=== PATIENT | female | born 1965 | race Caucasian/White ===

== ENCOUNTER 2017-06-29 14:43 | Observation (INO) | payer BC, SELFPAY ==
[2017-06-29] VITALS (13 sets, daily range): BP systolic 128–215; BP diastolic 68–98; PULSE 54–76; RESP 16–28; TEMP 36.8–36.9; O2SAT 97–100; BMI 27.1
--- NOTE | 2017-06-29 15:07 | CT_ITS ---
CT Abdomen And Pelvis W/ Contrast INDICATION: RUQ PAIN RADIATING TO MID ABD AND BACK, NAUSEA, HX-KS, GERD, HTN COMPARISON: February 2014 TECHNIQUE: Axial CT imaging of the abdomen and pelvis with IV contrast. Coronal and sagittal reformatted images. 100 mL of Isovue-300 were given intravenously. FINDINGS: The visualized lung bases are clear. The heart size is normal. The liver, spleen, adrenal glands, and pancreas are unremarkable. There is questionable focal gallbladder wall thickening anteriorly, unchanged compared to 2014.. The gallbladder is nondistended. The kidneys enhance contrast symmetrically bilaterally and are without evidence of hydronephrosis. Bowel loops are nondistended. Appendix is unremarkable. Oral contrast material is seen in the stomach and throughout the nondistended small bowel loops and colon. Uterus and urinary bladder are unremarkable. There is no evidence of free air or free fluid. Osseous structures demonstrate degenerative disc disease at L4-5 and L5-S1. CT/Abdomen/Pelvis WITH Contrast IMPRESSION: No acute abnormality in the abdomen or pelvis identified. at 1844 Reported and signed by: Raissa Best MD Electronically Signed: Raissa Best MD at 17:43 EDT Tel , Service support ,
--- NOTE | 2017-06-29 15:10 | ED.DCSUM_ITS ---
- ER Visit Summary Date of Service: 06/29/17 Chief Complaint: Abdominal pain History of Present Illness: The patient is a 52 F with 1 month history of waxing and waning right upper quadrant abdominal pain. She reports having a fever last week she had intermittent nausea and diarrhea. She has very poor appetite but states pain is worsened with food. She reportedly had an ultrasound last week at [facility] that was unremarkable. She has a CT scan of the abdomen scheduled this coming week. Today she presents secondary to increased pain and elevated blood pressure with the pain. Physical Examination: Vital signs are unremarkable. Blood pressure here is 128/ 77. Head neck examination is unremarkable. Heart is regular rate and rhythm. Lung sounds are clear. Abdomen is soft with mild right upper quadrant tenderness palpation. There is no guarding or rebound. She has active bowel sounds noted. Lower extremity examination was no calf tenderness or edema. She has strong distal pulses throughout. Neuro exam is unremarkable. Test Results: EKG is sinus bradycardia at 54 bpm with no sign of acute ischemia. Chest x-ray is unremarkable. CBC and chemistry studies normal. LFTs and lipase normal. Urinalysis is normal. Troponin is less than 0.02. test is negative. CT abdomen pelvis with contrast shows no acute abnormality. Emergency Department Course and Treatment: Patient was given morphine, Zofran, and IV fluids. Although she had a normal blood pressure 128/77 in triage, the next 2 blood pressure readings were 198/84 and 208/89. Manual blood pressure was checked in each arm and these were noted to be accurate. Patient now states that she has been having chest pressure today with elevated BP. The troponin and chest x-ray were added on secondary to this. Patient was given 10 mg of IV hydralazine and blood pressure is currently 162/95. Patient will be admitted for hypertensive urgency. Treatment Plan: [] Disposition: Admit Impression: 1. Hypertensive urgency 2. Right upper quadrant pain, uncertain etiology This note was generated with [employer] dictation software. It may contain incorrect words, spelling, and punctuation that were not noted in review of the chart prior to signing ED Disposition - Plan for ED Patient: Chief Complaint: Abd Pain Referrals: Hilda Hatch MD [Primary Care Provider] -
[2017-06-29] MEDS: Ondansetron 4 MG/2 ML Vial IV (15:23)
[2017-06-29] MEDS: 0.9% Normal Saline 1,000 ML 150 ML IV (15:23)
[2017-06-29] MEDS: Morphine 4 MG/ML Syringe IV (15:23)
[2017-06-29 15:49] LABS: Absolute Lymphocyte Count 1.23 X10^3/ul (0.83-4.51); Absolute Neutrophil Count 6.8 X10^3/uL (2.0-7.7); Basophil# 0.01 X10^3/uL; Basophil% 0.1 % (0-1); Eosinophil# 0.04 X10^3/uL; Eosinophils% 0.5 % (0-5); Hematocrit 40.2 % (37-47); Hemoglobin 13.6 g/dl (12.0-15.0); Lymphocyte # 1.23 X10^3/ul (4.0); Lymphocyte % 14.1 % (19-41); Mean Corp Hgb Conc 33.8 g/gl (32-36); Mean Corpuscular Hgb 29.6 pg (27.0-32.0); Mean Corpuscular Volume 87.6 fL (81-99); Mean Platelet Vol. 9.7 fl (6.2-12.0); Monocyte# 0.61 X10^3/uL; Neutrophil # 6.83 X10^3/uL (2.7-7.7); Neutrophil % 78.2 % (47-70); Platelet Count 262 K/mm3 (150-450); RBC Distribution Width CV 13.1 % (11.6-14.6); RBC Distribution Width SD 40.9 fl (35.1-43.9); Red Blood Count 4.59 M/mm3 (4.2-5.4); White Blood Count 8.7 K/mm3 (4.4-11.0)
[2017-06-29 15:50] LABS: POSITIVE COUNT NO; POSITIVE DIFFERENTIAL NO; POSITIVE MORPHOLOGY NO
[2017-06-29 16:02] LABS: AST(SGOT) 17 U/L (15-37); Alanine Aminotransfer ALT/SGPT 21 U/L (13-56); Albumin, Serum 3.6 g/dL (3.2-5.0); Alkaline Phosphatase 61 U/L (45-117); Anion Gap 8 (5-15); BUN 8 mg/dL (7-18); BUN/Creat Ratio 9.7 RATIO (10-20); Calcium,Total 9.1 mg/dL (8.5-10.1); Chloride 105 mmol/L (98-107); Creatinine, Serum 0.83 mg/dL (0.55-1.02); EST Glomerular Filtration Rate 77 mL/min (>60); Est Glom Filt Rate - Afr Amer 94 mL/min (>60); Estimated Creatinine Clearance 72.16 ml/min; Globulin 3.7 g/dL (2.2-4.2); Glucose 112 mg/dL (74-106); Lipase 181 U/L (73-393); Potassium 3.5 mmol/L (3.5-5.1); Protein, Total 7.3 g/dL (6.4-8.2); Sodium Level 141 mmol/L (136-145)
[2017-06-29 16:05] LABS: Pregnancy, Serum, hCG Quali. NEGATIVE Negative (0-9 Nonpreg)
[2017-06-29 16:55] LABS: Bacteria 0 SEEN /hpf (None Seen); Mucous, Urine 0 SEEN /hpf (<or=2+); Red Blood Cells-Urine 0 SEEN /hpf (0-5); White Blood Cells 0 SEEN /hpf (0-5)
[2017-06-29 16:56] LABS: Color, Urine Straw (Yellow); Glucose, Dipstick Normal (Normal); Ketone-Dipstick Negative (Negative); Leukocyte Esterase-Dipstick Negative /ul (Negative); Nitrite-Dipstick Negative (Negative); Occult Blood-Urine 150 /ul (Negative); Protein-Dipstick Negative (Negative); Urine Bilirubin Dipstick Negative (Negative); Urine Clarity Clear (Clear); Urine Urobilinogen Normal (Normal)
[2017-06-29 17:04] LABS: Squamous Epithelial Cells - UA 0-5 SEEN /hpf (5-10)
--- NOTE | 2017-06-29 17:39 | ED.RN ---
DR RAMOS NOTIFIED OF MANUAL BP RESULTS
--- NOTE | 2017-06-29 17:52 | EKG12_ITS ---
Test Reason : CHEST PAIN Blood Pressure : / mmHG Vent. Rate : 054 BPM Atrial Rate : 054 BPM P-R Int : 126 ms QRS Dur : 082 ms QT Int : 438 ms P-R-T Axes : 052 020 012 degrees QTc Int : 415 ms Sinus bradycardia with sinus arrhythmia Otherwise normal ECG Confirmed by LINDSEY GONZALES, YVETTE ([id number]), technical editor LINDY RAMIREZ ([id number]) on 07/02/2017 1:23:49 PM Referred By: Confirmed By:YVETTE PORTILLO MD
--- NOTE | 2017-06-29 18:05 | RAD_ITS ---
STUDY: X-RAY CHEST REASON FOR EXAM: Female, 52 years old. Hypertension. TECHNIQUE: Single frontal view of the chest. COMPARISON: None. FINDINGS: The lungs are mildly hyperexpanded. There is scarring in the left midlung zone. There is no demonstrated pleural abnormality. Normal size heart. Normal mediastinum and jeff. Normal visualized pulmonary arteries. Normal visualized aortic arch and descending thoracic aorta. Normal visualized thoracic spine. Normal visualized ribs, clavicles, and shoulders. There is no demonstrated abnormality of the visualized soft tissue structures of the upper abdomen. RAD/Chest 1 View (Portable) IMPRESSION: No acute pathology of the chest. Electronically Signed: Ethan Jacome MD at 18:40 EDT , Service support ,
[2017-06-29] MEDS: hydrALAZINE 20 MG/ML Vial 10 MG IV (18:24)
--- NOTE | 2017-06-29 20:26 | PCM.HP.STD ---
Problem List (1) Hypertensive urgency Status: Acute (2) Abdominal pain Status: Acute (3) Diarrhea Status: Acute History of Present Illness Date of Admission: 06/29/17 Chief Complaint: HTN urgency The patient is a 52 year old female w/ h/o HTN admitted for HTN urgency. She has a h/o intermittent abdominal pain. Pain is across her upper abdominal area. Nothing made it better or worse. It is not associated with food. Pain is moderate to severe and would last for hours. She has been having poor appetite because of the pain. She also has intermittent nausea. She has not had any relief in her symptoms for the past few days and went to the ED for further workup. She also noted that her blood pressure would be high secondary to her abdominal pain. Past Medical History Allergies nitrofurantoin [From Macrobid] Allergy (Verified 06/29/17 14:45) Rash nitrofurantoin macrocrystalline [From Macrobid] Allergy (Verified 06/29/17 14:45) Rash phenazopyridine [From Pyridium] Allergy (Verified 06/29/17 14:45) Rash acetaminophen [From Darvocet-N] Adverse Reaction (Verified 06/29/17 14:45) Other bupropion HCl [From Wellbutrin] Adverse Reaction (Verified 06/29/17 14:45) Nausea propoxyphene napsylate [From Darvocet-N] Adverse Reaction (Verified 06/29/17 14:45) Other Home Medications: Ambulatory Orders Medication Instructions Recorded Hydrocodone Bitart/Apap 5-325 1 tablet PO Q6H PRN PRN 06/29/17 [[place] 5MG-325MG] Metoprolol Succinate [Toprol Xl] 50 mg PO BID 06/29/17 Metoprolol Tartrate 50 mg PO BID 06/29/17 Omeprazole 20 mg PO BID 06/29/17 Ranitidine HCl [Zantac 75] 75 mg PO DAILY PRN 06/29/17 Smoking Status: Former smoker Alcohol: None Drugs: None - *Family History Maternal History Items: No pertinent history Review of Systems Constitutional: Denies: Chills, Fever, Weight Change HEENT: Denies: Head Aches, Sinus Congestion, Sinus Drainage Cardiovascular: Denies: Chest Pain, Palpitations Respiratory: Denies: Cough, Shortness of breath at rest, Sputum production Gastrointestinal: Denies: Abdominal Pain, Nausea, Vomiting Genitourinary: Denies: Dysuria Musculoskeletal: Denies: Joint Pain, Joint Tenderness Skin: Denies: Rash, Wounds Neurological: Denies: Numbness, Tingling, Focal weakness Psychiatric: Denies: Anxiety, Depression, Homicidal Ideations, Suicidal Ideations Hematologic/ Lymphatic: Denies: Easy Bruising, Easy Bleeding VTE Information - Inpt Only VTE Present on Admission: No VTE Mechan Device Prophylaxis: SCD's VTE Pharm Prophylaxis ordered?: Yes Patient Problems: Active and Suspected Problems Hypertensive urgency (Acute) Abdominal pain (Acute) Diarrhea (Acute) - Physical Exam General: Alert, Oriented x3, Cooperative HEENT: Atraumatic, PERRLA, EOMI, Normocephalic Neck: Supple, No JVD, Negative Carotid Bruits Lungs: Clear to auscultation, Normal air movement Cardiovascular: Regular rate, No murmurs Abdomen: Bowel Sounds Present, Soft, Non Tender Extremities: No edema, Capillary Refill Less than 3 Seconds Skin: No rashes, No breakdown Musculoskeletal: No Tenderness to Palpation of Joints or Extremities Neurological: Cranial nerves II-XII grossly intact Psych/Mental Status: Normal Affect, Appropriate Vital Signs Temp Pulse Resp BP Pulse Ox 98.3 F 74 28 H 197/98 H 100 06/29/17 19:32 06/29/17 20:01 06/29/17 20:01 06/29/17 20:01 06/29/17 20:01 Oxygen Delivery Method Room Air Weight: 73.936 kg Body Mass Index (BMI) 27.1 Laboratory Tests Past 24 Hrs 06/29/17 06/29/17 06/29/17 15:30 15:30 15:30 WBC 8.7 RBC 4.59 Hgb 13.6 Hct 40.2 MCV 87.6 MCH 29.6 MCHC 33.8 RDW 13.1 RDW Differential 40.9 Plt Count 262 MPV 9.7 Immature Gran % (Auto) 0.100 Neut % (Auto) 78.2 H Lymph % (Auto) 14.1 L [place] % (Auto) 7.0 Eos % (Auto) 0.5 Baso % (Auto) 0.1 Absolute Neuts (auto) 6.8 Absolute Lymphs (auto) 1.23 Total Counted Not Reportable Sodium 141 Potassium 3.5 Chloride 105 Carbon Dioxide 28.0 Anion Gap 8 BUN 8 Creatinine 0.83 Estim Creat Clear Calc 72.16 Est GFR (MDRD) Af Amer 94 Est GFR (MDRD) Non-Af 77 BUN/Creatinine Ratio 9.7 L Glucose 112 H Calcium 9.1 Total Bilirubin 0.40 Direct Bilirubin 0.10 AST 17 ALT 21 Alkaline Phosphatase 61 Troponin I Total Protein 7.3 Albumin 3.6 Globulin 3.7 Lipase 181 Serum , Qual NEGATIVE Urine Color Urine Clarity Urine pH Ur Specific Irene Urine Protein Urine Glucose (UA) Urine Ketones Urine Occult Blood Urine Nitrite Urine Bilirubin Urine Urobilinogen Ur Leukocyte Esterase Urine RBC Urine WBC Ur Squamous Epith Cells Urine Bacteria Urine Mucus 06/29/17 06/29/17 15:30 16:40 WBC RBC Hgb Hct MCV MCH MCHC RDW RDW Differential Plt Count MPV Immature Gran % (Auto) Neut % (Auto) Lymph % (Auto) [place] % (Auto) Eos % (Auto) Baso % (Auto) Absolute Neuts (auto) Absolute Lymphs (auto) Total Counted Sodium Potassium Chloride Carbon Dioxide Anion Gap BUN Creatinine Estim Creat Clear Calc Est GFR (MDRD) Af Amer Est GFR (MDRD) Non-Af BUN/Creatinine Ratio Glucose Calcium Total Bilirubin Direct Bilirubin AST ALT Alkaline Phosphatase Troponin I < 0.02 Total Protein Albumin Globulin Lipase Serum , Qual Urine Color Straw Urine Clarity Clear Urine pH 8.0 Ur Specific Irene 1.010 Urine Protein Negative Urine Glucose (UA) Normal Urine Ketones Negative Urine Occult Blood 150 H Urine Nitrite Negative Urine Bilirubin Negative Urine Urobilinogen Normal Ur Leukocyte Esterase Negative Urine RBC 0 SEEN Urine WBC 0 SEEN Ur Squamous Epith Cells 0-5 SEEN Urine Bacteria 0 SEEN Urine Mucus 0 SEEN Assessment/Plan Active and Suspected Problems Hypertensive urgency (Acute) Abdominal pain (Acute) Diarrhea (Acute) 52 year old female w/ h/o HTN admitted for HTN urgency. 1) HTN urgency: Most likely secondary to pain. Improving. Resume home meds. Monitor. 2) Abdominal pain: Unclear etiology. Workup negative. Possible inflammatory bowel disease given fecal lactoferrin positive. Infectious workup and FOBT pending. Will consider outpt workup, including colonoscopy if needed to r/o inflammatory bowel disease. 3) Diarrhea: Will get stool cultures. C. diff negative. Supportive care. 4) Prophylaxis: SCD / heparin.
[2017-06-29] MEDS: 0.45% Normal Saline 1,000 ML 125 ML IV (22:18)
[2017-06-29] MEDS: HYDROcodone Bitartrate/Apap 5/325 Tablet PO (22:18)
[2017-06-29] MEDS: Pantoprazole Sodium 20 MG Tablet PO (22:18)
[2017-06-29] MEDS: amLODIPine 10 MG Tablet PO (22:19)
[2017-06-29 22:50] LABS: Lactic Acid 0.7 mmol/L (0.4-2.0)
[2017-06-29] MEDS: Metoprolol Tartrate 50 MG Tablet PO (23:08)
[2017-06-30] VITALS (13 sets, daily range): BP systolic 159–160; BP diastolic 85–91; PULSE 57–82; RESP 16–18; TEMP 36.2–36.3; O2SAT 98
[2017-06-30 00:22] LABS: Amphetamine Urine VISTA NEGATIVE (<1000 ng/mL); Barbiturate Urine VISTA NEGATIVE (< 200 ng/mL); Benzodiazepine Urine VISTA NEGATIVE (< 200 ng/mL); Cocaine Urine VISTA NEGATIVE (< 300 ng/mL); Ecstacy Urine VISTA NEGATIVE (< 500 ng/mL); Methadone Urine VISTA NEGATIVE (< 300 ng/mL); PCP Urine VISTA NEGATIVE (< 25 ng/mL); THC Urine VISTA NEGATIVE (< 50 ng/mL); Vista UDS pH Range 6
[2017-06-30] MEDS: HYDROcodone Bitartrate/Apap 5/325 Tablet PO ×2 (04:31→14:57)
[2017-06-30] MEDS: 0.45% Normal Saline 1,000 ML 125 ML IV (06:10)
[2017-06-30 06:36] LABS: Absolute Lymphocyte Count 1.67 X10^3/ul (0.83-4.51); Absolute Neutrophil Count 4.4 X10^3/uL (2.0-7.7); Basophil# 0.01 X10^3/uL; Basophil% 0.2 % (0-1); Eosinophils% 1.5 % (0-5); Hematocrit 40.9 % (37-47); Hemoglobin 13.4 g/dl (12.0-15.0); Lymphocyte # 1.67 X10^3/ul (4.0); Lymphocyte % 25.1 % (19-41); Mean Corp Hgb Conc 32.8 g/gl (32-36); Mean Corpuscular Hgb 29.4 pg (27.0-32.0); Mean Corpuscular Volume 89.7 fL (81-99); Mean Platelet Vol. 9.4 fl (6.2-12.0); Monocyte# 0.51 X10^3/uL; Monocyte% 7.7 % (0-10); Neutrophil # 4.36 X10^3/uL (2.7-7.7); Neutrophil % 65.3 % (47-70); Platelet Count 205 K/mm3 (150-450); RBC Distribution Width CV 13.3 % (11.6-14.6); RBC Distribution Width SD 43.1 fl (35.1-43.9); Red Blood Count 4.56 M/mm3 (4.2-5.4); White Blood Count 6.7 K/mm3 (4.4-11.0)
[2017-06-30 06:47] LABS: POSITIVE COUNT NO; POSITIVE DIFFERENTIAL NO; POSITIVE MORPHOLOGY NO
[2017-06-30 07:11] LABS: Anion Gap 7 (5-15); BUN 6 mg/dL (7-18); BUN/Creat Ratio 8.6 RATIO (10-20); Calcium,Total 8.9 mg/dL (8.5-10.1); Chloride 104 mmol/L (98-107); EST Glomerular Filtration Rate 94 mL/min (>60); Est Glom Filt Rate - Afr Amer 114 mL/min (>60); Estimated Creatinine Clearance 85.56 ml/min; Glucose 105 mg/dL (74-106); Potassium 3.6 mmol/L (3.5-5.1); Sodium Level 138 mmol/L (136-145)
[2017-06-30] MEDS: Ondansetron ODT 4 MG Tablet PO (09:28)
[2017-06-30] MEDS: Pantoprazole Sodium 20 MG Tablet PO ×2 (09:34→22:00)
[2017-06-30] MEDS: Metoprolol Tartrate 50 MG Tablet PO ×2 (09:34→22:00)
[2017-06-30] MEDS: hydroCHLOROthiazide 25 MG Tablet PO (09:34)
--- NOTE | 2017-06-30 10:28 | PN_ITS ---
Patient Problems: Active and Suspected Problems Hypertensive urgency (Acute) Abdominal pain (Acute) Diarrhea (Acute) Subjective: Cc: Elevated blood pressure, atypical chest pain Objective: The patient is a 52 F presented waxing and waning right upper quadrant abdominal pain to have elevated blood pressure with systolic blood pressure > 190. When I saw her on rounds she was pointing to her chest and not her abdomen. GB ultrasound done as an outpatient was negative for cholecystopathy. Vitals/I&O's: Vital Signs Temp Pulse Resp BP Pulse Ox 97.2 F L 82 18 159/85 H 98 06/30/17 09:43 06/30/17 09:43 06/30/17 09:43 06/30/17 09:43 06/30/17 09:43 Oxygen Delivery Method Room Air Weight: 73.9 kg Body Mass Index (BMI) 27.1 Intake and Output for Last 24 Hours 06/28/17 06/29/17 06/30/17 23:59 23:59 23:59 Intake Total 496 / 496 1016 / 1016 Output Total 600 / 600 Balance 496 / 496 416 / 416 Microbiology Past 72 Hours 06/30/17 09:05 Stool Stool Occult Blood (KHOI) - Final Occult Blood Positive 06/29/17 22:20 Stool C. difficile DNA Amplification - Final 06/29/17 22:20 Stool Stool Lactoferrin - Final Laboratory Results 06/29/17 22:00: Troponin I < 0.02 06/29/17 22:00: Lactic Acid 0.7 06/29/17 23:30: Urine Opiates Screen POSITIVE H, Urine Methadone Screen NEGATIVE , Ur Barbiturates Screen NEGATIVE, Ur Phencyclidine Scrn NEGATIVE, Ur Amphetamines Screen NEGATIVE, U Methamphetamin-MDMA NEGATIVE, U Benzodiazepines Scrn NEGATIVE, Urine Cocaine Screen NEGATIVE, U Cannabinoids Screen NEGATIVE, Ur Drug Screen Comment 06/30/17 00:33: Troponin I < 0.02 06/30/17 06:02: Sodium 138, Potassium 3.6, Chloride 104, Carbon Dioxide 27.0, Anion Gap 7, BUN 6 L, Creatinine 0.70, Estim Creat Clear Calc 85.56, Est GFR ( MDRD) Af Amer 114, Est GFR (MDRD) Non-Af 94, BUN/Creatinine Ratio 8.6 L, Glucose 105, Calcium 8.9, Troponin I < 0.02 06/30/17 06:02: WBC 6.7, RBC 4.56, Hgb 13.4, Hct 40.9, MCV 89.7, MCH 29.4, MCHC 32.8, RDW 13.3, RDW Differential 43.1, Plt Count 205, MPV 9.4, Immature Gran % ( Auto) 0.200, Neut % (Auto) 65.3, Lymph % (Auto) 25.1, [place] % (Auto) 7.7, Eos % ( Auto) 1.5, Baso % (Auto) 0.2, Absolute Neuts (auto) 4.4, Absolute Lymphs (auto) 1.67, Total Counted Not Reportable Current Medications Hydrocodone Bitart/Acetaminophen ([place] 5mg-325mg) 1 tablet PO Q6H PRN PRN PRN Reason: PAIN Last Admin: 06/30/17 04:31 Dose: 1 tablet Famotidine (Pepcid) 10 mg PO DAILY PRN PRN PRN Reason: INDIGESTION Heparin Sodium (Porcine) (Heparin Na) 5,000 unit SC Q8 [facility] Last Admin: 06/30/17 06:10 Dose: 5,000 u Hydrochlorothiazide (Hctz) 25 mg PO DAILY [facility] Last Admin: 06/30/17 09:34 Dose: 25 mg Sodium Chloride () 1,000 mls @ 125 mls/hr IV .Q8H [facility] Last Admin: 06/30/17 06:10 Dose: 125 mls/hr Sodium Chloride () 250 mls @ 15 mls/hr IV .[id number] PRN PRN Reason: SALINE FLUSH Magnesium Hydroxide (Milk Of Magnesia) 30 ml PO DAILY PRN PRN PRN Reason: Constipation Metoprolol Tartrate (Lopressor (Beta Saloni)) 50 mg PO BID [facility] Last Admin: 06/30/17 09:34 Dose: 50 mg Morphine Sulfate () 2 mg IV Q4H PRN PRN PRN Reason: SEVERE PAIN (6-10/10) Nutritional Formula (Lactose Free) (Ensure Clear) 120 ml PO 4X/DAY [facility] Ondansetron HCl (Zofran Odt) 4 mg PO Q8H PRN PRN PRN Reason: NAUSEA/VOMITING Last Admin: 06/30/17 09:28 Dose: 4 mg Pantoprazole Sodium (Protonix) 20 mg PO BID [facility] Last Admin: 06/30/17 09:34 Dose: 20 mg Sodium Chloride () 5 - 30 ml IV UD PRN PRN Reason: SALINE FLUSH Medical Necessity - Tobacco Use Smoking Status: Former smoker Assessment/Plan Active and Suspected Problems Hypertensive urgency (Acute) Abdominal pain (Acute) Diarrhea (Acute) 1. Hypertension; she is on metoprolol and hydrochlorothiazide, will add lisinopril for optimal control 2. Chest pain; atypical for angina, we will schedule for stress test tomorrow morning. 3. Dyspepsia ; possible cholecystopathy, CT scan of the abdomen showed questionable gallbladder wall thickening, gallbladder ultrasound done as an outpatient was normal,the patient can follow with her primary care doctor as an outpatient for further management. Continue on PPI. 4. anxiety ; she is requesting low dose Xanax. 5. Early ambulation for DVT prophylaxis Code Visit Inpatient E&M: 02326 Subs Hosp L2
[2017-06-30] MEDS: ALPRAZolam 0.25 MG Tablet 0.125 MG PO ×2 (11:17→22:01)
[2017-07-01] VITALS (7 sets, daily range): BP systolic 129–153; BP diastolic 79–93; PULSE 55–71; RESP 16; TEMP 36.6–36.7; O2SAT 97–100
[2017-07-01] MEDS: 0.9% NaCl Peripheral Flush Adult/Peds IV (06:01)
--- NOTE | 2017-07-01 10:15 | CM.UR ---
Per interdisciplinary rounds, plan is for dc today if stress test is negative per Dr. Tang. Dr. Vazquez to see pt prior to dc and f/u outpt if needed. Rosendo BSN RN ACM
--- NOTE | 2017-07-01 11:55 | STRESSREP ---
Stress Test Report Exercise myocardial perfusion stress test. 52-year-old lady with a history of chest pain. Stress protocol: Resting EKG demonstrates normal sinus rhythm with rate of 67 bpm normal intervals and noted resting blood pressure is 152/98 mmHg. The patient exercised according to the regular Emery protocol for a total duration of 7 minutes. The maximum heart rate attained was 169 bpm which was 100% of the maximum predicted heart rate the maximum workload attained was 8.5 metabolic equivalents. At rest there were no ST or T-wave changes noted suggest ischemia at peak exercise no ST or T-wave changes were noted suggest ischemia. No clinical angina was noted. The resting blood pressure was 152/98 with a peak blood pressure 192 over 70 mmHg. Myocardial perfusion protocol. 10.6 mCi of technetium 99m sestamibi was injected at rest. The patient exercised according to regular Emery protocol for total duration of 7 minutes attaining 100% of maximum predicted heart rate at peak exercise 32.9 mCi of technetium 99m sestamibi was injected. Stress and rest images were reconstructed and compared in the short axis vertical long and horizontal long axis. Gated images were also obtained Perfusion SPECT analysis. Review of the stress images demonstrate normal uptake of tracer noted in all areas of the myocardium the resting images similarly demonstrate normal uptake of tracer noted in all areas of the myocardium. No areas of reversibility are noted suggest ischemia and no previous infarct is noted. Gated SPECT analysis: The gated ejection fraction is noted to be 65%. Conclusion: Normal exercise myocardial perfusion stress test at a moderate workload. Resting hypertension and hypertensive response to exercise. Preserved ejection fraction.
[2017-07-01] MEDS: hydroCHLOROthiazide 25 MG Tablet PO (11:58)
[2017-07-01] MEDS: Pantoprazole Sodium 20 MG Tablet PO (11:59)
[2017-07-01] MEDS: Metoprolol Tartrate 50 MG Tablet PO (11:59)
[2017-07-01] MEDS: ALPRAZolam 0.25 MG Tablet 0.125 MG PO (12:01)
[2017-07-01] MEDS: Lisinopril 10 MG Tablet PO (12:01)
[2017-07-01] MEDS: Ondansetron ODT 4 MG Tablet PO (12:02)
--- NOTE | 2017-07-01 16:00 | DCINST_ITS ---
- Discharge Diagnoses Current Active Problems: Current Active and Chronic Problems Hypertensive urgency (Acute) Abdominal pain (Acute) Diarrhea (Acute) You will use the following diet at home:: Regular Discharge Activity: Return to Normal Activity Call your doctor if you observe: Fever of 101 or Higher Allergies/Adverse Reactions: Allergies nitrofurantoin [From Macrobid] Allergy (Verified 06/29/17 14:45) Rash nitrofurantoin macrocrystalline [From Macrobid] Allergy (Verified 06/29/17 14:45 ) Rash phenazopyridine [From Pyridium] Allergy (Verified 06/29/17 14:45) Rash acetaminophen [From Darvocet-N] Adverse Reaction (Verified 06/29/17 14:45) Other bupropion HCl [From Wellbutrin] Adverse Reaction (Verified 06/29/17 14:45) Nausea propoxyphene napsylate [From Darvocet-N] Adverse Reaction (Verified 06/29/17 14: 45) Other Medications to take at Discharge Hydrocodone Bitart/Apap 5-325 [[place] 5/325] 1 tablet PO Q6H PRN PRN 06/29/17 Metoprolol Succinate [Toprol Xl] 50 mg PO BID 06/29/17 Metoprolol Tartrate 50 mg PO BID 06/29/17 Omeprazole 20 mg PO BID 06/29/17 Ranitidine HCl [Zantac 75] 75 mg PO DAILY PRN 06/29/17 Hydrochlorothiazide [Hctz] 25 mg PO DAILY #30 tab 07/01/17 Lisinopril [Zestril] 10 mg PO DAILY #30 tab 07/01/17 Potassium Chloride 10 meq PO DAILY #14 tablet.er 07/01/17 The following prescriptions were given: Hydrochlorothiazide [Hctz] 25 mg PO DAILY #30 tab Lisinopril [Zestril] 10 mg PO DAILY #30 tab Potassium Chloride 10 meq PO DAILY #14 tablet.er Primary Care Physician: Hilda Hatch MD [Primary Care Provider] - Please follow up with your Primary Care Physician in: in 2 weeks Please Follow Up With: Aman Vazquez MD When: call rico to make apointment
--- NOTE | 2017-07-01 16:00 | PCM.DC.SUM ---
Discharge Date and Diagnosis Date of Admission: 06/29/17 Date of Discharge: 07/01/17 - Primary Discharge Diagnosis Active and Suspected Problems 1) HTN urgency: 2. Nonspecific anterior chest pain probably radiation from abdominal pain/dyspeptic symptoms: 2) acute on recurrent abdominal pain: possible gallbladder dyskinesia/nonspecific dyspepsia/gastritis: 3) acute diarrhea, nonspecific, most probably viral gastroenteritis: Resolved. C. diff negative. Enteric Bacteroides panel was negative. Hospital Course and Treatment Summary of Care Provided: The patient is a52 year old female w/ h/o HTN admitted for HTN urgency. She also has intermittent right upper quadrant abdominal pain on and off for 2-3 months associated with intermittent nausea. Her pain gets worse after about half an hour of meal. She was further admitted on [facility] floor for uncontrolled blood pressure and abdominal pain. 1) HTN urgency: Acute coronary syndrome was ruled out with negative cardiac enzymes. Her blood pressure was controlled after starting on HCTZ 25 mg daily and lisinopril 10 mg daily. Patient was advised to follow-up PCP in 2 weeks and home blood pressure monitoring before breakfast and adjust antihypertensive medication accordingly in consultation with PCP. 2. Nonspecific anterior chest pain probably radiation from abdominal pain/dyspeptic symptoms: Patient had a stress test today. A stress dose was negative for myocardial ischemia. 2) Abdominal pain: possible gallbladder dyskinesia/nonspecific dyspepsia/gastritis: CT scan of the abdomen showed questionable gallbladder wall thickening, gallbladder ultrasound done as an outpatient was normal. Dr. Fragoso was consulted. On further review her medical record, she had a HIDA scan about 2 years ago with 90% EF. She also had colonoscopy by Dr. Cabral at that time which showed 1 polyp. She had home remedy advised by chiropractor with [facility] on all which she thinks flow start her gallstone but had severe abdominal pain at that time. Dr. Fragoso consult reviewed and appreciated. He recommended outpatient HIDA and further management as per HIDA scan report. Continue on PPI. 3) acute diarrhea, nonspecific, most probably viral gastroenteritis: Resolved. C. diff negative. Enteric Bacteroides panel was negative. Supportive care. 4) Prophylaxis: SCD / heparin. The patient is being discharged home. Discharge medication reconciliation done. Prescription for antihypertensive medications, HCTZ and lisinopril sent to her pharmacy. Total time spent, exact 32 minutes on discharge meds reconciliation, examination, review of imaging and blood test and discussion with the patient on follow-up instructions. Discharge Activity: Return to Normal Activity Call your doctor if you observe: Fever of 101 or Higher Home Medications: Medications to take at Discharge Hydrocodone Bitart/Apap 5-325 [[place] 5/325] 1 tablet PO Q6H PRN PRN 06/29/17 Metoprolol Succinate [Toprol Xl] 50 mg PO BID 06/29/17 Metoprolol Tartrate 50 mg PO BID 06/29/17 Omeprazole 20 mg PO BID 06/29/17 Ranitidine HCl [Zantac 75] 75 mg PO DAILY PRN 06/29/17 Hydrochlorothiazide [Hctz] 25 mg PO DAILY #30 tab 07/01/17 Lisinopril [Zestril] 10 mg PO DAILY #30 tab 07/01/17 Potassium Chloride 10 meq PO DAILY #14 tablet.er 07/01/17 Following Prescrptions Were Given to Patient: Hydrochlorothiazide [Hctz] 25 mg PO DAILY #30 tab Lisinopril [Zestril] 10 mg PO DAILY #30 tab Potassium Chloride 10 meq PO DAILY #14 tablet.er Primary Care Physician: Hilda Hatch MD [Primary Care Provider] - Please follow up with your Primary Care Physician in: in 2 weeks Please Follow Up With: Aman Vazquez MD When: call rico to make apointment Medical Necessity - Tobacco Use Smoking Status: Former smoker Meaningful Use Info Meaningful Use Diagnoses (Choose all that apply): None applicable Code Visit Inpatient E&M: 64236 Disch Hosp
--- NOTE | 2017-07-01 16:07 | PCM.CONS.GEN ---
Reason for Consult Date of Consultation: 07/01/17 History of Present Illness: The patient is a 52 year old F right upper quadrant pain. the patient has a long-standing history of right upper quadrant pain. Workup in the past has been negative. She had a hiatus scan with ejection fraction 2 years previously. this demonstrated 90% ejection fraction. The patient does not recall this reproduced her symptoms. The patient had seen Dr. Ovidio Cabral at that time. He recommended colonoscopy. Colonoscopy demonstrated a polyp. the patient was recommended 3 year follow-up colonoscopy. She did not have upper endoscopy. at that time, the patient took a home remedy gallbladder flush consisting of all of oil and vinegar. She feels she had significant abdominal cramping and then was followed by what she felt was passing a gallstone in her stool. Chicken, mashed potatoes, and bladder. She had severe epigastric to right upper quadrant pain. She presented to [facility]. She was admitted to rule out chest pain. The patient had negative cardiac enzymes. The patient had a negative stress test today. I was consulted for GI causes of upper abdominal pain-biliary colic versus peptic ulcer disease. The patient is a former smoker. she denies melena, hematochezia, nausea or vomiting. She does not take nonsteroidal medications. Her pain again is more right upper quadrant and is more colicky in nature. She says it is similar to when she had a kidney stone. she has chronic lower back pain. she had previous lumbar back surgery. 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 CT scan of the abdomen pelvis was obtained. This demonstrated no specific abnormalities. A right ovarian cyst was noted. Past Medical History Allergies nitrofurantoin [From Macrobid] Allergy (Verified 06/29/17 14:45) Rash nitrofurantoin macrocrystalline [From Macrobid] Allergy (Verified 06/29/17 14:45) Rash phenazopyridine [From Pyridium] Allergy (Verified 06/29/17 14:45) Rash acetaminophen [From Darvocet-N] Adverse Reaction (Verified 06/29/17 14:45) Other bupropion HCl [From Wellbutrin] Adverse Reaction (Verified 06/29/17 14:45) Nausea propoxyphene napsylate [From Darvocet-N] Adverse Reaction (Verified 06/29/17 14:45) Other Home Medications: Ambulatory Orders Medication Instructions Recorded Hydrocodone Bitart/Apap 5-325 1 tablet PO Q6H PRN PRN 06/29/17 [[place] 5/325] Metoprolol Succinate [Toprol Xl] 50 mg PO BID 06/29/17 Metoprolol Tartrate 50 mg PO BID 06/29/17 Omeprazole 20 mg PO BID 06/29/17 Ranitidine HCl [Zantac 75] 75 mg PO DAILY PRN 06/29/17 Hydrochlorothiazide [Hctz] 25 mg PO DAILY #30 tab 07/01/17 Lisinopril [Zestril] 10 mg PO DAILY #30 tab 07/01/17 Potassium Chloride 10 meq PO DAILY #14 tablet.er 07/01/17 Surgical History: - - surgical microdiscectomy. Lumbar Smoking Status: Former smoker Alcohol: None Drugs: None - *Family History Maternal History Items: No pertinent history Review of Systems Constitutional: Denies: Chills, Fever, Weight Change HEENT: Denies: Head Aches, Sinus Congestion, Sinus Drainage Cardiovascular: Denies: Chest Pain, Palpitations Respiratory: Denies: Cough, Shortness of breath at rest, Sputum production Gastrointestinal: Reports: Abdominal Pain. Denies: Nausea, Vomiting Genitourinary: Denies: Dysuria Musculoskeletal: Denies: Joint Pain, Joint Tenderness Skin: Denies: Rash, Wounds Neurological: Denies: Numbness, Tingling, Focal weakness Psychiatric: Denies: Anxiety, Depression, Homicidal Ideations, Suicidal Ideations Hematologic/ Lymphatic: Denies: Easy Bruising, Easy Bleeding Patient Problems: Active and Suspected Problems Hypertensive urgency (Acute) Abdominal pain (Acute) Diarrhea (Acute) - Physical Exam Vital Signs Temp Pulse Resp BP Pulse Ox 98.0 F 59 L 16 131/81 H 97 07/01/17 14:24 07/01/17 14:24 07/01/17 14:24 07/01/17 14:24 07/01/17 14:24 Oxygen Delivery Method Room Air Weight: 73.9 kg Body Mass Index (BMI) 27.1 Intake and Output for Last 24 Hours 06/29/17 06/30/17 07/01/17 23:59 23:59 23:59 Intake Total 496 / 496 1906 / 1906 620 / 620 Output Total 1400 / 1400 Balance 496 / 496 506 / 506 620 / 620 Microbiology Past 72 Hours 06/30/17 09:05 Enteric Bacteriology - Final Stool 06/30/17 09:05 Stool Occult Blood (KHOI) - Final Stool Occult Blood Positive 06/29/17 22:20 C. difficile DNA Amplification - Final Stool 06/29/17 22:20 Stool Lactoferrin - Final Stool Assessment/Plan Active and Suspected Problems Hypertensive urgency (Acute) Abdominal pain (Acute) Diarrhea (Acute) upper abdominal pain. the patient's stress test was negative. Up to this point, her right upper quadrant pain. Workup has been unremarkable area did we will plan for repeat hiatus scan with ejection fraction and see if this reproduces her symptoms. If she has a decreased ejection fraction, then I would proceed with laparoscopic cholecystectomy given her symptomatology. If this test is negative, then I would plan for upper endoscopy.
--- NOTE | 2017-07-01 16:19 | CON.PCM_ITS ---
Reason for Consult Date of Consultation: 07/01/17 History of Present Illness: The patient is a 52 year old F right upper quadrant pain. the patient has a long-standing history of right upper quadrant pain. Workup in the past has been negative. She had a hiatus scan with ejection fraction 2 years previously. this demonstrated 90% ejection fraction. The patient does not recall this reproduced her symptoms. The patient had seen Dr. Ovidio Cabral at that time. He recommended colonoscopy. Colonoscopy demonstrated a polyp. the patient was recommended 3 year follow-up colonoscopy. She did not have upper endoscopy. at that time, the patient took a home remedy gallbladder flush consisting of all of oil and vinegar. She feels she had significant abdominal cramping and then was followed by what she felt was passing a gallstone in her stool. Chicken, mashed potatoes, and bladder. She had severe epigastric to right upper quadrant pain. She presented to [facility]. She was admitted to rule out chest pain. The patient had negative cardiac enzymes. The patient had a negative stress test today. I was consulted for GI causes of upper abdominal pain-biliary colic versus peptic ulcer disease. The patient is a former smoker. she denies melena, hematochezia, nausea or vomiting. She does not take nonsteroidal medications. Her pain again is more right upper quadrant and is more colicky in nature. She says it is similar to when she had a kidney stone. she has chronic lower back pain. she had previous lumbar back surgery. 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 CT scan of the abdomen pelvis was obtained. This demonstrated no specific abnormalities. A right ovarian cyst was noted. Past Medical History Allergies nitrofurantoin [From Macrobid] Allergy (Verified 06/29/17 14:45) Rash nitrofurantoin macrocrystalline [From Macrobid] Allergy (Verified 06/29/17 14:45 ) Rash phenazopyridine [From Pyridium] Allergy (Verified 06/29/17 14:45) Rash acetaminophen [From Darvocet-N] Adverse Reaction (Verified 06/29/17 14:45) Other bupropion HCl [From Wellbutrin] Adverse Reaction (Verified 06/29/17 14:45) Nausea propoxyphene napsylate [From Darvocet-N] Adverse Reaction (Verified 06/29/17 14: 45) Other Home Medications: Ambulatory Orders Medication Instructions Recorded Hydrocodone Bitart/Apap 5-325 1 tablet PO Q6H PRN PRN 06/29/17 [[place] 5/325] Metoprolol Succinate [Toprol Xl] 50 mg PO BID 06/29/17 Metoprolol Tartrate 50 mg PO BID 06/29/17 Omeprazole 20 mg PO BID 06/29/17 Ranitidine HCl [Zantac 75] 75 mg PO DAILY PRN 06/29/17 Hydrochlorothiazide [Hctz] 25 mg PO DAILY #30 tab 07/01/17 Lisinopril [Zestril] 10 mg PO DAILY #30 tab 07/01/17 Potassium Chloride 10 meq PO DAILY #14 tablet.er 07/01/17 Surgical History: - - surgical microdiscectomy. Lumbar Smoking Status: Former smoker Alcohol: None Drugs: None - *Family History Maternal History Items: No pertinent history Review of Systems Constitutional: Denies: Chills, Fever, Weight Change HEENT: Denies: Head Aches, Sinus Congestion, Sinus Drainage Cardiovascular: Denies: Chest Pain, Palpitations Respiratory: Denies: Cough, Shortness of breath at rest, Sputum production Gastrointestinal: Reports: Abdominal Pain. Denies: Nausea, Vomiting Genitourinary: Denies: Dysuria Musculoskeletal: Denies: Joint Pain, Joint Tenderness Skin: Denies: Rash, Wounds Neurological: Denies: Numbness, Tingling, Focal weakness Psychiatric: Denies: Anxiety, Depression, Homicidal Ideations, Suicidal Ideations Hematologic/ Lymphatic: Denies: Easy Bruising, Easy Bleeding Patient Problems: Active and Suspected Problems Hypertensive urgency (Acute) Abdominal pain (Acute) Diarrhea (Acute) - Physical Exam Vital Signs Temp Pulse Resp BP Pulse Ox 98.0 F 59 L 16 131/81 H 97 07/01/17 14:24 07/01/17 14:24 07/01/17 14:24 07/01/17 14:24 07/01/17 14:24 Oxygen Delivery Method Room Air Weight: 73.9 kg Body Mass Index (BMI) 27.1 Intake and Output for Last 24 Hours 06/29/17 06/30/17 07/01/17 23:59 23:59 23:59 Intake Total 496 / 496 1906 / 1906 620 / 620 Output Total 1400 / 1400 Balance 496 / 496 506 / 506 620 / 620 Microbiology Past 72 Hours 06/30/17 09:05 Enteric Bacteriology - Final Stool 06/30/17 09:05 Stool Occult Blood (KHOI) - Final Stool Occult Blood Positive 06/29/17 22:20 C. difficile DNA Amplification - Final Stool 06/29/17 22:20 Stool Lactoferrin - Final Stool Assessment/Plan Active and Suspected Problems Hypertensive urgency (Acute) Abdominal pain (Acute) Diarrhea (Acute) upper abdominal pain. the patient's stress test was negative. Up to this point, her right upper quadrant pain. Workup has been unremarkable area did we will plan for repeat hiatus scan with ejection fraction and see if this reproduces her symptoms. If she has a decreased ejection fraction, then I would proceed with laparoscopic cholecystectomy given her symptomatology. If this test is negative, then I would plan for upper endoscopy.
--- NOTE | 2017-07-02 14:08 | CASEMGMT ---
DC summary faxed to Dr. Vazquez's office. Rosendo PENAN RN ACM
== END 2017-07-01 17:00 | disposition home or self-care (01) ==
LOC: ED 15:23 → PCU 20:27 → MS2 20:42
PROVIDERS: Admitting Provider Internal Medicine; Emergency Provider Emergency Medicine; Family Provider Internal Medicine; PCP Internal Medicine; Visit Provider Internal Medicine
DX: R07.89 Other chest pain (principal); R10.11 Right upper quadrant pain; I16.0 Hypertensive urgency; I10 Essential (primary) hypertension; R19.7 Diarrhea, unspecified; R11.0 Nausea; R00.1 Bradycardia, unspecified; F41.9 Anxiety disorder, unspecified; R10.13 Epigastric pain; G89.29 Other chronic pain; M54.5 Low back pain; Z87.891 Personal history of nicotine dependence; Z79.899 Other long term (current) drug therapy
CPT/HCPCS: 36415; 71045; 74177; 78452; 80048; 80076; 80307; 81001; 82274; 83605; 83630; 83690; 84484; 84703; 85025; 87493; 87506; 93005; 93017; 96361; 96372; 96374; 96375; 97802; 99218; 99283; A9500; J7030; J7040; Q9967; A4216; G0378; J2405; J2785

== ENCOUNTER → 2019-07-23 | Outpatient (CLI) | payer BC, SELFPAY | END | disposition home or self-care (01) | LOC: PSN 13:53 | PROVIDERS: PCP Internal Medicine; Referring Provider Internal Medicine; Visit Provider Internal Medicine | DX: R00.2 Palpitations (principal); I10 Essential (primary) hypertension | CPT/HCPCS: 93225; 93226 ==

== ENCOUNTER → 2019-08-20 | Outpatient (CLI) | payer BC, SELFPAY ==
[2019-07-28 09:59] VITALS: BMI 26.9
[2019-08-06 14:40] LABS: AST(SGOT) 14 U/L (15-37); Alanine Aminotransfer ALT/SGPT 24 U/L (13-56); Albumin, Serum 3.9 g/dL (3.2-5.0); Alkaline Phosphatase 77 U/L (45-117); Bilirubin, Direct 0.17 mg/dL (0.00-0.30); Cholesterol 164 mg/dL (200); High Density Lipoprotein 44 mg/dL; Protein, Total 7.9 g/dL (6.4-8.2); Triglycerides 87 mg/dL; Very Low Density Lipoprotein 17 mg/dL (5-40)
--- NOTE | 2019-08-20 13:56 | ECHOD_ITS ---
Reason For Study: Palpitations Procedure This was a 2D Doppler, Color Flow transthoracic echocardiogram. Exam performed in department. Left Ventricle Normal size and thickness. The estimated ejection fraction is 65 %. Stage 1 diastolic dysfunction. No regional wall motion abnormalities noted. Right Ventricle Normal size and thickness. Normal systolic function. Atria Normal left atrium. Normal right atrium. Normal atrial septum. Mitral Valve The mitral valve is structurally normal. No prolapse or stenosis seen. Tricuspid Valve Normal tricuspid valve. Trivial tricuspid valve insufficiency. Right ventricular systolic pressure estimated to be 26 mmHg. Aortic Valve Normal aortic valve. Trisinus/trileaflet aortic valve. Pulmonic Valve Normal pulmonic valve. Great Vessels Normal aortic root. Normal arch. Normal inferior vena cava. Inferior vena cava collapse with sniff. Pericardium/Pleural No pericardial effusion. MMode/2D Measurements & Calculations LVIDd: 4.0 cm IVSd: 1.1 cm Ao root diam: 2.7 cm LVIDs: 2.6 cm LVPWd: 1.1 cm RVDd: 2.9 cm FS: 35.3 % LAV(MOD-bp): 33.5 ml LA A4 area: 14.5 cm2 LA dimension(2D): 3.5 cm LAV(MOD-bp) Indexed: 18.7 ml/m2 LAV(MOD-sp2): 32.1 ml LAV(MOD-sp4): 35.1 ml RA A4 area: 10.2 cm2 Time Measurements MV dec time: 0.25 sec Doppler Measurements & Calculations MV E max adrian: 61.6 cm/sec Lat Peak E' Adrian: 8.9 cm/sec Med Peak E' Adrian: 4.4 cm/sec MV A max adrian: 86.1 cm/sec E/E' lat: 6.9 E/E' med: 14.0 MV E/A: 0.72 Ao V2 max: 137.8 cm/sec LV V1 max: 109.4 cm/sec PA V2 max: 100.0 cm/sec Ao max P.6 mmHg LV V1 max P.8 mmHg TR max adrian: 229.0 cm/sec TR max P.0 mmHg Interpretation Summary The estimated ejection fraction is 65 %. Stage 1 diastolic dysfunction. Trivial tricuspid valve insufficiency. Right ventricular systolic pressure estimated to be 26 mmHg. There is no comparison study available. Ordering Physician: Maximino Wong Referring Physician: Hilda Hatch Performed By: Angelia Marx RDCS, RVT
== END | disposition home or self-care (01) ==
LOC: CVS 13:56
PROVIDERS: PCP Internal Medicine; Referring Provider Internal Medicine Cardiovascular Disease; Visit Provider Internal Medicine Cardiovascular Disease
DX: R07.89 Other chest pain (principal); I16.0 Hypertensive urgency; R00.2 Palpitations; E78.00 Pure hypercholesterolemia, unspecified
CPT/HCPCS: 36415; 80061; 80076; 93306

== ENCOUNTER → 2019-09-03 | Outpatient (CLI) | payer BC, SELFPAY ==
[2019-07-28 09:59] VITALS: BMI 26.9
--- NOTE | 2019-09-04 09:53 | STRESSREP ---
Stress Test Report Treadmill EKG report: Resting EKG showed normal sinus rhythm, normal axis, normal intervals, no evidence of previous myocardial infarction. Treadmill EKG: The patient exercised according to Emery protocol for 9 minutes and 0 seconds achieving a maximum workload of 10.10 METS. Resting heart rate was initially 65 beats a minute and mikel to a max of 162 bpm which represents 97% of the maximal age-predicted heart rate. Resting blood pressure was 158/96 and mikel to a maximum of 230/80. Test terminated due to attainment of target heart rate. During exercisePatient's heart rate increased as expected. The patient had subtle upsloping ST segment depression along the inferior lateral leads which did not reach criteria for ischemia. These changes quickly resolved by 50 seconds into recovery. No arrhythmias noted. Conclusions:Normal, adequate, treadmill EKG. Negative for ischemia by EKG criteria. No anginal symptoms noted. No arrhythmias noted. Hypertensive blood pressure response to exercise. Average exercise capacity for age. Patient tolerate procedure well. No complications.
== END | disposition home or self-care (01) ==
PROVIDERS: PCP Internal Medicine; Referring Provider Internal Medicine Cardiovascular Disease; Visit Provider Internal Medicine Cardiovascular Disease
DX: R00.2 Palpitations (principal); I10 Essential (primary) hypertension
CPT/HCPCS: 93017

== ENCOUNTER 2020-12-12 11:58 | Emergency (ER) | payer BC, SELFPAY ==
[2020-12-12 11:58] VITALS: BP 143/96; PULSE 112; RESP 16; TEMP 37; O2SAT 96; BMI 27.5
[2020-12-12 13:21] VITALS: O2SAT 94
[2020-12-12 13:24] VITALS: BP 177/98; PULSE 99; RESP 16; O2SAT 95
--- NOTE | 2020-12-12 13:26 | EX.ED.DYSGE1 ---
HPI History of Present Illness Chief Complaint: General Illness Informant: patient Narrative Narrative: Presents with persistent nausea and vomiting unable to keep things down. Home Covid testing + November 28 had symptoms 4 days prior to that, currently more than 2 weeks out. States started with her seasonal allergy symptoms with congestion cough. However they have new symptoms of on testing today. Headache and diarrhea Last week lost taste and smell. Coughing improving. Diarrhea improving. However states nausea have vomiting with p.o. intake. Urine more concentrated. No dysuria. History of hypertension. [facility] Medical History (Updated 12/12/20 @ 15:[address] Ramon Frederick DO) Chest pressure Dizziness Essential hypertension History of kidney stones Hypertensive urgency Palpitations Home Medications Bifidobacterium infantis 4 mg capsule 4 mg PO DAILY 07/28/19 [History Last Taken Unknown] omeprazole 20 mg capsule,delayed release 20 mg PO DAILY PRN cap 03/10/20 [History Last Taken Unknown] metoprolol tartrate 50 mg tablet 50 mg PO .COMPLEX tab 09/29/20 [History Last Taken Unknown] ondansetron 4 mg PO Q6H PRN #10 tab 12/12/20 [Rx Last Taken Unknown] Allergy/AdvReac Type Severity Reaction Status Date / Time nitrofurantoin Allergy Rash Verified 09/29/20 10:07 [From Macrobid] nitrofurantoin Allergy Rash Verified 09/29/20 10:07 macrocrystalline [From Macrobid] phenazopyridine Allergy Rash Verified 09/29/20 10:07 [From Pyridium] amlodipine AdvReac Intermediate dizziness Verified 09/29/20 13:19 hydrochlorothiazide AdvReac Intermediate Leg Cramps Verified 09/30/20 11:21 acetaminophen AdvReac Other Verified 09/29/20 10:07 [From Darvocet-N] bupropion HCl AdvReac Nausea Verified 09/29/20 10:07 [From Wellbutrin] propoxyphene napsylate AdvReac Other Verified 09/29/20 10:07 [From Darvocet-N] Surgical History History of cholecystectomy Social History Smoking Status: Former smoker ROS ROS ED Constitutional Constitutional ED: Denies chills, fever(s) or sweats Eyes Eyes: Denies change in vision ENT ENT ED: Denies dysphagia or sore throat Cardiovascular Cardiovascular: Denies chest pain, leg edema, palpitations or racing heartbeat Respiratory/Chest Respiratory/Chest: Denies cough, dyspnea or dyspnea on exertion Gastrointestinal Gastrointestinal: Reports diarrhea, nausea and vomiting; Denies abdominal pain Genitourinary Genitourinary ED: Denies dysuria, hematuria or urinary frequency Musculoskeletal Musculoskeletal: Denies back pain, extremity pain or neck pain Integumentary Denies rash or wounds Neurologic Neurologic: Reports headache(s); Denies paresthesias or weakness EXAM Physical Exam Const Vital Signs: 12/12/20 11:58 12/12/20 13:21 12/12/20 13:24 Temperature 98.6 F Temperature Source Temporal Pulse Rate 112 H 99 Respiratory Rate 16 16 Respiratory Effort Normal Non-Labored Respiratory Depth Normal Respiratory Pattern Normal Blood Pressure 143/96 H 177/98 H Blood Pressure Mean 111 124 Pulse Ox 96 95 Oxygen Delivery Method Room Air Room Air Room Air 12/12/20 14:42 Temperature Temperature Source Pulse Rate 85 Respiratory Rate 17 Respiratory Effort Respiratory Depth Respiratory Pattern Blood Pressure 151/86 H Blood Pressure Mean 107 Pulse Ox 91 Oxygen Delivery Method Room Air Positive well nourished and well developed General Appearance ED: well developed and NAD HEENT Reports dry mucous membranes normocephalic and atraumatic Mouth ED: Yes dry mucous membranes Mouth: dry mucous membranes Eyes PERRL, EOMs intact bilaterally and conjunctivae normal General Eye ED: Yes normal appearance of both eyes Neck no lymphadenopathy and supple General: Negative for tenderness Chest Wall Chest: Negative for tenderness Resp normal respiratory effort and normal air movement Effort and Inspection: symmetric chest movement; Negative for respiratory distress Cardio regular rhythm and no murmurs Rate: tachycardic Peripheral Pulses: pulses 2+ throughout GI normal to inspection, nondistended, normoactive bowel sounds and non-tender Palpation: Negative for guarding or rebound tenderness present Back/Spine no CVA tenderness and no thoracic nor lumbar tenderness Extremity normal to inspection General Extremety ED: Negative for edema or tenderness General Extremity: Negative for edema Neuro oriented x3 and no sensory deficits noted Sensorium / Orientation: awake and alert Skin no rashes or lesions noted and no wounds MDM MDM MDM Narrative Medical decision making narrative: Patient dry mucosal membranes tachycardic on exam. She is recovering from Covid symptoms diarrhea has improved per patient. Currently nausea and vomiting. She is given IV fluids Zofran through the IV. Laboratory studies are normal including sodium levels. Heart rate improved with fluids. She is tolerating oral intake. Discharge with outpatient follow-up and a prescription for Zofran. Discussed continue oral hydration. All questions were answered. Lab Data Attestation: I reviewed the patient's lab results. Labs: Laboratory Results - last 24 hr 12/12/20 12/12/20 12:40 12:40 WBC 6.5 RBC 4.76 Hgb 13.6 Hct 42.3 MCV 88.9 MCH 28.6 MCHC 32.2 RDW Std Deviation 40.2 RDW Coeff of Rebecca 12.3 Plt Count 268 MPV 9.4 Immature Gran % (Auto) 0.300 Neut % (Auto) 78.6 H Lymph % (Auto) 10.4 L Rice % (Auto) 10.0 Eos % (Auto) 0.5 Baso % (Auto) 0.2 Absolute Neuts (auto) 5.1 Absolute Lymphs (auto) 0.67 L Nucleated RBC % 0 Sodium 137 Potassium 3.8 Chloride 103 Carbon Dioxide 26.0 Anion Gap 8 BUN 15 Creatinine 0.74 Estim Creat Clear Calc 78.20 Est GFR (MDRD) Af Amer 105 Est GFR (MDRD) Non-Af 87 BUN/Creatinine Ratio 20.3 H Glucose 128 H Calcium 9.4 Discharge Plan Triage Chief Complaint: General Illness ED Provider: Ramon Frederick Dx/Rx/DC Orders Clinical Impression: Nausea & vomiting, COVID-19 Instructions: Coronavirus Disease 2019 (COVID-19): Caring for Yourself or Others, ED Vomiting (Adult) Prescriptions: New ondansetron 4 mg tablet,disintegrating 4 mg PO Q6H PRN (Reason: nausea and vomiting) Qty: 10 RF: 0 No Action Align 4 mg capsule 4 mg PO DAILY RF: 0 omeprazole 20 mg capsule,delayed release(DR/EC) 20 mg PO DAILY PRNRF: 0 metoprolol tartrate 50 mg tablet 50 mg PO .COMPLEX RF: 0 Primary Care Provider: Hilda Hatch Referrals: Hilda Hatch MD [Primary Care Provider] - 3-5 Days Disposition Disposition: Home, Self Care
[2020-12-12 13:37] LABS: Absolute Lymphocyte Count 0.67 X10^3/uL (0.83-4.51); Absolute Neutrophil Count 5.1 X10^3/uL (2.0-7.7); Basophil# 0.01 X10^3/uL; Basophil% 0.2 % (0-1); Eosinophil# 0.03 X10^3/uL; Eosinophils% 0.5 % (0-5); Hematocrit 42.3 % (37-47); Hemoglobin 13.6 g/dL (12.0-15.0); Lymphocyte # 0.67 X10^3/ul (0.83-4.51); Lymphocyte % 10.4 % (19-41); Mean Corp Hgb Conc 32.2 g/dL (32-36); Mean Corpuscular Hgb 28.6 pg (27.0-32.0); Mean Corpuscular Volume 88.9 fL (81-99); Mean Platelet Vol. 9.4 fl (6.2-12.0); Monocyte# 0.65 X10^3/uL; NRBC Flagged by Analyzer 0 % (0-5); Neutrophil # 5.09 X10^3/uL (2.7-7.7); Neutrophil % 78.6 % (47-70); Platelet Count 268 K/mm3 (150-450); RBC Distribution Width CV 12.3 % (11.6-14.6); RBC Distribution Width SD 40.2 fl (35.1-43.9); Red Blood Count 4.76 M/mm3 (4.2-5.4); White Blood Count 6.5 K/mm3 (4.4-11.0)
[2020-12-12] MEDS: Ondansetron 4 MG/2 ML Vial IV (13:40)
[2020-12-12] MEDS: 0.9% Normal Saline 1,000 ML 1000 ML IV (13:40)
[2020-12-12 13:45] LABS: Anion Gap 8 (5-15); BUN 15 mg/dL (7-18); BUN/Creat Ratio 20.3 RATIO (10-20); Calcium,Total 9.4 mg/dL (8.5-10.1); Chloride 103 mmol/L (98-107); Creatinine, Serum 0.74 mg/dL (0.55-1.02); EST Glomerular Filtration Rate 87 mL/min (>60); Est Glom Filt Rate - Afr Amer 105 mL/min (>60); Glucose 128 mg/dL (74-106); Potassium 3.8 mmol/L (3.5-5.1); Sodium Level 137 mmol/L (136-145)
[2020-12-12 14:42] VITALS: BP 151/86; PULSE 85; RESP 17; O2SAT 91
[2020-12-12 16:05] VITALS: BP 138/72; PULSE 84; RESP 16; O2SAT 98
== END 2020-12-12 16:10 | disposition home or self-care (01) ==
PROVIDERS: Emergency Provider Emergency Medicine; PCP Internal Medicine
DX: U07.1 COVID-19 (principal); R11.2 Nausea with vomiting, unspecified; I10 Essential (primary) hypertension; Z79.899 Other long term (current) drug therapy; Z87.891 Personal history of nicotine dependence
CPT/HCPCS: 80048; 85025; 96361; 96374; 99285; J7030; J2405

== ENCOUNTER 2021-11-14 14:08 | Observation (INO) | payer BC, SELFPAY ==
[2021-11-14] VITALS (14 sets, daily range): BP systolic 162–230; BP diastolic 65–101; PULSE 64–84; RESP 12–18; TEMP 36.5–37.1; O2SAT 95–100; BMI 31.4; BMI 29.2
--- NOTE | 2021-11-14 14:16 | ED.RN ---
PT PRESENTS IN TRIAGE WITH RIGHT SIDED FACIAL N/T AND DOUBLE VISION IN BOTH EYES BP 223/99, DR GONZALEZ MADE AWARE AND STROKE ALERT CALLED AT 1410. PT TAKEN TO CT SCAN BY CHARGE NURSE LILIANA. PRIMARY NURSE VALDEMAR MADE AWARE.
--- NOTE | 2021-11-14 14:18 | CT_ITS ---
STUDY: CT HEAD STROKE PROTOCOL W/O CONTRAST INJECTION REASON FOR EXAM: Female, 56 years old. STROKE SYMPTOMS RADIATION DOSAGE (If Supplied By Facility): CTDIvol = ( 44.99 ) mGy, DLP = ( 779.24 ) mGycm TECHNIQUE: Transaxial CT imaging of the brain was performed without administration of intravenous contrast material. Individualized dose optimization techniques were used for this CT. COMPARISON: No relevant priors. FINDINGS: Normal soft tissue structures. Normal calvarium. Normal size ventricles and extra-axial spaces for the patient''s age. Normal white matter tracts of the cerebral hemispheres. Normal basal ganglia and thalami. Normal brainstem. Normal cerebellum. There is no intracranial hemorrhage. There are no findings of an acute ischemic infarction. There is a 1.4 cm polyp or retention cyst along the anterior inferior aspect of the right maxillary sinus. ASPECT score: 10 CT/STROKE Brain/Head without Cont IMPRESSION: Normal unenhanced CT scan of the brain. N.B. : The above Results were Read Back by Geovany Verma MD to Dr nas MD, and understanding confirmed on 11/14/2021 14:28:28 (ET). Electronically Signed: Geovany Verma MD at 14:29 EDT ,
--- NOTE | 2021-11-14 14:24 | EKG12_ITS ---
Test Reason : STROKE Blood Pressure : / mmHG Vent. Rate : 077 BPM Atrial Rate : 077 BPM P-R Int : 132 ms QRS Dur : 084 ms QT Int : 396 ms P-R-T Axes : 057 018 073 degrees QTc Int : 448 ms Normal sinus rhythm Nonspecific T wave abnormality Abnormal ECG Confirmed by LYNSEY GONZALES, MARISA ([id number]), art editor HUONG CEDILLO ([id number]) on 11/17/2021 1:58:20 PM Referred By: Confirmed By:MARISA MENON MD
--- NOTE | 2021-11-14 14:30 | CM.ED ---
SW Note RAMSES met with patient's , Abdulkadir. He gave verbal consent to speak to him in the waiting room in the ED but this personal lines underwriter had offered to speak to him in a private room but he declined. Abdulkadir said that his complained of her symptoms this morning after eating cereal and he thought it was in regards to an allergic reaction. SW provided emotional support. Abdulkadir said that the room was cramped so he left to give the staff space. SW remains available if needs arise. Eva AVINA
--- NOTE | 2021-11-14 14:31 | CT_ITS ---
STUDY: CTA HEAD AND NECK WITH CONTRAST REASON FOR EXAM: Female, 56 years old. Neuro deficit, acute, stroke suspected RADIATION DOSAGE (If Supplied By Facility): CTDIvol = ( 16.99 ) mGy, DLP = ( 627.41 ) mGycm TECHNIQUE: CT angiography was performed with a multi-detector CT scanner. Data acquisition was obtained from the skull base through the vertex following intravenous administration of IV 100mL [id number]-370. MIP images were reconstructed from the axial data set. Post-processing of the angiographic images was performed, with multiplanar reformation and 3D reconstruction. Individualized dose optimization techniques were used for this CT. COMPARISON: No relevant priors. FINDINGS: Normal bilateral petrous carotid arteries. There is calcified plaque formation of the right cavernous carotid artery, without a cross-sectional luminal stenosis. There is calcified plaque formation of the left cavernous carotid artery, without a cross-sectional luminal stenosis. Normal right A1 segments of the anterior cerebral artery. Normal left A1 segments of the anterior cerebral artery. Normal intact anterior communicating artery (ACOM). Normal bilateral A2 segments of the anterior cerebral arteries. Normal right M1 and M2 segments of the middle cerebral arteries, with a normal M1 bifurcation. Normal left M1 and M2 segments of the middle cerebral arteries, with a normal M1 bifurcation. Normal right posterior communicating artery (PCOM). Normal left posterior communicating artery (PCOM). Normal bilateral vertebral arteries. Normal basilar artery with a normal basilar bifurcation. The visualized bilateral superior cerebellar (SCA) arteries are normal. Normal bilateral P1, P2 and visualized P3 segments of the posterior cerebral arteries. There is no demonstrated aneurysm of the pilot point of [place]. There is no demonstrated abnormality of the visualized brain. AORTIC ARCH: There is atherosclerotic calcific plaque formation of the aortic arch and great vessels arising from the aortic arch, without a hemodynamically significant stenosis. There is a normal origin of the brachiocephalic, left common carotid, and left subclavian arteries. Atherosclerotic plaque formation at the origin of the left subclavian artery. RIGHT CAROTID ARTERIES: Normal right common carotid artery (CCA). Normal right common carotid bulb. Normal origin of the right internal carotid (ICA) artery without a hemodynamically significant stenosis. Normal visualized cervical portion of the right internal carotid artery. Normal origin of the right external carotid artery (ECA). LEFT CAROTID ARTERIES: Normal left common carotid artery (CCA). Normal left common carotid bulb. Normal origin of the left internal carotid (ICA) artery without a hemodynamically significant stenosis. Normal visualized cervical portion of the left internal carotid artery. Normal origin of the left external carotid artery (ECA). VERTEBRAL ARTERIES: Normal bilateral vertebral arteries. CT/STROKE CTA Head AND Neck W/Con IMPRESSION: No significant abnormality is seen. N.B. : The above Results were Read Back by Geovany Verma MD to Bernardo Jackson and understanding confirmed on 11/14/2021 15:32:54 (ET). Electronically Signed: Geovany Verma MD at 15:34 EDT ,
--- NOTE | 2021-11-14 14:37 | EDS_ITS ---
HPI History of Present Illness Chief Complaint: Neuro S/Sx Informant: patient Onset/Context/Timing Onset: Today Context: Gradual Onset Timing: Continuous Onset: 45 minutes prior to arrival Worsened by: Nothing Relieved by: Nothing Associated Symptoms Associated Symptoms: Negative for Headache, Nausea, Vomiting or Chest Pain Narrative Narrative: Patient presents with diplopia and right mouth and tongue paresthesias that began approximately 45 minutes prior to arrival. Patient states it came on gradually. Patient denies any difficulty speaking. Patient denies any chest pain or shortness of breath. Patient denies any headache. Patient states that when she looks with her right eyes she can see normally, when she looks with her left eye she can see normally, but when she looks with both eyes, she sees 2 images that are [id number]. Patient denies any trauma or injury. [facility] Medical History Anxiety Carpal tunnel syndrome, right Chest pressure Depression Diverticulosis Dizziness Essential hypertension Gastritis GERD (gastroesophageal reflux disease) History of kidney stones HTN (hypertension) Hypertensive urgency Kidney stone Nausea & vomiting Palpitations Home Medications Bifidobacterium infantis 4 mg capsule (Align) 4 mg PO DAILY 07/28/19 [History Last Taken Unknown] omeprazole 20 mg capsule,delayed release 20 mg PO DAILY PRN Acid Reflux 03/10/20 [History Last Taken Unknown] metoprolol tartrate 50 mg tablet 50 mg PO .COMPLEX Blood pressure 09/29/20 [History Last Taken Unknown] sucralfate 1 gram tablet 1 g PO BID PRN PRN Acid Reflux 11/09/21 [History Last Taken Unknown] Allergy/AdvReac Type Severity Reaction Status Date / Time nitrofurantoin Allergy Rash Verified 11/14/21 14:45 [From Macrobid] nitrofurantoin Allergy Rash Verified 11/14/21 14:45 macrocrystalline [From Macrobid] phenazopyridine Allergy Rash Verified 11/14/21 14:45 [From Pyridium] amlodipine AdvReac Intermediate dizziness Verified 11/14/21 14:45 hydrochlorothiazide AdvReac Intermediate Leg Cramps Verified 11/14/21 14:45 lisinopril AdvReac Mild Headache Verified 11/14/21 14:45 acetaminophen AdvReac Other Verified 11/14/21 14:45 [From Darvocet-N] bupropion HCl AdvReac Nausea Verified 11/14/21 14:45 [From Wellbutrin] propoxyphene napsylate AdvReac Other Verified 11/14/21 14:45 [From Darvocet-N] Family History Mother Hypertension Osteoporosis Glaucoma Father Cancer basal cell and melonoma Hypertension Gout Brother Cancer Lymphoma Sister Cancer Uterine cancer Surgical History History of cholecystectomy History of microdiscectomy (~01/2002) Social History Smoking Status: Former smoker how long ago did patient quit smokin alcohol intake: current alcohol intake frequency: holidays/special occasions only substance use type: does not use caffeine: Yes (Occasionally) ROS ROS ED Constitutional Constitutional ED: Denies chills or fever(s) Eyes Eyes: Reports change in vision and diplopia ENT ENT ED: Denies rhinorrhea or sore throat Cardiovascular Cardiovascular: Denies chest pain or palpitations Respiratory/Chest Respiratory/Chest: Denies cough or dyspnea Gastrointestinal Gastrointestinal: Denies nausea or vomiting Genitourinary Genitourinary ED: Denies dysuria or hematuria Musculoskeletal Musculoskeletal: Denies back pain or neck pain Integumentary Denies abscess or rash Neurologic Neurologic: Denies headache(s) or weakness Allergic/Immunologic Allergic/Immunologic ED: Denies mouth swelling or urticaria EXAM Physical Exam Const Vital Signs: 11/14/21 14:14 11/14/21 14:18 11/14/21 14:30 Temperature 97.7 F L Temperature Source Temporal Pulse Rate 72 81 84 Respiratory Rate 18 16 15 Blood Pressure 223/99 H 230/101 H 184/99 H Blood Pressure Mean 140 144 127 Pulse Ox 100 100 100 Oxygen Delivery Method Room Air Room Air Room Air 11/14/21 14:45 11/14/21 14:53 11/14/21 15:19 Temperature Temperature Source Pulse Rate 76 72 Respiratory Rate 15 16 Blood Pressure 181/92 H Blood Pressure Mean 121 Pulse Ox 98 100 Oxygen Delivery Method Room Air Room Air Room Air 11/14/21 15:19 11/14/21 15:30 11/14/21 16:00 Temperature Temperature Source Pulse Rate 81 71 74 Respiratory Rate 16 18 12 Blood Pressure 181/92 H 174/81 H 176/85 H Blood Pressure Mean 121 112 115 Pulse Ox 98 95 95 Oxygen Delivery Method Room Air Room Air Room Air 11/14/21 16:05 Temperature Temperature Source Pulse Rate 78 Respiratory Rate 18 Blood Pressure 176/65 H Blood Pressure Mean 102 Pulse Ox 97 Oxygen Delivery Method Room Air Positive well nourished and well developed General Appearance ED: well developed and NAD HEENT Reports moist mucous membranes Neck supple and no JVD Resp normal respiratory effort and clear to auscultation bilaterally Cardio regular rate, regular rhythm and no murmurs GI normal to inspection, nondistended, normoactive bowel sounds, soft to palpation and non-tender Palpation: soft Extremity normal to inspection General Extremety ED: Negative for edema or tenderness General Extremity: Negative for edema Neuro oriented x3, CN's II-XII intact bilaterally and no sensory deficits noted Lesa Coma Scale: document GCS findings Spontaneous Obeys Commands Oriented 15 Sensorium / Orientation: alert Speech: speech normal Motor Exam: strength 5/5 throughout Psych mental status grossly normal Skin no rashes or lesions noted STROKE Vital Signs/Narrative: Vital Signs Temp Pulse Resp BP Pulse Ox O2 Del Method 11/14/21 16:05 78 18 176/65 H 97 Room Air 11/14/21 16:00 74 12 176/85 H 95 Room Air 11/14/21 15:30 71 18 174/81 H 95 Room Air 11/14/21 15:19 81 16 181/92 H 98 Room Air 11/14/21 15:19 72 16 181/92 H 100 Room Air 11/14/21 14:53 76 15 98 Room Air 11/14/21 14:45 Room Air 11/14/21 14:30 84 15 184/99 H 100 Room Air 11/14/21 14:18 81 16 230/101 H 100 Room Air 11/14/21 14:14 97.7 F L 72 18 223/99 H 100 Room Air Inital Vital Signs reviewed: Yes NIHSS Initial: 1a Level of Consciousness: 0 1b LOC Questions (Score 2 if aphasic/stupor): 0 1c LOC Commands (Only score 1st attempt): 0 2 Best Gaze (If aphasic, use reflexive mvmts.): 0 3 Visual: 1 4 Facial Palsy: 0 5 Motor Arm Right (UN = amputation/fusion): 0 5 Motor Arm Left: 0 6 Motor Leg Right: 0 6 Motor Leg Left: 0 7 Limb ataxia (Only + if out of proportion): 0 8 Sensory (Aphasia/stupor=0 or 1, coma=2): 0 9 Best Language: 0 10 Dysarthria (mute, coma=2, intubated=UN): 0 11 Extinction and Inattention (only scored if +): 0 Total Score: 1 MDM MDM MDM Narrative Medical decision making narrative: CT scan of the brain was obtained. There is no acute intracranial abnormality. This was interpreted by the radiologist and reviewed by myself. CBC was within normal limits. PT with INR and PTT were within normal limits. High-sensitivity troponin was normal. Basic metabolic profile showed a slightly elevated glucose of 160 but was otherwise within normal limits. CTA of the head neck was obtained. There is no significant abnormality noted. This was interpreted by the radiologist and reviewed by myself. Portable 1 view chest x-ray was obtained. On my interpretation, lung philip are clear. There is normal cardiac silhouette. Bony thorax is normal. There is no acute process noted. Radiologist also interpreted the x-ray and agrees. Patient was given 2 doses of labetalol. Patient's blood pressure improved to 176/85. Case was discussed with the hospitalist. She will admit the patient for observation. Patient understood and was agreeable with the plan. All questions were answered. Lab Data Attestation: I reviewed the patient's lab results. Labs: Laboratory Results - last 24 hr 11/14/21 11/14/21 11/14/21 14:22 14:22 14:22 WBC 6.9 RBC 5.19 Hgb 14.9 Hct 45.9 MCV 88.4 MCH 28.7 MCHC 32.5 RDW Std Deviation 40.4 RDW Coeff of Rebecca 12.3 Plt Count 242 MPV 9.7 Immature Gran % (Auto) 0.400 Neut % (Auto) 60.4 Lymph % (Auto) 29.8 [place] % (Auto) 5.8 Eos % (Auto) 3.3 Baso % (Auto) 0.3 Absolute Neuts (auto) 4.2 Absolute Lymphs (auto) 2.06 Nucleated RBC % 0 PT 12.2 INR 0.9 APTT 30.2 Sodium 138 Potassium 3.8 Chloride 104 Carbon Dioxide 31.0 Anion Gap 3 L BUN 18 Creatinine 1.02 Estim Creat Clear Calc 56.08 Est GFR (MDRD) Af Amer 72 Est GFR (MDRD) Non-Af 60 BUN/Creatinine Ratio 17.6 Glucose 160 H Calcium 9.9 Troponin I High Sens 4 POC Glucose 11/14/21 14:24 WBC RBC Hgb Hct MCV MCH MCHC RDW Std Deviation RDW Coeff of Rebecca Plt Count MPV Immature Gran % (Auto) Neut % (Auto) Lymph % (Auto) [place] % (Auto) Eos % (Auto) Baso % (Auto) Absolute Neuts (auto) Absolute Lymphs (auto) Nucleated RBC % PT INR APTT Sodium Potassium Chloride Carbon Dioxide Anion Gap BUN Creatinine Estim Creat Clear Calc Est GFR (MDRD) Af Amer Est GFR (MDRD) Non-Af BUN/Creatinine Ratio Glucose Calcium Troponin I High Sens POC Glucose 139 H Radiography Diagnostic Testing: Clinical Impression(s) from Imaging Studies Brain CT 11/14/21 14:18 IMPRESSION: Normal unenhanced CT scan of the brain. N.B. : The above Results were Read Back by Geovany Verma MD to Dr nas MD, and understanding confirmed on 11/14/2021 14:28:28 (ET). Electronically Signed: Geovany Verma MD at 14:29 EDT , ADDENDUM: 11/14/21 1436 IMPRESSION: Normal unenhanced CT scan of the brain. N.B. : The above Results were Read Back by Geovany Verma MD to Dr nas MD, and understanding confirmed on 11/14/2021 14:28:28 (ET). Electronically Signed: Geovany Verma MD at 14:29 EDT , Head/Neck CTA 11/14/21 14:31 IMPRESSION: No significant abnormality is seen. N.B. : The above Results were Read Back by Geovany Verma MD to Bernardo Jackson and understanding confirmed on 11/14/2021 15:32:54 (ET). Electronically Signed: Geovany Verma MD at 15:34 EDT , ADDENDUM: 11/14/21 1540 IMPRESSION: No significant abnormality is seen. N.B. : The above Results were Read Back by Geovany Verma MD to Bernardo Jackson and understanding confirmed on 11/14/2021 15:32:54 (ET). Electronically Signed: Geovany Verma MD at 15:34 EDT , Chest X-Ray 11/14/21 14:48 IMPRESSION: The lungs are clear. Electronically Signed: Geovany Verma MD at 15:02 EDT , EKG Initial EKG: Interpretation: Sinus Rhythm (77) and Non-Specific ST Changes Prior EKG tracings: available for review Prior: Unchanged (06/29/2017) Discharge Plan Dx/Rx/DC Orders Clinical Impression: Diplopia, Essential hypertension, Facial paresthesia Disposition Disposition: Acute Care Hospital [facility]
[2021-11-14 14:46] LABS: Bedside Glucose 139 mg/dL (74-106)
[2021-11-14] MEDS: Labetalol (Prefilled) 20 MG/4 ML IV (14:47)
--- NOTE | 2021-11-14 14:48 | RAD_ITS ---
STUDY: X-RAY CHEST REASON FOR EXAM: Female, 56 years old. Neuro deficit, acute, stroke suspected TECHNIQUE: Single AP portable view of the chest. COMPARISON: Comparison is made with prior study dated 06/29/2017. FINDINGS: EKG electrodes are seen. The lungs are clear and expanded. There is no demonstrated pleural abnormality. Normal size heart. Normal mediastinum and jeff. Normal visualized pulmonary arteries. Normal visualized aortic arch and descending thoracic aorta. There are diffuse degenerative changes of the visualized thoracic spine. Normal visualized ribs, clavicles, and shoulders. There is no demonstrated abnormality of the visualized soft tissue structures of the upper abdomen. RAD/Chest 1 View IMPRESSION: The lungs are clear. Electronically Signed: Geovany Verma MD at 15:02 EDT ,
[2021-11-14 14:57] LABS: Absolute Lymphocyte Count 2.06 X10^3/uL (0.83-4.51); Absolute Neutrophil Count 4.2 X10^3/uL (2.0-7.7); Basophil# 0.02 X10^3/uL; Basophil% 0.3 % (0-1); Eosinophil# 0.23 X10^3/uL; Eosinophils% 3.3 % (0-5); Hematocrit 45.9 % (37-47); Hemoglobin 14.9 g/dL (12.0-15.0); Lymphocyte # 2.06 X10^3/ul (0.83-4.51); Lymphocyte % 29.8 % (19-41); Mean Corp Hgb Conc 32.5 g/dL (32-36); Mean Corpuscular Hgb 28.7 pg (27.0-32.0); Mean Corpuscular Volume 88.4 fL (81-99); Mean Platelet Vol. 9.7 fl (6.2-12.0); Monocyte% 5.8 % (0-10); NRBC Flagged by Analyzer 0 % (0-5); Neutrophil # 4.17 X10^3/uL (2.7-7.7); Neutrophil % 60.4 % (47-70); Platelet Count 242 K/mm3 (150-450); RBC Distribution Width CV 12.3 % (11.6-14.6); RBC Distribution Width SD 40.4 fl (35.1-43.9); Red Blood Count 5.19 M/mm3 (4.2-5.4); White Blood Count 6.9 K/mm3 (4.4-11.0)
[2021-11-14 15:04] LABS: Anion Gap 3 (5-15); BUN 18 mg/dL (7-18); BUN/Creat Ratio 17.6 RATIO (10-20); Calcium,Total 9.9 mg/dL (8.5-10.1); Chloride 104 mmol/L (98-107); Creatinine, Serum 1.02 mg/dL (0.55-1.02); EST Glomerular Filtration Rate 60 mL/min (>60); Est Glom Filt Rate - Afr Amer 72 mL/min (>60); Estimated Creatinine Clearance 56.08 ml/min; Glucose 160 mg/dL (74-106); International Normalized Ratio 0.9; Potassium 3.8 mmol/L (3.5-5.1); Prothrombin Time (Protime)PT. 12.2 SECONDS (11.7-14.9); Sodium Level 138 mmol/L (136-145); Troponin-I HS 4 pg/mL (3.0-54.0)
[2021-11-14 15:11] LABS: Partial Thromboplast Time 30.2 Seconds (24.1-36.2)
[2021-11-14] MEDS: Aspirin 325 MG Tablet PO (15:24)
[2021-11-14 16:37] LABS: Magnesium 2.2 mg/dL (1.6-2.6)
[2021-11-14] MEDS: 0.9% Normal Saline 1,000 ML 100 ML IV (18:29)
--- NOTE | 2021-11-14 20:36 | HP.PCM.HOS_ITS ---
HPI - General General Date of Admission: 11/14/21 Date of Service: 11/14/21 Chief Complaint: Right facial paresthesias, double vision. HPI Narrative The patient is a 56 y/o F w/ PMHx: Former tobacco use, Overweight, Anxiety and Depression under recent increased stress per her report, HTN, GERD who presents to the [facility] ED on 11/14/21 with history of onset at approximately 1:45 PM while attempting to eat cereal right-sided facial paresthesias with decreased sensation especially around the perioral region in addition to significant onset blurred and double vision primarily when she turns her head to the right noted to be in both eyes but does correct if she closes either the right or the left but is persistent if she has both eyes open with associated nausea and fatigue not resolving prompting eventual ED evaluation. Given patient presentation stroke alert was called and neurology was involved however given her low scoring deferred any tPA consideration and did note it certainly could be stroke versus hypertensive emergency and recommended further stroke evaluation and admission. In the ED NIH stroke scale was scored as 1. Work-up in the ED included T97.7, heart rate 72, BP initially 223/99 with most recent repeat at admission approximate 181/92, respiratory rate 18, 100% on room air, CBC with WC 6.9, hemoglobin 14.9, platelet 242 without marked shift, unremarkable coags, BMP with glucose 160 otherwise unremarkable troponin 4, EKG with sinus rhythm with no acute evidence of ischemia, chest x-ray with no acute cardiopulmonary findings, CT of the brain with no acute intracranial findings, CTA head and neck with no acute abnormalities demonstrated. In the ED patient ministered full-strength aspirin 325 mg p.o. x1. [facility] Medical History (Updated 11/14/21 @ 20:[address] Tanika Dick MD) Anxiety Carpal tunnel syndrome, right Depression Diverticulosis Essential hypertension Former tobacco use GERD (gastroesophageal reflux disease) History of kidney stones HTN (hypertension) Home Medications Bifidobacterium infantis 4 mg capsule (Align) 4 mg PO DAILY 07/28/19 [History Last Taken 11/13/21] omeprazole 20 mg capsule,delayed release 20 mg PO DAILY PRN Acid Reflux 03/10/20 [History Last Taken 11/13/21] metoprolol tartrate 50 mg tablet 75 mg PO QHS Blood pressure 09/29/20 [History Last Taken 11/13/21] sucralfate 1 gram tablet 1 g PO BID PRN PRN Acid Reflux 11/09/21 [History Last Taken 11/11/21] metoprolol tartrate 50 mg tablet 50 mg PO DAILY heart 11/14/21 [History Last Taken 11/13/21] Allergy/AdvReac Type Severity Reaction Status Date / Time nitrofurantoin Allergy Rash Verified 11/14/21 14:45 [From Macrobid] nitrofurantoin Allergy Rash Verified 11/14/21 14:45 macrocrystalline [From Macrobid] phenazopyridine Allergy Rash Verified 11/14/21 14:45 [From Pyridium] amlodipine AdvReac Intermediate dizziness Verified 11/14/21 14:45 hydrochlorothiazide AdvReac Intermediate Leg Cramps Verified 11/14/21 14:45 lisinopril AdvReac Mild Headache Verified 11/14/21 14:45 acetaminophen AdvReac Other Verified 11/14/21 14:45 [From Darvocet-N] bupropion HCl AdvReac Nausea Verified 11/14/21 14:45 [From Wellbutrin] propoxyphene napsylate AdvReac Other Verified 11/14/21 14:45 [From Darvocet-N] Family History Mother Hypertension Osteoporosis Glaucoma Father Cancer basal cell and melonoma Hypertension Gout Brother Cancer Lymphoma Sister Cancer Uterine cancer Surgical History History of cholecystectomy History of microdiscectomy (~01/2002) Social History (Updated 11/14/21 @ 20:[address] Tanika Dick MD) household members: spouse Smoking Status: Former smoker how long ago did patient quit smoking: Quit 2002, smoked age 16 until quit, 3-5 cig/day. alcohol intake: current alcohol intake frequency: holidays/special occasions only substance use type: does not use caffeine: Yes (Occasionally) ROS ROS Narrative Admission Review of Systems: CONSTITUTIONAL: No weight loss, fever, chills, + weakness or fatigue. HEENT: + R facial paresthesias, Diplopia when turns head to the right. Eyes: No yellow sclerae. Ears, Nose, Throat: No hearing loss, sneezing, congestion, runny nose or sore throat. SKIN: No rash or itching, lesions, wounds. CARDIOVASCULAR: No chest pain, chest pressure or chest discomfort, palpitations, edema, orthopnea, syncopal events. RESPIRATORY: No shortness of breath, cough or sputum, wheezing, hemoptysis. GASTROINTESTINAL: No anorexia, nausea, vomiting or diarrhea, abdominal pain, melena, BRBPR. GENITOURINARY: No dysuria, frequency, urgency or retention. NEUROLOGICAL: + Double vision, facial paresthesias, No headache, dizziness, syncope, paralysis, ataxia, focal weakness, change in bowel or bladder control, seizure. MUSCULOSKELETAL: + muscle, back pain, joint pain or stiffness. HEMATOLOGIC: No anemia, bleeding or bruising. LYMPHATICS: No enlarged nodes. No history of splenectomy. PSYCHIATRIC: + history of depression or anxiety. ENDOCRINOLOGIC: No reports of sweating, cold or heat intolerance. No polyuria or polydipsia. ALLERGIES: No history of asthma, hives, eczema or rhinitis. Vital Signs Vital Signs Vital Signs: 11/14/21 14:14 11/14/21 14:18 11/14/21 14:30 Temperature 97.7 F L Temperature Source Temporal Pulse Rate 72 81 84 Respiratory Rate 18 16 15 Blood Pressure 223/99 H 230/101 H 184/99 H Blood Pressure Mean 140 144 127 Blood Pressure Source Blood Pressure Position Blood Pressure Location Pulse Ox 100 100 100 Oxygen Delivery Method Room Air Room Air Room Air 11/14/21 14:45 11/14/21 14:53 11/14/21 15:19 Temperature Temperature Source Pulse Rate 76 72 Respiratory Rate 15 16 Blood Pressure 181/92 H Blood Pressure Mean 121 Blood Pressure Source Blood Pressure Position Blood Pressure Location Pulse Ox 98 100 Oxygen Delivery Method Room Air Room Air Room Air 11/14/21 15:19 11/14/21 15:30 11/14/21 16:00 Temperature Temperature Source Pulse Rate 81 71 74 Respiratory Rate 16 18 12 Blood Pressure 181/92 H 174/81 H 176/85 H Blood Pressure Mean 121 112 115 Blood Pressure Source Blood Pressure Position Blood Pressure Location Pulse Ox 98 95 95 Oxygen Delivery Method Room Air Room Air Room Air 11/14/21 16:05 11/14/21 16:15 11/14/21 17:15 Temperature 98.3 F 97.9 F Temperature Source Temporal Temporal Pulse Rate 78 67 64 Respiratory Rate 18 17 16 Blood Pressure 176/65 H 200/91 H 162/89 H Blood Pressure Mean 102 127 113 Blood Pressure Source Monitor Blood Pressure Position Semi-Fowlers Blood Pressure Location Right Arm Pulse Ox 97 97 99 Oxygen Delivery Method Room Air Room Air Room Air 11/14/21 17:46 Temperature Temperature Source Pulse Rate 69 Respiratory Rate Blood Pressure Blood Pressure Mean Blood Pressure Source Blood Pressure Position Blood Pressure Location Pulse Ox Oxygen Delivery Method Weight Weight: 176 lb 2.389 oz Body Mass Index (BMI) 29.2 Physical Exam Narrative Physical Examination: General: Awake, alert, oriented x 3 and cooperative, seated upright in the ED bed, anxious appearing, fatigued. Skin: Normal color, normal turgor, no icterus, no cyanosis. HEENT: AT/NC, EOMI, PERRLA, mildly dry MM, no carotid bruits or JVD noted, if staring forward visual philip intact, if patient does turn her head to the right she does have onset of diplopia, corrects with either right or left eye closure. Lungs: CTA bilaterally, moderate effort, mild decrease BL bases, no rales, ronchi or wheezing. Heart: Currently regular rate and rhythm; no gallop, rub audible. Abdomen: Soft, overweight, NTTP, ND, normal BS, no HSM. Extremities: No cyanosis, clubbing, or edema. Neurological: Patient awake, alert, oriented as noted, cognitive function intact; pupils equally reactive to light and accommodation, cranial nerves grossly intact except for ongoing right-sided facial paresthesias with decreased sensation, onset of double vision with any attempts to turn the head to the right with correction of closes 1 eye, moving all 4 extremities, no focal deficits otherwise besides those noted, strength intact, negative Babinski, [id number] somewhat difficult secondary to difficulties turning head to the right, [id number] appropriate. Psychiatric: Affect appears anxious, fatigued, underlying depression and anxiety history. Results Lab / Micro Data Result Diagrams: 11/14/21 14:22 11/14/21 14:22 Labs: Laboratory Results - last 24 hr 11/14/21 14:22: WBC 6.9, RBC 5.19, Hgb 14.9, Hct 45.9, MCV 88.4, MCH 28.7, MCHC 32.5, RDW Std Deviation 40.4, RDW Coeff of Rebecca 12.3, Plt Count 242, MPV 9.7, Immature Gran % (Auto) 0.400, Neut % (Auto) 60.4, Lymph % (Auto) 29.8, [place] % (Auto) 5.8, Eos % (Auto) 3.3, Baso % (Auto) 0.3, Absolute Neuts (auto) 4.2, Absolute Lymphs (auto) 2.06, Nucleated RBC % 0 11/14/21 14:22: PT 12.2, INR 0.9, APTT 30.2 11/14/21 14:22: Sodium 138, Potassium 3.8, Chloride 104, Carbon Dioxide 31.0, Anion Gap 3 L, BUN 18, Creatinine 1.02, Estim Creat Clear Calc 56.08, Est GFR (MDRD) Af Amer 72, Est GFR (MDRD) Non-Af 60, BUN/Creatinine Ratio 17.6, Glucose 160 H, Calcium 9.9, Troponin I High Sens 4 11/14/21 14:22: Magnesium 2.2 11/14/21 14:24: POC Glucose 139 H Radiology Impression Brain CT 11/14/21 14:18 IMPRESSION: Normal unenhanced CT scan of the brain. N.B. : The above Results were Read Back by Geovany Verma MD to Dr nas MD, and understanding confirmed on 11/14/2021 14:28:28 (ET). Electronically Signed: Geovany Verma MD at 14:29 EDT , ADDENDUM: 11/14/21 1436 IMPRESSION: Normal unenhanced CT scan of the brain. N.B. : The above Results were Read Back by Geovany Verma MD to Dr nas MD, and understanding confirmed on 11/14/2021 14:28:28 (ET). Electronically Signed: Geovany Verma MD at 14:29 EDT , Head/Neck CTA 11/14/21 14:31 IMPRESSION: No significant abnormality is seen. N.B. : The above Results were Read Back by Geovany Verma MD to Bernardo Jackson and understanding confirmed on 11/14/2021 15:32:54 (ET). Electronically Signed: Geovany Verma MD at 15:34 EDT , ADDENDUM: 11/14/21 1540 IMPRESSION: No significant abnormality is seen. N.B. : The above Results were Read Back by Geovany Verma MD to Bernardo Jackson and understanding confirmed on 11/14/2021 15:32:54 (ET). Electronically Signed: Geovany Verma MD at 15:34 EDT , Chest X-Ray 11/14/21 14:48 IMPRESSION: The lungs are clear. Electronically Signed: Geovany Verma MD at 15:02 EDT , Assessment & Plan Assessment/Plan (1) Diplopia: (2) Facial paresthesia: PLAN: Plan The patient is a 56 y/o F w/ PMHx: Former tobacco use, Overweight, Anxiety and Depression under recent increased stress per her report, HTN, GERD who presents to the [facility] ED on 11/14/21 with history of onset at approximately 1:45 PM while attempting to eat cereal right-sided facial paresthesias with decreased sensation especially around the perioral region in addition to significant onset blurred and double vision primarily when she turns her head to the right noted to be in both eyes but does correct if she closes either the right or the left but is persistent if she has both eyes open with associated nausea and fatigue not resolving prompting eventual ED evaluation. #1. Right facial paresthesias and diplopia concerning for CVA versus hyperte nsive emergency: Will admit to the PCU, will obtain MRI Brain, will request ECHO, PT/OT/Speech/Nutrition evaluation per protocol. Will allow permissive HTN pending MRI findings as noted with as needed agents per stroke protocol, maintain on asa, add high-dose statin w/ AM FLP, fall precautions. Magnesium, TSH, FLP, hemoglobin A1c requested. #2. Hyperglycemia: Admission glucose 160, hemoglobin C pending per stroke protocol as noted above. If significant or consistent with diabetes or prediabe apollo will transition to ADA diet with Accu-Cheks with insulin sliding scale. Nutrition is already consulted for education and teaching. #3. Hypertension: We will continue permissive hypertension, add back regimen once appropriate, as needed agents per stroke protocol in the interim. #4. Former tobacco usage: Encourage continued tobacco cessation. #5. Anxiety and depression: Not on any regimen, given discussions would benefit from consideration potentially SSRI and therapy. #6. Overweight: Weight loss and lifestyle changes encouraged. #7. GERD with history of gastritis: We will continue patient home PPI and sucralfate regimen. #8. DVT prophylaxis: SCDs, Lovenox. Charges/Coding Visit Charges Inpatient E&M: 57609 Init Hosp L3
[2021-11-14] MEDS: Atorvastatin Calcium 80 MG Tablet PO (20:51)
[2021-11-15] VITALS (22 sets, daily range): BP systolic 144–222; BP diastolic 69–106; PULSE 55–82; RESP 14–19; TEMP 36.7–37.3; O2SAT 92–100; BMI 29.2
[2021-11-15] MEDS: 0.9% Normal Saline 1,000 ML 100 ML IV ×2 (03:36→15:08)
[2021-11-15 05:44] LABS: Absolute Lymphocyte Count 2.09 X10^3/uL (0.83-4.51); Absolute Neutrophil Count 4.4 X10^3/uL (2.0-7.7); Basophil# 0.02 X10^3/uL; Basophil% 0.3 % (0-1); Eosinophil# 0.15 X10^3/uL; Eosinophils% 2.1 % (0-5); Hematocrit 40.2 % (37-47); Hemoglobin 12.9 g/dL (12.0-15.0); Lymphocyte # 2.09 X10^3/ul (0.83-4.51); Lymphocyte % 29.3 % (19-41); Mean Corp Hgb Conc 32.1 g/dL (32-36); Mean Corpuscular Hgb 28.7 pg (27.0-32.0); Mean Corpuscular Volume 89.5 fL (81-99); Monocyte# 0.43 X10^3/uL; NRBC Flagged by Analyzer 0 % (0-5); Neutrophil # 4.43 X10^3/uL (2.7-7.7); Platelet Count 205 K/mm3 (150-450); RBC Distribution Width CV 12.3 % (11.6-14.6); RBC Distribution Width SD 40.5 fl (35.1-43.9); Red Blood Count 4.49 M/mm3 (4.2-5.4); White Blood Count 7.1 K/mm3 (4.4-11.0)
[2021-11-15 06:19] LABS: AST(SGOT) 16 U/L (15-37); Alanine Aminotransfer ALT/SGPT 25 U/L (13-56); Albumin, Serum 3.2 g/dL (3.2-5.0); Alkaline Phosphatase 70 U/L (45-117); Anion Gap 5 (5-15); BUN 11 mg/dL (7-18); BUN/Creat Ratio 13.8 RATIO (10-20); Calcium,Total 8.6 mg/dL (8.5-10.1); Chloride 106 mmol/L (98-107); Cholesterol 168 mg/dL (200); EST Glomerular Filtration Rate 80 mL/min (>60); Est Glom Filt Rate - Afr Amer 96 mL/min (>60); Globulin 3.3 g/dL (2.2-4.2); Glucose 120 mg/dL (74-106); High Density Lipoprotein 39 mg/dL; Potassium 3.9 mmol/L (3.5-5.1); Protein, Total 6.5 g/dL (6.4-8.2); Sodium Level 139 mmol/L (136-145); Thyroid Stim Hormone (TSH) 0.65 uIU/mL (0.358-3.74); Triglycerides 130 mg/dL; Very Low Density Lipoprotein 26 mg/dL (5-40)
[2021-11-15 07:42] LABS: Hemoglobin A1c 5.5 % (3.8-5.6)
[2021-11-15] MEDS: Aspirin 81 MG TAB.CHEW PO (09:15)
[2021-11-15] MEDS: Enoxaparin 40 MG/0.4 ML Syringe SC (09:15)
--- NOTE | 2021-11-15 11:37 | ECHOD_ITS ---
Reason For Study: Emboli Procedure This was a 2D Doppler, Color Flow transthoracic echocardiogram. The exam was of adequate technical quality. Exam performed portable in patient room. Left Ventricle Normal LV size. Left ventricular systolic function is normal. The estimated ejection fraction is 65 %. No evidence for diastolic dysfunction. No regional wall motion abnormalities noted. Right Ventricle Normal RV size. Normal systolic function. Atria Normal left atrium. Normal right atrium. No doppler evidence for ASD. Mitral Valve There is no mitral annular calcification. Normal mitral valve. Trivial mitral valve insufficiency. Tricuspid Valve Normal tricuspid valve. Trivial tricuspid valve insufficiency. Unable to estimate RV systolic pressure due to insufficient tricuspid regurgitant envelope. Aortic Valve Trisinus/trileaflet aortic valve. Normal aortic valve. Pulmonic Valve The pulmonic valve is not well visualized. Great Vessels Normal sized aortic root. Pericardium/Pleural No pericardial effusion. MMode/2D Measurements & Calculations LVIDd: 3.8 cm IVSd: 1.5 cm Ao root diam: 3.3 cm LVIDs: 2.8 cm LVPWd: 0.83 cm LA dimension: 3.5 cm RVDd: 2.6 cm FS: 27.1 % LAV(MOD-bp): 35.3 ml LA A4 area: 12.3 cm2 RA A4 area: 9.9 cm2 LAV(MOD-bp) Indexed: 19.0 ml/m2 LAV(MOD-sp2): 33.8 ml LAV(MOD-sp4): 29.6 ml Time Measurements MV dec time: 0.19 sec Doppler Measurements & Calculations MV E max margaret: 73.0 cm/sec MV V2 max: 117.3 cm/sec MV P1/2t max margaret: 85.7 cm/sec MV A max margaret: 95.3 cm/sec MV max P.5 mmHg MV P1/2t: 65.1 msec MV E/A: 0.77 MV V2 mean: 60.3 cm/sec MV dec slope: 385.6 cm/sec2 MV mean P.8 mmHg MVA(P1/2t): 3.4 cm2 MV V2 VTI: 30.2 cm Ao V2 max: 125.1 cm/sec LV V1 max: 119.1 cm/sec PA V2 max: 90.0 cm/sec Ao max P.3 mmHg LV V1 max P.7 mmHg Ao V2 mean: 87.3 cm/sec LV V1 mean P.7 mmHg Ao mean P.4 mmHg LV V1 mean: 76.3 cm/sec Ao V2 VTI: 28.8 cm LV V1 VTI: 27.2 cm ECHO/Echo Complete Interpretation Summary Left ventricular systolic function is normal. The estimated ejection fraction is 65 %. Trivial mitral valve insufficiency. Trivial tricuspid valve insufficiency. Unable to estimate RV systolic pressure due to insufficient tricuspid regurgita nt envelope. No evidence for diastolic dysfunction. Ordering Physician: Charmaine Hernandez Referring Physician: Hilda Hatch M.D. Performed By: Jordi Xavier RCS
--- NOTE | 2021-11-15 11:45 | CASEMGMT ---
FRANCESCO JIMENEZ Face to Face with patient for initial transition planning/care coordination assessment. RN CM introduced self and role at [facility]. Patient lying in bed, alert and oriented, at bedside. Patient willing to participate in assessment and is able to answer all questions appropriately. Care providers, pharmacy, and demographics verified. Patient wishes to discharge home, denies need for home health at this time. Will monitor progress with therpay for discharge needs. Patient states she has no further needs or concerns at this time. CM to follow for discharge planning needs that may arise. 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 Transportation: self, DME/HHC: Patient denies DME in the home. NO previous HHC. Will monitor progress with therapy for possible walker and outpatient therapy. Disposition Plan: Patient to discharge home with family support and follow-up plans in place. Samra STEVENS, RN, CM
[2021-11-15] MEDS: 0.9% Saline Lock 10 ML Syringe IV ×2 (12:36→20:47)
[2021-11-15] MEDS: LORazepam 2 MG/ML Syringe 1 MG IV (12:37)
--- NOTE | 2021-11-15 14:14 | NURSING ---
NIH late d/t pt being off floor in MRI. Call placed to Scot Traylor for emotional support d/t recent of father.
--- NOTE | 2021-11-15 15:00 | MRI_ITS ---
STUDY: MRI BRAIN WITHOUT CONTRAST REASON FOR EXAM: Female, 56 years old. CVA TECHNIQUE: Standardized multiplanar fat and water weighted pulse sequences were obtained. COMPARISON: None. FINDINGS: Normal size of the ventricles and extra-axial spaces for the patient''s age. Normal white matter tracts of the supratentorial brain. There is no evidence for recent intracranial ischemia or other cause of cytotoxic edema on diffusion weighted imaging (DWI). Normal T2* images of the brain without demonstrated susceptibility artifact. There is no demonstrated hemosiderin stain. Normal bilateral basal ganglia. Normal thalami. There is no extra-axial fluid accumulation. Normal flow voids within the major intracranial circulation suggesting patency by spin echo criteria. Normal sella turcica, pituitary gland, infundibular stalk, optic chiasm and hypothalamus. Normal tectal plate and pineal gland. Normal midbrain, jaziel and medulla. Normal cerebellum. Normal basal cisterns. Normal bilateral temporal bones. Normal bilateral internal auditory canals. No demonstrated orbital abnormality, within the constraints of a routine brain study. Small mucous retention cyst in the floor the right maxillary sinus. Normal calvarium and skull base. Normal visualized soft tissue structures. Normal visualized upper cervical spine. MRI/Brain without Contrast IMPRESSION: Normal unenhanced MRI of the brain. Electronically Signed: Aman Reddy MD at 14:28 EDT ,
[2021-11-15] MEDS: Metoprolol Tartrate 50 MG Tablet PO (15:08)
--- NOTE | 2021-11-15 15:30 | TELEMED_ITS ---
[facility] Telemed has confirmed receipt of a request for visit. This document confirms receipt of the order initiating the consult. To find the results of the consultation, please view the patient's reports for the scanned Telemed Consult.
--- NOTE | 2021-11-15 15:37 | CASEMGMT ---
SW completed a PHQ 9 with patient as she may have had a TIA. Patient scored a 6 which indicates mild depression. Patient is currently under a lot of stress. 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 Patient stated she does not have time to be sick. SW provided emotional support. SW also provided patient with a list of counselors that take patient's insurance. Tova TORRES
--- NOTE | 2021-11-15 16:29 | CHAPLAIN ---
Type of Pastoral Visit _x__ Initial Visit ___ Follow-up Visit ___ On-call Visit ___ General Patient Visit ___ Spiritual Assessment ___ Family Conference ___ Bereavement ___ Rapid Response ___ Code Blue ___ Other (describe below) Pastoral Care Referral From ___ Patient ___ Family _x__ Nurse ___ Physician ___ Bench Inspector ___ Industrial Safety And Health Manager ___ Other (describe below) Sacrament/Intervention _x__ Active listening ___ Anointing ___ Baptist _x__ Bereavement ___ Communion ___ [place] exploration ___ _x__ Life review _x__ Prayer ___ Reconciliation ___ Sacrament of Sick _x__ Supportive presence ___ Wedding ___ Other (describe below) Pastoral Comments RN recommended visit of support to this patient; pt is welcoming and speaks of her new illness and testing; pt is asked about other concerns and pt becomes tearful; pt speaks of her grief over recent of her father and the declining health of her mother which I need to be prepared for her; 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
[2021-11-15] MEDS: cloNIDine HCl 0.2 MG Tablet PO (18:30)
[2021-11-15] MEDS: Atorvastatin Calcium 80 MG Tablet PO (20:44)
[2021-11-15] MEDS: Metoprolol Tartrate 25 MG Tablet 75 MG PO (20:46)
[2021-11-16] VITALS (23 sets, daily range): BP systolic 117–184; BP diastolic 66–106; PULSE 54–84; RESP 14–18; TEMP 36.1–36.9; O2SAT 94–100; BMI 29.2
--- NOTE | 2021-11-16 00:33 | NURSING ---
11/15/21 @ 2099 Report called to Kala Mckeon RN on ICU. Patient then transported to ICU via w/c accompanied by this RN and MIXING PICKER TENDER arriving in ICU room 2 at 2109.
[2021-11-16] MEDS: Acetaminophen 325 MG Tablet 650 MG PO ×2 (05:08→18:10)
[2021-11-16 05:16] LABS: Absolute Lymphocyte Count 1.85 X10^3/uL (0.83-4.51); Absolute Neutrophil Count 4.5 X10^3/uL (2.0-7.7); Basophil# 0.03 X10^3/uL; Basophil% 0.4 % (0-1); Eosinophils% 2.9 % (0-5); Hematocrit 43.5 % (37-47); Hemoglobin 13.8 g/dL (12.0-15.0); Lymphocyte # 1.85 X10^3/ul (0.83-4.51); Lymphocyte % 26.8 % (19-41); Mean Corp Hgb Conc 31.7 g/dL (32-36); Mean Corpuscular Volume 91.4 fL (81-99); Mean Platelet Vol. 9.2 fl (6.2-12.0); Monocyte# 0.34 X10^3/uL; Monocyte% 4.9 % (0-10); NRBC Flagged by Analyzer 0 % (0-5); Neutrophil # 4.46 X10^3/uL (2.7-7.7); Neutrophil % 64.7 % (47-70); POSITIVE COUNT YES; Platelet Count 165 K/mm3 (150-450); RBC Distribution Width CV 12.3 % (11.6-14.6); RBC Distribution Width SD 41.1 fl (35.1-43.9); Red Blood Count 4.76 M/mm3 (4.2-5.4); White Blood Count 6.9 K/mm3 (4.4-11.0)
[2021-11-16 05:22] LABS: Differential Indicated SCAN CRITERIA MET
[2021-11-16 05:25] LABS: Anion Gap 4 (5-15); BUN 11 mg/dL (7-18); BUN/Creat Ratio 15.5 RATIO (10-20); Calcium,Total 8.9 mg/dL (8.5-10.1); Chloride 105 mmol/L (98-107); Creatinine, Serum 0.71 mg/dL (0.55-1.02); EST Glomerular Filtration Rate 91 mL/min (>60); Est Glom Filt Rate - Afr Amer 110 mL/min (>60); Estimated Creatinine Clearance 80.56 ml/min; Glucose 99 mg/dL (74-106); Potassium 3.9 mmol/L (3.5-5.1); Sodium Level 138 mmol/L (136-145)
[2021-11-16 05:46] LABS: Phosphorus 3.4 mg/dL (2.5-4.9)
--- NOTE | 2021-11-16 07:26 | MRI_ITS ---
HISTORY: diplopia -- special attention to right pontine region please; F/U TO PREV MRI. TECHNIQUE: Multiplanar and multisequence MR images of the brain were obtained without contrast. 67 images. COMPARISON: Noncontrast MR prior day. FINDINGS: BRAIN PARENCHYMA: No enhancing mass. No abnormal enhancement in the jaziel. CSF SPACES: No abnormal extra-axial enhancement. No significant mass effect. OTHER: No abnormal enhancement of the optic chiasm or suprasellar mass. No abnormal enhancement of the optic nerves. MRI/Brain WITH Contrast IMPRESSION: No evidence for enhancing intracranial mass. Electronically Signed: Miriam Mejia MD at 13:29 EDT ,
[2021-11-16] MEDS: Metoprolol Tartrate 50 MG Tablet PO (10:15)
[2021-11-16] MEDS: Aspirin 81 MG TAB.CHEW PO (10:16)
--- NOTE | 2021-11-16 10:30 | PN.HOSP_ITS ---
Subjective Subjective Patient seen and examined. She still complains of numbness on the right side of her face, and still has diplopia. Neurology reviewed her yesterday and recommended initiation of nicardipine drip to bring down her BP. She was never trended to the ICU for the nicardipine drip but she never had it started as a blood pressure came down. Review of systems otherwise negative. She has remained hemodynamically stable. Objective Data Objective Data Vital Signs: Vital Signs Temp Pulse Resp BP Pulse Ox O2 Del Method 97.9 F 66 18 144/72 H 97 Room Air 11/16/21 08:00 11/16/21 10:15 11/16/21 10:00 11/16/21 10:00 11/16/21 10:00 11/16/21 10:00 Oxygen Delivery Method Room Air Weight: 176 lb 12.972 oz Body Mass Index (BMI) 29.2 Intake & Output: Intake and Output for Last 24 Hours 11/14/21 11/15/21 11/16/21 23:59 23:59 23:59 Intake Total 3223.34 / 3223.34 250 / 250 Output Total 400 / 400 Balance 2823.34 / 2823.34 250 / 250 Lab / Micro Data Result Diagrams: 11/16/21 04:50 11/16/21 04:50 Labs: Laboratory Results - last 24 hr 11/16/21 04:50: WBC 6.9, RBC 4.76, Hgb 13.8, Hct 43.5, MCV 91.4, MCH 29.0, MCHC 31.7 L, RDW Std Deviation 41.1, RDW Coeff of Rebecca 12.3, Plt Count 165, MPV 9.2, Immature Gran % (Auto) 0.300, Neut % (Auto) 64.7, Lymph % (Auto) 26.8, [place] % (Auto) 4.9, Eos % (Auto) 2.9, Baso % (Auto) 0.4, Absolute Neuts (auto) 4.5, Absolute Lymphs (auto) 1.85, Nucleated RBC % 0 11/16/21 04:50: Sodium 138, Potassium 3.9, Chloride 105, Carbon Dioxide 29.0, Anion Gap 4 L, BUN 11, Creatinine 0.71, Estim Creat Clear Calc 80.56, Est GFR (MDRD) Af Amer 110, Est GFR (MDRD) Non-Af 91, BUN/Creatinine Ratio 15.5, Glucose 99, Calcium 8.9 11/16/21 04:50: Phosphorus 3.4 Radiography Diagnostic Testing: Radiology Impression Echocardiogram 11/15/21 11:37 Interpretation Summary Left ventricular systolic function is normal. The estimated ejection fraction is 65 %. Trivial mitral valve insufficiency. Trivial tricuspid valve insufficiency. Unable to estimate RV systolic pressure due to insufficient tricuspid regurgitant envelope. No evidence for diastolic dysfunction. Ordering Physician: Charmaine Hernandez Referring Physician: Hilda Hatch M.D. Performed By: Jordi Xavier RCS Brain MRI 11/15/21 15:00 IMPRESSION: Normal unenhanced MRI of the brain. Electronically Signed: Aman Reddy MD at 14:28 EDT , Physical Exam Const alert, oriented x3 and no apparent distress HEENT head/scalp atraumatic, moist oral mucous membranes and oropharynx normal Head and Scalp: normocephalic Mouth: oral and palatal mucosa normal Eyes PERRL, EOMs intact bilaterally and conjunctivae normal Neck no lymphadenopathy Resp normal respiratory effort, no retractions, no use of accessory muscles and clear to auscultation bilaterally Cardio regular rate, regular rhythm, S1 normal heart sound, S2 normal heart sound and no murmurs GI normal to inspection, nondistended, normoactive bowel sounds, soft to palpation, non-tender and non-distended Extremity normal to inspection, full ROM and no clubbing, cyanosis or edema Neuro oriented x3 and moves all extremities Neuro Narrative: has diplopia when both eyes are open; mild right facial numbness Sensorium / Orientation: awake Coordination / Balance: [id number] test normal Motor Exam: strength 5/5 throughout Psych affect normal Assessment & Plan Assessment/Plan (1) Diplopia: (2) Facial paresthesia: PLAN: Plan #Diplopia and facial parasthesia * concerning for stroke * MRI of the brain was read as normal; neurology reviewed MRI and was concerned it was abnormal * recommended patient have a repeat brain MRi with contrast, to focus on T1 sequence and right pontine area * 2D echo showed EF of 65%, with trivial mitral valve insufficiency, unable to estimate RV systolic pressure. * CTA head and neck showed no acute pathology * on aspirin and high intensity statin * repeat MRI ordered and pending * goal is to keep systolic BP<180 * #Hypertension; * on metoprolol 50mg daily, 75mg qhs. * didnt require nicardipine drip yesterday * #GERD: on PPI and sucralfate DVT prophylaxis: lovenox Charges/Coding Visit Charges OBSV E&M: 50907 Subsequent observation care L2
--- NOTE | 2021-11-16 10:41 | NURSING ---
Performed [facility] on patient. Scored a 2
--- NOTE | 2021-11-16 10:44 | PN.HOSP_ITS ---
Subjective Subjective Late entry note for 11/15/2021 Patient was seen on 11/15/2021. Still complaining of the right-sided facial that visit the diplopia. Patient also complained of chronic diarrhea which she says started in August 2021 for which she is scheduled to follow-up with gastroenterology in January. Review of systems otherwise negative. Objective Data Objective Data Intake & Output: Intake and Output for Last 24 Hours 11/14/21 11/15/21 11/16/21 23:59 23:59 23:59 Intake Total 3223.34 / 3223.34 250 / 250 Output Total 400 / 400 Balance 2823.34 / 2823.34 250 / 250 Lab / Micro Data Result Diagrams: 11/16/21 04:50 11/16/21 04:50 Labs: Laboratory Results - last 24 hr 11/16/21 04:50: WBC 6.9, RBC 4.76, Hgb 13.8, Hct 43.5, MCV 91.4, MCH 29.0, MCHC 31.7 L, RDW Std Deviation 41.1, RDW Coeff of Rebecca 12.3, Plt Count 165, MPV 9.2, Immature Gran % (Auto) 0.300, Neut % (Auto) 64.7, Lymph % (Auto) 26.8, [place]in % (Auto) 4.9, Eos % (Auto) 2.9, Baso % (Auto) 0.4, Absolute Neuts (auto) 4.5, Absolute Lymphs (auto) 1.85, Nucleated RBC % 0 11/16/21 04:50: Sodium 138, Potassium 3.9, Chloride 105, Carbon Dioxide 29.0, Anion Gap 4 L, BUN 11, Creatinine 0.71, Estim Creat Clear Calc 80.56, Est GFR (MDRD) Af Amer 110, Est GFR (MDRD) Non-Af 91, BUN/Creatinine Ratio 15.5, Glucose 99, Calcium 8.9 11/16/21 04:50: Phosphorus 3.4 Radiography Diagnostic Testing: Radiology Impression Echocardiogram 11/15/21 11:37 Interpretation Summary Left ventricular systolic function is normal. The estimated ejection fraction is 65 %. Trivial mitral valve insufficiency. Trivial tricuspid valve insufficiency. Unable to estimate RV systolic pressure due to insufficient tricuspid regurgitant envelope. No evidence for diastolic dysfunction. Ordering Physician: Charmaine Hernandez Referring Physician: Hilda Hatch M.D. Performed By: Jordi Xavier RCS Brain MRI 11/15/21 15:00 IMPRESSION: Normal unenhanced MRI of the brain. Electronically Signed: Aman Reddy MD at 14:28 EDT , Physical Exam Const alert, oriented x3 and no apparent distress HEENT head/scalp atraumatic, moist oral mucous membranes and oropharynx normal Eyes PERRL, EOMs intact bilaterally and conjunctivae normal Neck no lymphadenopathy Resp normal respiratory effort, no retractions, no use of accessory muscles and clear to auscultation bilaterally Cardio regular rate, regular rhythm, S1 normal heart sound, S2 normal heart sound and no murmurs GI normal to inspection, nondistended, normoactive bowel sounds, soft to palpation, non-tender and non-distended Extremity normal to inspection, full ROM and no clubbing, cyanosis or edema Neuro oriented x3 and moves all extremities Neuro Narrative: has diplopia when both eyes are open; mild right facial numbness Sensorium / Orientation: awake Coordination / Balance: [id number] test normal Motor Exam: strength 5/5 throughout Psych affect normal Assessment & Plan Assessment/Plan (1) Diplopia: (2) Facial paresthesia: PLAN: Plan #Diplopia and facial parasthesia * concerning for stroke * MRI of the brain, as well as 2D echo ordered and pending * CTA head and neck showed no acute pathology * on aspirin and high intensity statin * goal is to keep systolic BP<180 * #Hypertension; * on metoprolol 50mg daily, 75mg qhs. * give PO clonidine 0.2mg x 1 due to poorly controlled blood pressure * IV hydralazine prn * #GERD: on PPI and sucralfate DVT prophylaxis: lovenox Charges/Coding Visit Charges OBSV E&M: 23406 Subsequent observation care L2
[2021-11-16] MEDS: 0.9% Saline Lock 10 ML Syringe IV ×2 (11:59→16:08)
[2021-11-16] MEDS: LORazepam 2 MG/ML Syringe 1 MG IV (11:59)
[2021-11-16] MEDS: hydrALAZINE 20 MG/ML Vial 10 MG IV (16:06)
[2021-11-16] MEDS: Metoprolol Tartrate 25 MG Tablet 75 MG PO (21:37)
[2021-11-16] MEDS: MELATONIN 3 MG TABLET PO (21:38)
[2021-11-16] MEDS: Ibuprofen 600 MG Tablet PO (21:38)
[2021-11-17 02:24] VITALS: BP 131/68; PULSE 56; RESP 16; TEMP 36.6; O2SAT 99
[2021-11-17 03:55] VITALS: PULSE 57
[2021-11-17 06:51] LABS: Absolute Lymphocyte Count 1.84 X10^3/uL (0.83-4.51); Absolute Neutrophil Count 4.5 X10^3/uL (2.0-7.7); Basophil# 0.02 X10^3/uL; Basophil% 0.3 % (0-1); Eosinophil# 0.24 X10^3/uL; Eosinophils% 3.4 % (0-5); Hematocrit 45.3 % (37-47); Hemoglobin 15.1 g/dL (12.0-15.0); Lymphocyte # 1.84 X10^3/ul (0.83-4.51); Lymphocyte % 26.2 % (19-41); Mean Corp Hgb Conc 33.3 g/dL (32-36); Mean Corpuscular Hgb 29.4 pg (27.0-32.0); Mean Corpuscular Volume 88.1 fL (81-99); Mean Platelet Vol. 9.1 fl (6.2-12.0); Monocyte# 0.39 X10^3/uL; Monocyte% 5.6 % (0-10); NRBC Flagged by Analyzer 0 % (0-5); Neutrophil # 4.51 X10^3/uL (2.7-7.7); Neutrophil % 64.2 % (47-70); Platelet Count 211 K/mm3 (150-450); RBC Distribution Width CV 12.3 % (11.6-14.6); RBC Distribution Width SD 39.8 fl (35.1-43.9); Red Blood Count 5.14 M/mm3 (4.2-5.4)
[2021-11-17 07:11] LABS: Anion Gap 7 (5-15); BUN 20 mg/dL (7-18); BUN/Creat Ratio 19.8 RATIO (10-20); Calcium,Total 9.3 mg/dL (8.5-10.1); Chloride 104 mmol/L (98-107); Creatinine, Serum 1.01 mg/dL (0.55-1.02); EST Glomerular Filtration Rate 60 mL/min (>60); Est Glom Filt Rate - Afr Amer 73 mL/min (>60); Estimated Creatinine Clearance 56.63 ml/min; Glucose 90 mg/dL (74-106); Potassium 3.9 mmol/L (3.5-5.1); Sodium Level 137 mmol/L (136-145)
[2021-11-17 07:38] VITALS: PULSE 58
[2021-11-17 08:49] VITALS: BP 153/89; PULSE 66; RESP 16; TEMP 36; O2SAT 99
[2021-11-17] MEDS: Aspirin 81 MG TAB.CHEW PO (08:53)
[2021-11-17 08:54] VITALS: PULSE 66
[2021-11-17] MEDS: Enoxaparin 40 MG/0.4 ML Syringe SC (08:54)
[2021-11-17] MEDS: Metoprolol Tartrate 50 MG Tablet PO (08:54)
[2021-11-17] MEDS: Pantoprazole Sodium 40 MG Tablet PO (08:56)
--- NOTE | 2021-11-17 11:56 | DS.PCM_ITS ---
Providers Date of Admission: 11/14/21 Date of Discharge: 11/17/21 Primary Care Physician: Dr. Hilda Hatch MD Reason For Visit: CVA Diagnosis Discharge Diagnosis (1) Diplopia: Status: Acute Code(s): H53.2 - Diplopia (2) Facial paresthesia: Status: Acute Code(s): R20.2 - Paresthesia of skin Plan #Diplopia and facial parasthesia * concerning for stroke * MRI of the brain, as well as 2D echo ordered and pending * CTA head and neck showed no acute pathology * on aspirin and high intensity statin * goal is to keep systolic BP<180 * #Hypertension; * on metoprolol 50mg daily, 75mg qhs. * give PO clonidine 0.2mg x 1 due to poorly controlled blood pressure * IV hydralazine prn * #GERD: on PPI and sucralfate DVT prophylaxis: lovenox Medications at Discharge Home Medications Bifidobacterium infantis 4 mg capsule (Align) 4 mg PO DAILY 07/28/19 omeprazole 20 mg capsule,delayed release 20 mg PO DAILY PRN Acid Reflux 03/10/20 sucralfate 1 gram tablet 1 g PO BID PRN PRN Acid Reflux 11/09/21 aspirin 81 mg chewable tablet 81 mg PO BREAKFAST #30 tabs 11/17/21 hydralazine 25 mg tablet 25 mg PO TID #90 tabs 11/17/21 metoprolol tartrate 75 mg tablet 75 mg PO BID #60 tabs 11/17/21 Hospital Course Operations None Procedures None and 2-D Echocardiogram Summary of Care Provided Minutes Spent on Discharge: 40 Hospital Course: Patient is a 56-year-old female with an extensive past medical history as outlined was admitted through the ED on 11/14/2021 with a complaint of right-sided facial paresthesias as well as double vision and blurred vision which was worse when she turns her head to the right. Symptoms have been going on for few hours prior to admission. She denied any other focal weakness or numbness. Stroke alert was called when she arrived in the ED and she was not deemed as needing tPA. Her blood pressure was also markedly elevated on admission with blood pressure being 223/99. CT of the brain showed no acute intracranial pathology and chest x-ray showed no acute cardiopulmonary findings. She was admitted to be managed for diplopia and right-sided facial numbness to rule out a stroke. She had MRI of the brain done which was negative for any evidence of stroke. [facility] neurology was consulted and reviewed patient and was concerned about an abnormality in the MRI mainly in the right pontine region. CTA of the head and neck showed no acute pathology or any hemodynamically stable Stenosis and 2D echo showed EF of 65% with trivial mitral valve insufficiency. Neurology requested a repeat MRI with contrast to focus on T1 sequence in the right pontine area. This was done and was read as normal. [facility] neurology was consulted again and recommended that patient followed up with a neurologist on outpatient basis. Patient blood pressure had markedly elevated and she was actually transferred to the ICU with the assumption that she would need nicardipine drip. However this was not ever required. Her blood pressure gradually improved and her blood pressure medications. On discharge, her metoprolol dose was 50 mg twice daily and hydralazine 50 mg 3 times daily was also added on. She is follow-up with her primary care doctor and was also referred to neurology as well as ophthalmology. Patient seen and examined prior to discharge. She still complained of the numbness and tingling in the diplopia. He had no other complaints and review of systems otherwise negative. Labs and vitals reviewed. Home medication reviewed and reconciled. Physical Exam Const alert, oriented x3 and no apparent distress General Appearance: cooperative, comfortable and well kempt Orientation / Consciousness: awake Exam Limitations: no limitations HEENT normocephalic, head/scalp atraumatic, hearing grossly normal bilaterally, moist oral mucous membranes and oropharynx normal Mouth: oral and palatal mucosa normal Eyes PERRL, EOMs intact bilaterally and conjunctivae normal Neck no lymphadenopathy Resp normal respiratory effort, no retractions, no use of accessory muscles and clear to auscultation bilaterally Cardio regular rate, regular rhythm, S1 normal heart sound, S2 normal heart sound and no murmurs GI normal to inspection, nondistended, normoactive bowel sounds, soft to palpation, non-tender and non-distended Extremity normal to inspection, full ROM and no clubbing, cyanosis or edema Skin no rashes or lesions noted Neuro oriented x3 and moves all extremities Neuro Narrative: has diplopia when both eyes are open; persistent mild right facial numbness Sensorium / Orientation: awake Coordination / Balance: [id number] test normal Motor Exam: strength 5/5 throughout Psych affect normal Weight / BMI Weight Weight: 174 lb 13.225 oz Body Mass Index (BMI) 29.2 ABG / Lab / Microbiology Data Result Diagrams: 11/17/21 06:25 11/17/21 06:25 Laboratory: Laboratory Results - last 24 hr 11/17/21 06:25: WBC 7.0, RBC 5.14, Hgb 15.1 H, Hct 45.3, MCV 88.1, MCH 29.4, MCHC 33.3 D, RDW Std Deviation 39.8, RDW Coeff of Rebecca 12.3, Plt Count 211, MPV 9.1, Immature Gran % (Auto) 0.300, Neut % (Auto) 64.2, Lymph % (Auto) 26.2, Stevens % (Auto) 5.6, Eos % (Auto) 3.4, Baso % (Auto) 0.3, Absolute Neuts (auto) 4.5, Absolute Lymphs (auto) 1.84, Nucleated RBC % 0 11/17/21 06:25: Sodium 137, Potassium 3.9, Chloride 104, Carbon Dioxide 26.0, Anion Gap 7, BUN 20 H, Creatinine 1.01, Estim Creat Clear Calc 56.63, Est GFR (MDRD) Af Amer 73, Est GFR (MDRD) Non-Af 60, BUN/Creatinine Ratio 19.8, Glucose 90, Calcium 9.3 Radiography Diagnostic Testing: Radiology Impression Brain MRI 11/16/21 07:26 IMPRESSION: No evidence for enhancing intracranial mass. Electronically Signed: Miriam Mejia MD at 13:29 EDT Reading Location ID and State: [facility] / [place] Tel , Service support , D/C Instructions Discharge Diet: Low fat / Low cholesterol Discharge Activity: Return to Normal Activity Weight Bearing Status: Weight bearing as tolerated Call your doctor if you observe: Fever of 101 or Higher, Shortness of breath, Dizziness, Swelling in the ankles and Chest pain Meaningful Use Info Meaningful Use Diagnoses (Choose all that apply): None applicable Discharge Plan Admission Admit Date/Time: 11/14/21 16:14 Primary Reason for Your Visit: diplopia, facial numbness Attending Provider: Charmaine Hernandez Primary Care Provider: Hilda Hatch Consulting Providers: Tanika Dick Instructions Patient Instructions: ED Double Vision (Diplopia) Additional Instructions / Restrictions: no driving until cleared by neurology. Follow up with ophthalmology within 1-2 weeks for diplopia Discharge Orders/Prescriptions Prescriptions: New aspirin 81 mg Tablet,Chewable 81 mg PO BREAKFAST Qty: 30 1RF metoprolol tartrate 75 mg tablet 75 mg PO BID Qty: 60 1RF hydralazine 25 mg tablet 25 mg PO TID Qty: 90 1RF Continued Align 4 mg capsule 4 mg PO DAILY sucralfate 1 gram tablet 1 g PO BID PRN PRN (Reason: Acid Reflux) omeprazole 20 mg capsule,delayed release(DR/EC) 20 mg PO DAILY PRN (Reason: Acid Reflux) Discontinued metoprolol tartrate 50 mg tablet 75 mg PO QHS Label Comments: 50 mg PO 50mg in the am and 75mg in the pm Rx Instructions: 50 mg PO 50mg in the am and 75mg in the pm; metoprolol tartrate 50 mg tablet 50 mg PO DAILY Label Comments: TAKE 1 TABLET BY MOUTH TWICE DAILY DIRECTED Referrals / Follow Up: Hilda Hatch MD [Primary Care Provider] - Within 1 Week Prem Storm MD [Non-Staff] - Within 1 Month Disposition Disposition (needs filled in before D/C Order can be placed): Home, Self Care Charges/Coding Visit Charges OBSV E&M: 75851 Observation care discharge
--- NOTE | 2021-11-17 12:03 | DCINST_ITS ---
Discharge Instructions Diet Discharge Diet: Low fat / Low cholesterol Activity Discharge Activity: Return to Normal Activity Weight Bearing Status: Weight bearing as tolerated Dressing / Incision Call your doctor if you observe: Fever of 101 or Higher, Shortness of breath, Dizziness, Fainting spells, Swelling in the ankles and Increased palpitations (irregular heartbeat) Follow Up Care Test Results: Test results from this visit will be discussed in further detail at your follow- up appointment, if applicable. Discharge Plan Admission Admit Date/Time: 11/14/21 16:14 Primary Reason for Your Visit: diplopia, facial numbness Attending Provider: Charmaine Hernandez Primary Care Provider: Hilda Hatch Consulting Providers: Tanika Dick Instructions Patient Instructions: ED Double Vision (Diplopia) Additional Instructions / Restrictions: no driving until cleared by neurology. Follow up with ophthalmology within 1-2 weeks for diplopia Discharge Orders/Prescriptions Prescriptions: New aspirin 81 mg Tablet,Chewable 81 mg PO BREAKFAST Qty: 30 1RF metoprolol tartrate 75 mg tablet 75 mg PO BID Qty: 60 1RF hydralazine 25 mg tablet 25 mg PO TID Qty: 90 1RF Continued Align 4 mg capsule 4 mg PO DAILY sucralfate 1 gram tablet 1 g PO BID PRN PRN (Reason: Acid Reflux) omeprazole 20 mg capsule,delayed release(DR/EC) 20 mg PO DAILY PRN (Reason: Acid Reflux) Discontinued metoprolol tartrate 50 mg tablet 75 mg PO QHS Label Comments: 50 mg PO 50mg in the am and 75mg in the pm Rx Instructions: 50 mg PO 50mg in the am and 75mg in the pm; metoprolol tartrate 50 mg tablet 50 mg PO DAILY Label Comments: TAKE 1 TABLET BY MOUTH TWICE DAILY DIRECTED Referrals / Follow Up: Hilda Hatch MD [Primary Care Provider] - Within 1 Week Prem Storm MD [Non-Staff] - Within 1 Month Disposition Disposition (needs filled in before D/C Order can be placed): Home, Self Care
[2021-11-17 14:10] VITALS: BP 170/90; PULSE 67; RESP 16; TEMP 36.2; O2SAT 98
== END 2021-11-17 14:36 | disposition home or self-care (01) | DRG 123 ==
LOC: ED 16:15 → PCU 17:05 → ICU 01-11 07:56 → PCU 01-11 07:56
PROVIDERS: Internal Medicine; Admitting Provider Family Medicine; Emergency Provider Emergency Medicine; PCP Internal Medicine; Visit Provider Student in an Organized Health Care Education/Training Program
DX: H53.2 Diplopia (principal); E66.3 Overweight; K21.9 Gastro-esophageal reflux disease without esophagitis; I10 Essential (primary) hypertension; F41.9 Anxiety disorder, unspecified; R20.2 Paresthesia of skin; Z87.891 Personal history of nicotine dependence; R73.9 Hyperglycemia, unspecified; F32.A Depression, unspecified; Z68.29 Body mass index [BMI] 29.0-29.9, adult; Z79.899 Other long term (current) drug therapy; I16.0 Hypertensive urgency
CPT/HCPCS: 36415; 70450; 70496; 70498; 70551; 70552; 71045; 80048; 80053; 80061; 82962; 83036; 83735; 84100; 84443; 84484; 85025; 85610; 85730; 92610; 93005; 93306; 94762; 96361; 96372; 96374; 96375; 96376; 97162; 97166; 97802; 99218; 99285; A9575; J7030; Q9967; A4216; G0378

== ENCOUNTER → 2022-01-22 | Outpatient (CLI) | payer BC, SELFPAY ==
[2022-01-22 12:32] LABS: Absolute Lymphocyte Count 1.33 X10^3/uL (0.83-4.51); Absolute Neutrophil Count 5.6 X10^3/uL (2.0-7.7); Basophil# 0.02 X10^3/uL; Basophil% 0.3 % (0-1); Eosinophils% 1.3 % (0-5); Hematocrit 42.7 % (37-47); Hemoglobin 13.7 g/dL (12.0-15.0); Lymphocyte # 1.33 X10^3/ul (0.83-4.51); Lymphocyte % 17.7 % (19-41); Mean Corp Hgb Conc 32.1 g/dL (32-36); Mean Corpuscular Hgb 28.7 pg (27.0-32.0); Mean Corpuscular Volume 89.5 fL (81-99); Mean Platelet Vol. 9.4 fl (6.2-12.0); Monocyte% 5.3 % (0-10); NRBC Flagged by Analyzer 0 % (0-5); Neutrophil # 5.63 X10^3/uL (2.7-7.7); Platelet Count 247 K/mm3 (150-450); RBC Distribution Width CV 13.1 % (11.6-14.6); RBC Distribution Width SD 43.1 fl (35.1-43.9); Red Blood Count 4.77 M/mm3 (4.2-5.4); White Blood Count 7.5 K/mm3 (4.4-11.0)
[2022-01-22 13:06] LABS: ALB/GLOB Ratio 0.9 RATIO (0.9-2.4); AST(SGOT) 15 U/L (15-37); Alanine Aminotransfer ALT/SGPT 19 U/L (13-56); Albumin, Serum 3.6 g/dL (3.2-5.0); Alkaline Phosphatase 89 U/L (45-117); Anion Gap 7 (5-15); BUN 15 mg/dL (7-18); BUN/Creat Ratio 17.5 RATIO (10-20); Calcium,Total 9.1 mg/dL (8.5-10.1); Chloride 103 mmol/L (98-107); Creatinine, Serum 0.86 mg/dL (0.55-1.02); EST Glomerular Filtration Rate 73 mL/min (>60); Est Glom Filt Rate - Afr Amer 88 mL/min (>60); Ferritin 51 ng/mL (8-252); Globulin 3.8 g/dL (2.2-4.2); Glucose 109 mg/dL (74-106); LDH 171 U/L (84-246); Potassium 3.6 mmol/L (3.5-5.1); Protein, Total 7.4 g/dL (6.4-8.2); Sodium Level 138 mmol/L (136-145)
[2022-01-23 15:08] LABS: Endomysial Antibody IgA Negative (Negative)
[2022-01-23 18:08] LABS: Immunoglobulin A 240 mg/dL (87-352); t-Transglutaminase IgA <2 U/mL (0-3)
[2022-01-24 07:08] LABS: Anti-Centromere B Ab <0.2 AI (0.0-0.9); Anti-Chromatin <0.2 AI (0.0-0.9); Anti-Jo <0.2 AI (0.0-0.9); Anti-Scleroderma-70 AB <0.2 AI (0.0-0.9); RNP Ab 0.2 AI (0.0-0.9); SJOGREN'S Anti-SS-A test < 0.2 AI (0.0-0.9); SJOGREN'S Anti-SS-B test < 0.2 AI (0.0-0.9); Smith Ab <0.2 AI (0.0-0.9)
[2022-01-24 08:57] LABS: Anti-dsDNA Ab 2 IU/mL (0-9)
[2022-01-29 17:07] LABS: Albumin 3.8 g/dL (2.9-4.4); Alpha-1-Globulins 0.2 g/dL (0.0-0.4); Alpha-2-Globulins 0.6 g/dL (0.4-1.0); Cytoplasmic Ab (C-ANCA) <1:20 titer (Neg:<1:20); Gamma Globulin 1.2 g/dL (0.4-1.8); Immunoglobulin A 242 mg/dL (87-352); Immunoglobulin G 1098 mg/dL (586-1602); Immunoglobulin M 255 mg/dL (26-217); PROEL- TOTAL PROTEIN 6.8 g/dL (6.0-8.5)
[2022-01-30 18:05] LABS: Immunoglobulin E 10 IU/mL (6-495)
[2022-01-30 18:06] LABS: Perinuclear Ab (P-ANCA) <1:20 titer (Neg:<1:20)
== END | disposition home or self-care (01) ==
PROVIDERS: PCP Internal Medicine; Referring Provider Internal Medicine Gastroenterology; Visit Provider Internal Medicine Gastroenterology
DX: R10.9 Unspecified abdominal pain (principal)
CPT/HCPCS: 36415; 80053; 82728; 82784; 82785; 83516; 83615; 84165; 85025; 86140; 86225; 86235; 86255; 86256; 86334; 86664

== ENCOUNTER → 2022-01-23 | Outpatient (CLI) | payer BC, SELFPAY ==
[2022-01-26 13:04] LABS: Pancreatic Elastase, Fecal 456 (>200)
[2022-01-28 09:17] LABS: Calprotectin, Stool <16 ug/g (0-120); Fats, Neutral Normal (.); Fats, Total Normal (.)
== END | disposition home or self-care (01) ==
LOC: LABSPEC 11:10
PROVIDERS: PCP Internal Medicine; Referring Provider Internal Medicine Gastroenterology; Visit Provider Internal Medicine Gastroenterology
DX: R10.9 Unspecified abdominal pain (principal); K58.9 Irritable bowel syndrome, unspecified
CPT/HCPCS: 82653; 82705; 83630; 83993; 87493; 87506

== ENCOUNTER 2022-01-29 06:29 | Day surgery (SDC) | payer BC, SELFPAY ==
--- NOTE | 2022-01-29 | GASB_PTH ---
PATIENT: KAREN FRAGA LOC: EN U#:[id number] AGE/SX: 56/F ROOM: RE01/29/[address]: Dr. Dallas Martinez DO : 1965 BED: DIS: 01/29/2022 SPEC #: [id number] RECD: 01/29/22 10:41 STATUS: ERIKA RELashon #: [id number] KEYANA: 01/29/22 00:[address]: Dallas Martinez DEPT: SURGICAL PATHOLOGY RECD BY: Jaziel Wynn ENTERED: 01/29/22 10:41 SP TYPE: Gastric Bx OT DR: Dr. Hilda Hatch MD Tissues: A - Duodenum, NOS B - Pyloric sphincter Procedures: Surgery Specimen Level IV HEADER OPERATION: EGD ([facility]), biopsy, dilation PRE-OP DIAGNOSIS: Abdominal pain TISSUE SUBMITTED: A ? Duodenum biopsy, B ? Pyloric sphincter biopsy MICROSCOPIC DIAGNOSIS A. 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 B. Gastric pylorus sphincter, biopsy: Fragments of benign gastric mucosa with mild chronic inflammation. AM:joao 01/30/2022 MICROSCOPIC DESCRIPTION Slides are reviewed. GROSS DESCRIPTION A - Received in fixative is one container labeled with the patient's name and designated duodenum biopsy. The specimen consists of one irregular fragment of light fernando soft tissue that measures 0.6 x 0.2 x 0.1 cm. The specimen is totally submitted in one cassette. B - Received in fixative is one container labeled with the patient's name and designated pyloric sphincter biopsy. The specimen consists of one irregular fragment of light fernando soft tissue that measures 0.5 x 0.3 x 0.1 cm. The specimen is totally submitted in one cassette. / AM:joao 01/29/2022 TC:3 CPT: 09973 x2
[2022-01-29] MEDS: Lactated Ringers 1,000 ML 15 ML IV (06:45)
[2022-01-29 06:46] VITALS: BP 173/80; PULSE 60; RESP 16; TEMP 36.1; O2SAT 97; BMI 28.6
[2022-01-29 07:06] LABS: Internal QC Validated? YES +Cl - CLEAR BKGD; Pregnancy, Urine Negative Negative
--- NOTE | 2022-01-29 07:08 | HP.PCM_ITS ---
History and Physical Date of Admission: 01/29/22 LAUREN FRAGA, is a 56 F who presents to the office today for Initial consult. Lauren established with this clinic 01.22.22 with referral from PCP for evaluation of right sided abdominal nagging pain radiating into back with associated weight loss, odiferous diarrhea, heartburn, erosive taste in mouth, nausea and bloating; onset with some worsening in September when her father passed. PCP started omeprazole 20mg QD (ineffective) and sucralfate 1g QID (ineffective). Aggravated with PO intake with no alleviating factors noted. Reports colonoscopy with Dr. Vazquez in [address] Marilou BAUMANN in 2019 and reports minimal gastritis. Denies cigarette smoking, rare alcohol intake, no blood thinners. 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 Biochemical workup H.Pylori IgG, CMP, CBC without pertinent abnormality. Stool studies with PCP calprotectin, occult WNL. Exam Const General: cooperative and comfortable Nutritional Appearance: average body habitus and well nourished [facility] Head: normal to inspection Ears: hearing grossly normal bilaterally Nose: external nose normal Face and sinus: normal facial exam Mouth: oral mucosae normal Throat: posterior oropharynx normal Eyes General: appearance normal, both eyes and all related structures Neck Neck: normal visual inspection Chest Chest palpation & inspection: normal inspection of the chest and normal palpation of entire chest wall Resp Effort & Inspection: normal respiratory effort Auscultation: Bilateral: Clear to Auscultation Cardio Palpation: normal PMI Rate: regular rate Rhythm: regular rhythm GI Inspection: normal to inspection Auscultation: normal bowel sounds Percussion: normal to percussion Palpation: no hepatosplenomegaly Skin General: no rashes or lesions noted Neuro General: patient alert Extrem General: normal to inspection Psych Affect: normal affect Quality Reporting Tobacco Screening ([facility] 138) Smoking Status: Former smoker Assessment and Plan Assessment and Plan (1) Abdominal pain: ?Status:?Chronic ?Plan: This is a new diagnosis for abdominal pain does include IBS, celiac disease, small bacterial overgrowth, 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 We will get an upper endoscopy to evaluate upper GI tract along with biochemical and stool testing. She was ok with this plan.? In the interim we will give her medicine to take 1 tablet p.o. every 6 hours as needed abdominal pain.? She is using CBD for the nausea she was experiencing with the pain and she says that does take care of it but it typically tends to come back.? I told her not to take anything else [id number] or prescription kirk for her abdominal pain upper endoscopy, biochemical profile, stool test and gastric emptying study. ? ? ? Orders: Orders OVA+PARA w/Giardia EIA [id number] Today R10.9 - Unspecified abdominal pain ? Comprehensive Metabolic Profil Today R10.9 - Unspecified abdominal pain ? CRP Today R10.9 - Unspecified abdominal pain ? Ferritin Today R10.9 - Unspecified abdominal pain ? LDH Today R10.9 - Unspecified abdominal pain ? CBC W/Diff, Automated Today R10.9 - Unspecified abdominal pain ? JUAQUIN Comprehensive Panel Today R10.9 - Unspecified abdominal pain ? Calprotectin, Stool Today R10.9 - Unspecified abdominal pain ? Fecal Fat, Qualitative Today R10.9 - Unspecified abdominal pain ? CDIFF (PCR) Today R10.9 - Unspecified abdominal pain ? ENTERIC PATHOGEN PANEL STOOL Today K58.9 - Irritable bowel syndrome without diarrhea, R10.9 - Unspecified abdominal pain ? Stool Lactoferrin/WBC Today K58.9 - Irritable bowel syndrome without diarrhea, R10.9 - Unspecified abdominal pain ? ANCA Today R10.9 - Unspecified abdominal pain ? Celiac Disease Profile Today R10.9 - Unspecified abdominal pain ? EBV Nuclear Antigen IgG Today R10.9 - Unspecified abdominal pain ? Immunoglobulin E Today R10.9 - Unspecified abdominal pain ? RAHEEM + Protein Elect, Serum Today R10.9 - Unspecified abdominal pain ? Pancreatic Elastase, Fecal Today R10.9 - Unspecified abdominal pain ? Gastric Emptying Study Today R10.9 - Unspecified abdominal pain ? Miscellaneous Lab Procedure Today R10.9 - Unspecified abdominal pain ? Medications: New hyoscyamine sulfate 0.125 mg? PO BID-QID PRN 30 tabs 1RF dys pepsia ? ? I have re-examined the patient. There are no clinical changes since date of exam.
[2022-01-29 07:52] VITALS: BP 127/55; BP 173/80; PULSE 56; RESP 16; TEMP 36.2; O2SAT 94
[2022-01-29 07:56] VITALS: BP 119/58; BP 173/80; PULSE 54; RESP 16; O2SAT 94
--- NOTE | 2022-01-29 07:56 | OP.EGD_ITS ---
Patient Name: Lauren Voss Procedure Date: 01/29/2022 7:33 AM Date of : 1965 Age: 56 Procedure: Upper GI endoscopy Indications: Epigastric abdominal pain, Abdominal pain in the right upper quadrant, Abdominal pain in the right lower quadrant, Functional Dyspepsia, Failure to respond to medical treatment Providers: Dallas Martinez DO Referring MD: Hilda Hatch Medicines: Monitored Anesthesia Care Patient Profile: This is a 56 year old female. Refer to note in patient chart for documentation of history and physical. Patient has symptoms of chronic abdominal cramping, chronic right upper quadrant abdominal pain and chronic dyspepsia. She is status post EGD for biopsy within the past three years. Complications: No immediate complications. Procedure: Pre-Anesthesia Assessment: - Prior to the procedure, a History and Physical was performed, and patient medications and allergies were reviewed. The patient is competent. The risks and benefits of the procedure and the sedation options and risks were discussed with the patient. All questions were answered and informed consent was obtained. Patient identification and proposed procedure were verified by the physician in the pre-procedure area. Mental Status Examination: alert and oriented. Airway Examination: normal oropharyngeal airway and neck mobility. Respiratory Examination: clear to auscultation. CV Examination: normal. Prophylactic Antibiotics: The patient does not require prophylactic antibiotics. Prior Anticoagulants: The patient has taken no previous anticoagulant or antiplatelet agents. ASA Grade Assessment: II - A patient with mild systemic disease. After reviewing the risks and benefits, the patient was deemed in satisfactory condition to undergo the procedure. The anesthesia plan was to use monitored anesthesia care (MAC). Immediately prior to administration of medications, the patient was re-assessed for adequacy to receive sedatives. The heart rate, respiratory rate, oxygen saturations, blood pressure, adequacy of pulmonary ventilation, and response to care were monitored throughout the procedure. The physical status of the patient was re-assessed after the procedure. After obtaining informed consent, the endoscope was passed under direct vision. Throughout the procedure, the patient's blood pressure, pulse, and oxygen saturations were monitored continuously. The Endoscope was introduced through the mouth, and advanced to the second part of duodenum. The upper GI endoscopy was accomplished without difficulty. The patient tolerated the procedure well. Scope In: 7:39:18 AM Scope Out: 7:47:08 AM Total Procedure Duration Time 0 hours 7 minutes 50 seconds Findings: The examined esophagus was normal. A small hiatal hernia was present. A benign-appearing, intrinsic severe stenosis was found at the pylorus. This was traversed. A TTS dilator was passed through the scope. Dilation with a 20 mm pyloric balloon dilator was performed. The dilation site was examined following endoscope reinsertion and showed moderate improvement in luminal narrowing. Estimated blood loss was minimal. Biopsies were taken with a cold forceps for histology. Verification of patient identification for the specimen was done. Estimated blood loss was minimal. Patchy mildly erythematous mucosa without active bleeding and with no stigmata of bleeding was found in the second portion of the duodenum. Biopsies were taken with a cold forceps for histology. Verification of patient identification for the specimen was done. Estimated blood loss was minimal. Impression: - Normal esophagus. - Small hiatal hernia. - Gastric stenosis was found at the pylorus. Dilated. Biopsied. - Erythematous duodenopathy. Biopsied. Recommendation: - Discharge patient to home. - Resume previous diet. - Continue present medications. - Await pathology results. Procedure Code(s): --- Professional --- 27786, Esophagogastroduodenoscopy, flexible, transoral; with dilation of gastric/duodenal stricture(s) (eg, balloon, bougie) 97427, 59,51, Esophagogastroduodenoscopy, flexible, transoral; with biopsy, single or multiple CPT copyright 2017 [employer]. All rights reserved. The codes documented in this report are preliminary and upon senior informatica developer review may be revised to meet current compliance requirements. Dallas Martinez DO 01/29/2022 7:56:08 AM This report has been signed electronically. Number of Addenda: 0 Note Initiated On: 01/29/2022 7:33 AM
--- NOTE | 2022-01-29 07:57 | OP.CCLET_ITS ---
01/29/2022 Hilda Hatch [address] [place] [address] Re : Upper GI endoscopy procedure for Laurentk Voss Dear Dr. Hatch This procedure was performed on Saturday, January 29, 2022. My impressions and recommendations are as follows: Impressions : - Normal esophagus. - Small hiatal hernia. - Gastric stenosis was found at the pylorus. Dilated. Biopsied. - Erythematous duodenopathy. Biopsied. Recommendations : - Discharge patient to home. - Resume previous diet. - Continue present medications. - Await pathology results. My findings are described in the full procedure note, which is enclosed. If I can be of further assistance, please feel free to contact me at . Sincerely, Dallas Friend, 01/29/2022 7:56:08 AM This report has been signed electronically.
[2022-01-29 08:01] VITALS: BP 128/60; BP 173/80; PULSE 68; RESP 16; O2SAT 99
[2022-01-29 08:06] VITALS: BP 153/60; BP 173/80; PULSE 59; RESP 16; TEMP 36.4; O2SAT 98
[2022-01-29 08:18] VITALS: BP 173/80
== END 2022-01-29 09:01 | disposition home or self-care (01) ==
LOC: EN 06:29 → AC 06:30
PROVIDERS: Anesthesiology; PCP Internal Medicine; Referring Provider Internal Medicine; Visit Provider Internal Medicine Gastroenterology
PROC: 0DJ08ZZ Inspection of Upper Intestinal Tract, Via Natural or Artificial Opening Endoscopic (ICD-10-PCS; CPT 43235; principal; 2022-01-29 07:25)
DX: K44.9 Diaphragmatic hernia without obstruction or gangrene (principal); K22.2 Esophageal obstruction; K63.89 Other specified diseases of intestine; K31.89 Other diseases of stomach and duodenum; K21.9 Gastro-esophageal reflux disease without esophagitis; I10 Essential (primary) hypertension; Z79.899 Other long term (current) drug therapy; Z87.891 Personal history of nicotine dependence
CPT/HCPCS: 43245; 43239; 81025; 88305; J7120; J2405

== ENCOUNTER → 2022-02-15 | Outpatient (CLI) | payer BC, SELFPAY ==
--- NOTE | 2022-02-15 12:43 | NM_ITS ---
CLINICAL: 56-year-old female with history of abdominal pain and clinical gastroparesis. SEMI-SOLID PHASE 99m Tc SULFUR COLLOID GASTRIC EMPTYING STUDY COMPARISON: None available FINDINGS: The patient was administered 1.0 mCi of 99m Tc sulfur colloid mixed with oatmeal and consumed per os. Image acquisitions in the anterior-posterior projections were obtained for 60 minutes. There is prompt visualization of the stomach. There is no gastroesophageal reflux identified. The T ? emptying was calculated to be 47.38 minutes, (Normal: 12-56 minutes). NM/Gastric Emptying Study IMPRESSION: 1. NORMAL 99m Tc sulfur colloid semi-solid phase (oatmeal) gastric emptying imaging examination. A. There is normal and preserved semi-solid phase gastric emptying compared to normal controls. (Major et al, J Nucl Med Tech 38: 186, 2010). Electronically Signed: Aman Nance, at 21:14 EST ,
== END | disposition home or self-care (01) ==
LOC: NM 12:42
PROVIDERS: PCP Internal Medicine; Referring Provider Internal Medicine Gastroenterology; Visit Provider Internal Medicine Gastroenterology
DX: R10.9 Unspecified abdominal pain (principal)
CPT/HCPCS: 78264; A9541

== ENCOUNTER → 2022-06-27 | Outpatient (CLI) | payer BC, SELFPAY ==
[2022-06-29 21:07] LABS: Alternaria alternata <0.10 kU/L (Class 0); Aspergillus fumigatus <0.10 kU/L (Class 0); Bahia Grass <0.10 kU/L (Class 0); Beef <0.10 kU/L (Class 0); Bermuda Grass <0.10 kU/L (Class 0); Bluegrass, Kentucky <0.10 kU/L (Class 0); Cat Hair/Dander, Standard <0.10 kU/L (Class 0); Cedar, Mountain <0.10 kU/L (Class 0); Cladosporium herbarum <0.10 kU/L (Class 0); Cockroach, American <0.10 kU/L (Class 0); Corn <0.10 kU/L (Class 0); D farinae Mite <0.10 kU/L (Class 0); D pteronyssinus <0.10 kU/L (Class 0); Dog Epithelia <0.10 kU/L (Class 0); Egg, Whole <0.10 kU/L (Class 0); Elm, American White <0.10 kU/L (Class 0); Hazelnut Tree <0.10 kU/L (Class 0); Hickory, White <0.10 kU/L (Class 0); Johnson Grass <0.10 kU/L (Class 0); Maple/Box Elder <0.10 kU/L (Class 0); Milk (Cow) <0.10 kU/L (Class 0); Mouse Urine <0.10 kU/L (Class 0); Mucor racemosus <0.10 kU/L (Class 0); Mugwort <0.10 kU/L (Class 0); Mulberry, White <0.10 kU/L (Class 0); Nettle <0.10 kU/L (Class 0); Oak, White <0.10 kU/L (Class 0); Peanut <0.10 kU/L (Class 0); Penicillium chrysogen <0.10 kU/L (Class 0); Pigweed, Rough <0.10 kU/L (Class 0); Plantain, English <0.10 kU/L (Class 0); Pork <0.10 kU/L (Class 0); Ragweed, Short/Common <0.10 kU/L (Class 0); Sheep Sorrel(Dock) <0.10 kU/L (Class 0); Soybean <0.10 kU/L (Class 0); Stemphylium herbarum <0.10 kU/L (Class 0); Sweet Gum <0.10 kU/L (Class 0); Sycamore, American <0.10 kU/L (Class 0); Wheat <0.10 kU/L (Class 0)
[2022-06-30 06:07] LABS: Alternaria tenuis <0.10 kU/L (Class 0); Ash, White <0.10 kU/L (Class 0); Aspergillus fumigatus <0.10 kU/L (Class 0); Bermuda Grass <0.10 kU/L (Class 0); Birch <0.10 kU/L (Class 0); Black Walnut <0.10 kU/L (Class 0); Cat Hair / Dander,Stand <0.10 kU/L (Class 0); Cedar, Mountain <0.10 kU/L (Class 0); Cladosporium herbarum <0.10 kU/L (Class 0); Cockroach, American <0.10 kU/L (Class 0); Cottonwood <0.10 kU/L (Class 0); D farinae Mite <0.10 kU/L (Class 0); D pteronyssinus <0.10 kU/L (Class 0); Dog Epithelia <0.10 kU/L (Class 0); Elm, American White <0.10 kU/L (Class 0); Immunoglobulin E 14 IU/mL (6-495); Maple/Box Elder <0.10 kU/L (Class 0); Mulberry, White <0.10 kU/L (Class 0); Oak, White <0.10 kU/L (Class 0); Pecan <0.10 kU/L (Class 0); Penicillium Notatum <0.10 kU/L (Class 0); Pigweed, Rough <0.10 kU/L (Class 0); Ragweed, Short/Common <0.10 kU/L (Class 0); Russian Thistle <0.10 kU/L (Class 0); Sheep Sorrel <0.10 kU/L (Class 0); Sycamore, American <0.10 kU/L (Class 0); Timothy Grass <0.10 kU/L (Class 0)
[2022-06-30 08:55] LABS: Chocolate <0.10 kU/L (Class 0)
[2022-06-30 09:00] LABS: Mouse Urine <0.10 kU/L (Class 0)
== END | disposition home or self-care (01) ==
LOC: LAB 11:51
PROVIDERS: PCP Internal Medicine; Referring Provider Internal Medicine Gastroenterology; Visit Provider Internal Medicine Gastroenterology
DX: K31.89 Other diseases of stomach and duodenum (principal); R43.8 Other disturbances of smell and taste; K31.1 Adult hypertrophic pyloric stenosis
CPT/HCPCS: 36415; 82785; 86003; 86005

== ENCOUNTER → 2022-11-05 | Outpatient (CLI) | payer BC, SELFPAY ==
[2022-11-05 11:55] LABS: Erythrocyte Sedimentation Rate 8 mm/hr (0-30)
[2022-11-05 12:24] LABS: CRP 7.85 mg/L (0.0-3.0)
[2022-11-05 12:25] LABS: Vitamin B12 613 pg/mL (211-911)
[2022-11-07 20:08] LABS: Lyme Scn Total Ab w/Rflx Negative (Negative); Vitamin B1, Thiamine 151.7 nmol/L (66.5-200.0)
[2022-11-09 02:07] LABS: Clam <0.10 kU/L (Class 0); Codfish <0.10 kU/L (Class 0); Corn <0.10 kU/L (Class 0); Egg, White <0.10 kU/L (Class 0); Milk (Cow) <0.10 kU/L (Class 0); Peanut <0.10 kU/L (Class 0); SCALLOP <0.10 kU/L (Class 0); SESAME SEED <0.10 kU/L (Class 0); Shrimp <0.10 kU/L (Class 0); Soybean <0.10 kU/L (Class 0); Walnut, (Food) <0.10 kU/L (Class 0); Wheat <0.10 kU/L (Class 0)
== END | disposition home or self-care (01) ==
LOC: LAB 11:35
PROVIDERS: PCP Internal Medicine; Referring Provider Internal Medicine Gastroenterology; Visit Provider Internal Medicine Gastroenterology
DX: I10 Essential (primary) hypertension (principal); R43.8 Other disturbances of smell and taste; R10.9 Unspecified abdominal pain
CPT/HCPCS: 36415; 82607; 82652; 84425; 85652; 86003; 86140; 86618

== ENCOUNTER 2022-11-27 11:20 | Day surgery (SDC) | payer BC, SELFPAY ==
--- NOTE | 2022-11-27 | IMM_PTH ---
PATIENT: KAREN FRAGA LOC: EN U#:[id number] AGE/SX: 57/F ROOM: RE11/27/[address]: Dr. Dallas Martinez DO : 1965 BED: DIS: 11/27/2022 SPEC #: [id number] RECD: 11/29/22 06:07 STATUS: ERIKA RELashon #: [id number] KEYANA: 11/27/22 00:[address]: Dallas Martinez DEPT: IMMUNOHISTOCHEMISTRY RECD BY: Cassy Avelar ENTERED: 11/29/22 06:08 SP TYPE: IMMUNO OTHR DR: Dr. Hilda Hatch MD Tissues: Gastric mucous membrane Procedures: H Pylori (initial) PHYSICIAN & INSTITUTION [place] [facility] [id number] SPECIMEN INFORMATION: Tissue Source: Gastric body Clinical Info: Bad taste in mouth, essential hypertension, abdominal pain Specimen Number: [id number] CPT code: 29805 METHODOLOGY: Deparaffinized sections of prefer/formalin-fixed tissue or PAP/DQ stained slides are incubated with monoclonal/polyclonal antibodies/oligonucleotide probes. Localization is made via biotin free immunoperoxidase method. Appropriate controls are performed and reacted as expected. Results on target cell population are indicated in the following table: RESULTS: ANTIBODY / CLONE RESULT H Pylori (polyclonal) negative These tests were developed and their performance characteristics determined by [facility]. They may not have been cleared or approved by the U.S. Food and Drug Administration. The FDA has determined that such clearance or approval is not necessary. The above immunohistochemical/dualISH markers are ordered and reviewed by the Pathologist. INTERPRETATION: Gastric body, biopsy: Negative for Helicobacter pylori organisms. SJ:charlotte 11/29/22
[2022-11-27 11:44] VITALS: BP 176/95; PULSE 56; RESP 16; TEMP 36.7; O2SAT 100; BMI 30.2
[2022-11-27] MEDS: Lactated Ringers 1,000 ML 15 ML IV (11:50)
--- NOTE | 2022-11-27 12:01 | PCM.HP.BLA ---
History and Physical Date of Admission: 11/27/22 KAREN FRAGA, is a 57 F who presents to the office today for Previous workup: ? Colonoscopy 2018 Dr. Vazquez reported as normal ? EGD [facility] Dr. Zamarripa 2019 minimal gastritis PCP attempted omeprazole 20mg QD (ineffective) and sucralfate 1g QID (ineffective). ? Biochemical workup H.Pylori IgG, CMP, CBC without pertinent abnormality. Stool studies with PCP calprotectin, occult WNL. *BGI established 01.22.22 with referral from PCP for evaluation of right sided abdominal nagging pain radiating into back with associated weight loss, odiferous diarrhea, heartburn, erosive taste in mouth, nausea and bloating; onset with some worsening in September when her father passed. Aggravated with PO intake with no alleviating factors noted. Denies cigarette smoking, rare alcohol intake, no blood thinners. Reports high anxiety and stress levels without intervention: father passed aware over summer 2021, mother with medical illness, runs [employer] that has been stressful. Biochemical workup CMP, Ferritin, LDH, CBC, JUAQUIN comp, ANCA, celiac, IgGAE, RAHEEM, IBD profile without pertinent abnormality. CRP H12.00, IgM H255, EBV IgG H418 Stool testing fecal fat, calprotectin, C.Difficile, enteric pathogen, lactoferrin, elastase WNL. ? Gastric emptying study 02.15.22 timed at 47.38 minutes (12-56). OV 11.2.22 with bad taste in mouth, nausea with intermittent emesis. Start hyoscyamine. OV 12.22 with continued bad taste in mouth, foul smelling stool, nausea without emesis, bloating. Start azithromycin. OV 06.27.23 continues to have bad taste in mouth; feels it may be worse postprandially, sometimes with abnormal breath odor. Feels azithromycin was mildly helpful, but symptoms did return. Denies feeling full early/quickly/too long. Bowels have been fluctuating with small and formed BM for several days and will then have large BM with occasional repeated stooling for several days. Stool caliber fluctuates, feels increased fiber creates better caliber of stool. ? Biochemical RAST, environmental allergens, IgE WNL. Contact 07.04.22 with result update. She has yet to start prednisone. Contact 08.29.22 with symptoms, Start Azithromycin OV 11.05. continues to have foul taste in her mouth, bloating and foul smelling stool with small caliber. ROS Const Constitutional: Positive for fatigue and headache(s) ENT ENT: Positive for headache(s); No difficulty swallowing Gastro GI: Positive for abdominal pain, bloating, change in bowel habits, heartburn, excessive flatus and nausea/dyspepsia; No belching, change in stool character, coffee ground emesis, constipation, cramping, diarrhea, difficulty swallowing, feeling full early, incontinent of stools, Vomiting blood/hematemesis, Blood in stool, loose stools, Black,tarry stools, pain with swallowing, vomiting or other Musc Musculoskeletal: Positive for muscle cramps, numbness, stiffness, tingling and Arthritis; No joint pain Skin Skin: No yellowing of the eye or itchy eyes Neuro Neurology: Positive for headache(s), numbness and tingling Psych Psychiatric: Positive for anxiety and Positive for depression Endo Endocrine: Positive for fatigue Aller/Imm Allergy/Immunologic: No itchy eyes Farhat/Lymp Hematologic/Lymphatic: No easy bleeding or easy bruising Exam Const General: cooperative and healthy appearing Orientation: alert, awake and oriented x3 Quality Reporting Tobacco Screening ([facility] 138) Smoking Status: Former smoker Assessment and Plan Assessment and Plan (1) Bad taste in mouth: Status: Chronic Plan: I gave her a trial of steroids but she did not take the medication . Her food allergy panel was normal. (2) Essential hypertension: Status: Chronic (3) Abdominal pain: Status: Chronic Qualifiers: Abdominal location: generalized Qualified Code(s): R10.84 - Generalized abdominal pain Plan: This is a new diagnosis for abdominal pain does include IBS, celiac disease, small bacterial overgrowth, exocrine pancreatic insufficiency due to the fact that she had diarrhea, bile reflux gastritis. She was ok with this plan. In the interim we will give her medicine to take 1 tablet p.o. every 6 hours as needed abdominal pain. She is using CBD for the nausea she was experiencing with the pain and she says that does take care of it but it typically tends to come back. Because of the pain is in the right lower quadrant and she is having pain in her rectum which I am assuming is proctalgia fugax we will perform colonoscopy to evaluate her lower GI tract. (4) Retained food in stomach: Status: Chronic Plan: 56-year-old female with nausea, abdominal pain, bad taste in mouth, bloating, retained food on EGD, pyloric stenosis that was dilatedon recent EGD. We reviewed all of the findings including benign biopsy results. She has a gastric emptying study and it was normal. She was treatmed for SIBO. She has questions about food sensitivity, I recommended she consider trying a low FODMAP elimination diet Taking care of her mom so she does have significant stress (5) Pyloric stenosis: Status: Acute Plan: This was dilated on recent EGD, continue omeprazole Orders: Orders Allergen, Food Profile Today I10 - Essential (primary) hypertension, R43.8 - Other disturbances of smell and taste Lyme Screen W/Reflex WB Today I10 - Essential (primary) hypertension, R10.9 - Unspecified abdominal pain Erythrocyte Sed Rate Today I10 - Essential (primary) hypertension, R10.9 - Unspecified abdominal pain CRP Today I10 - Essential (primary) hypertension, R10.9 - Unspecified abdominal pain Vitamin B1, Thiamine Today I10 - Essential (primary) hypertension, R10.9 - Unspecified abdominal pain VITAMIN B6 Today I10 - Essential (primary) hypertension, R10.9 - Unspecified abdominal pain Vitamin D 1,25-Dihydroxy Today I10 - Essential (primary) hypertension, R10.9 - Unspecified abdominal pain Vitamin B12 Today I10 - Essential (primary) hypertension, R43.8 - Other disturbances of smell and taste I have examined the patient and the H&P has been reviewed. There are no clinical changes since date of exam.
--- NOTE | 2022-11-27 12:30 | EGD_PTH ---
PATIENT: KAREN FRAGA LOC: EN U#:[id number] AGE/SX: 57/F ROOM: RE11/27/[address]: Dr. Dallas Martinez DO : 1965 BED: DIS: 11/27/2022 SPEC #: [id number] RECD: 11/27/22 14:14 STATUS: ERIKA CORRY #: [id number] KEYANA: 11/27/22 12:[address]: Dallas Martinez DEPT: SURGICAL PATHOLOGY RECD BY: Felicita Aguilar ENTERED: 11/28/22 09:48 SP TYPE: EGD BIOPSY OT DR: Dr. Hilda Hatch MD Tissues: A - Duodenum, NOS B - Gastric mucous membrane C - Esophagus, NOS D - Esophagus, NOS E - Ileum, NOS F - COLON BIOPSY Procedures: Special Stain Group II Surgery Specimen Level IV Alcian Blue/PAS (control) HEADER OPERATION: Colonoscopy, EGD with biopsy PRE-OP DIAGNOSIS: Bad taste in mouth, essential hypertension, abdominal pain TISSUE SUBMITTED: A. Duodenum, B. Gastric body, C. Distal esophagus, D. Random esophagus, E. Terminal ileum, F. random colonic MICROSCOPIC DIAGNOSIS A. Duodenum, biopsy: Fragments of duodenal mucosa with mild Brandyn gland hyperplasia. B. Gastric body, biopsy: Mild gastritis. See microscopic description and comment. C. Distal esophagus, biopsy: Fragments of gastroesophageal mucosa with moderate acute and chronic inflammation. Intestinal metaplasia (goblet cell metaplasia) not identified. See comment. D. Random esophagus, biopsy: Consistent with eosinophilic esophagitis. See comment. E. Terminal ileum, biopsy: Fragments of small intestinal mucosa, no pathologic diagnosis. F. colon, random biopsy: Fragments of colonic mucosa, no pathologic diagnosis. SJ: 11/29/2022 COMMENT B. The results of immunohistochemistry for Helicobacter pylori will be reported separately ([id number]). C. Alcian blue/PAS stain with matched control is used in the evaluation of the specimen. D. increased number of eosinophils (>15/high power field ) are noted consistent with eosinophilic esophagitis. MICROSCOPIC DESCRIPTION Slides are reviewed. The specimen shows fragments of gastric mucosa with chronic inflammatory cell infiltrates in the lamina propria consisting of lymphocytes and plasma cells, consistent with mild chronic gastritis. GROSS DESCRIPTION A. Received is one container labeled with the patient name and designated duodenum. The specimen consists of two irregular fragments of light fernando soft tissue that in aggregate measure 0.8 x 0.5 x 0.1 cm. The specimen is totally submitted in one cassette. B. Received is one container labeled with the patient name and designated gastric body. The specimen consists of multiple irregular fragments of light fernando soft tissue that in aggregate measure 0.8 x 0.6 x 0.1 cm. The specimen is totally submitted in one cassette. C. Received is one container labeled with the patient name and designated distal esophagus. The specimen consists of two irregular fragments of light fernando soft tissue that in aggregate measure 1.0 x 0.5 x 0.1 cm. The specimen is totally submitted in one cassette. D. Received is one container labeled with the patient name and designated random esophagus. The specimen consists of multiple irregular fragments of light fernando soft tissue that in aggregate measure 1.0 x 0.5 x 0.1 cm. The specimen is totally submitted in one cassette. E. Received is one container labeled with the patient name and designated terminal ileum. The specimen consists of multiple irregular fragments of light fernando soft tissue that in aggregate measure 1.0 x 0.5 x 0.1 cm. The specimen is totally submitted in one cassette. F. Received is one container labeled with the patient name and designated random colonic. The specimen consists of multiple irregular fragments of light fernando soft tissue that in aggregate measure 2.0 x 1.0 x 0.1 cm. The specimen is totally submitted in one cassette. / AM:charlotte 11/28/22 TC:2 CPT: 44297 x6, 64888
--- NOTE | 2022-11-27 13:11 | OP.CCLET_ITS ---
11/27/2022 Hilda Hatch [address] [place] [address] Re : Upper GI endoscopy procedure for Lauren Voss Dear Dr. Hatch This procedure was performed on Sunday, November 27, 2022. My impressions and recommendations are as follows: Impressions : - Esophageal mucosal changes consistent with eosinophilic esophagitis. - Moderate Schatzki ring. Dilated. - Chronic gastritis. Biopsied. - Duodenal erosions without bleeding. Biopsied. - Biopsies were taken with a cold forceps for evaluation of eosinophilic esophagitis. Recommendations : - Discharge patient to home. - Resume previous diet. - Continue present medications. - Await pathology results. My findings are described in the full procedure note, which is enclosed. If I can be of further assistance, please feel free to contact me at . Sincerely, Dallas Martinez, 11/27/2022 1:10:32 PM This report has been signed electronically.
--- NOTE | 2022-11-27 13:11 | OP.EGD_ITS ---
Patient Name: Lauren Voss Procedure Date: 11/27/2022 12:27 PM Date of : 1965 Age: 57 Procedure: Upper GI endoscopy Indications: Epigastric abdominal pain, Dysphagia Providers: Dallas Martinez DO Medicines: Monitored Anesthesia Care Patient Profile: This is a 57 year old female. Refer to note in patient chart for documentation of history and physical. Patient has symptoms of dysphagia with both liquids and solids. Complications: No immediate complications. Procedure: Pre-Anesthesia Assessment: - Prior to the procedure, a History and Physical was performed, and patient medications and allergies were reviewed. The risks and benefits of the procedure and the sedation options and risks were discussed with the patient. All questions were answered and informed consent was obtained. Patient identification and proposed procedure were verified by the physician. Mental Status Examination: normal. Prophylactic Antibiotics: The patient does not require prophylactic antibiotics. Prior Anticoagulants: The patient has taken no anticoagulant or antiplatelet agents. After reviewing the risks and benefits, the patient was deemed in satisfactory condition to undergo the procedure. The anesthesia plan was to use monitored anesthesia care (MAC). Immediately prior to administration of medications, the patient was re-assessed for adequacy to receive sedatives. The heart rate, respiratory rate, oxygen saturations, blood pressure, adequacy of pulmonary ventilation, and response to care were monitored throughout the procedure. The physical status of the patient was re-assessed after the procedure. After obtaining informed consent, the endoscope was passed under direct vision. Throughout the procedure, the patient's blood pressure, pulse, and oxygen saturations were monitored continuously. The colonoscope was introduced through the mouth, and advanced to the second part of duodenum. The upper GI endoscopy was accomplished without difficulty. The patient tolerated the procedure well. Scope In: 12:36:40 PM Scope Out: 12:44:31 PM Total Procedure Duration Time 0 hours 7 minutes 51 seconds Findings: Mucosal changes including ringed esophagus, feline appearance, longitudinal furrows, small-caliber esophagus and white plaques were found in the proximal esophagus, in the mid esophagus and in the distal esophagus. Biopsies were obtained from the proximal and distal esophagus with cold forceps for histology of suspected eosinophilic esophagitis. Verification of patient identification for the specimen was done. Estimated blood loss was minimal. A moderate Schatzki ring was found in the lower third of the esophagus. A guidewire was placed and the scope was withdrawn. Dilation was performed with a Savary dilator with no resistance at 51 Fr. The dilation site was examined and showed moderate mucosal disruption. Patchy mild inflammation characterized by congestion (edema), erosions and erythema was found in the gastric body. Biopsies were taken with a cold forceps for histology. Biopsies were taken with a cold forceps for Helicobacter pylori testing. Verification of patient identification for the specimen was done. Estimated blood loss was minimal. A few localized erosions without bleeding were found in the duodenal bulb. Biopsies were taken with a cold forceps for histology. Biopsies were taken with a cold forceps for Helicobacter pylori testing. Verification of patient identification for the specimen was done. Estimated blood loss was minimal. Impression: - Esophageal mucosal changes consistent with eosinophilic esophagitis. - Moderate Schatzki ring. Dilated. - Chronic gastritis. Biopsied. - Duodenal erosions without bleeding. Biopsied. - Biopsies were taken with a cold forceps for evaluation of eosinophilic esophagitis. Recommendation: - Discharge patient to home. - Resume previous diet. - Continue present medications. - Await pathology results. Procedure Code(s): --- Professional --- 28382, Esophagogastroduodenoscopy, flexible, transoral; with insertion of guide wire followed by passage of dilator(s) through esophagus over guide wire 90037, 59, Esophagogastroduodenoscopy, flexible, transoral; with biopsy, single or multiple CPT copyright 2021 [employer]. All rights reserved. The codes documented in this report are preliminary and upon invoice coder review may be revised to meet current compliance requirements. Dallas Martinez DO 11/27/2022 1:10:32 PM This report has been signed electronically. Number of Addenda: 0 Note Initiated On: 11/27/2022 12:27 PM
[2022-11-27 13:12] VITALS: BP 124/61; BP 176/95; PULSE 52; RESP 16; TEMP 35.9; O2SAT 99
--- NOTE | 2022-11-27 13:14 | OP.CCLET_ITS ---
11/27/2022 Hilda Hatch [address] [place] [address] Re : Colonoscopy procedure for Lauren Voss Dear Dr. Hatch This procedure was performed on Sunday, November 27, 2022. My impressions and recommendations are as follows: Impressions : - Congested mucosa in the recto-sigmoid colon, in the sigmoid colon, in the transverse colon and at the hepatic flexure. Biopsied. - The examined portion of the ileum was normal. Biopsied. Recommendations : - Discharge patient to home. - Resume previous diet. - Continue present medications. - Await pathology results. - Repeat colonoscopy in 5 years for surveillance. My findings are described in the full procedure note, which is enclosed. If I can be of further assistance, please feel free to contact me at . Sincerely, Dallas Martinez, 11/27/2022 1:13:38 PM This report has been signed electronically.
--- NOTE | 2022-11-27 13:14 | OP.COLON_ITS ---
Patient Name: Lauren Voss Procedure Date: 11/27/2022 12:45 PM Date of : 1965 Age: 57 Procedure: Colonoscopy Indications: Clinically significant diarrhea of unexplained origin Providers: Dallas Martinez DO Medicines: Monitored Anesthesia Care Patient Profile: This is a 57 year old female. Refer to note in patient chart for documentation of history and physical. Patient has symptoms of dysphagia with both liquids and solids. Last Colonoscopy: 5 years ago. Complications: No immediate complications. Procedure: Pre-Anesthesia Assessment: - Prior to the procedure, a History and Physical was performed, and patient medications and allergies were reviewed. The risks and benefits of the procedure and the sedation options and risks were discussed with the patient. All questions were answered and informed consent was obtained. Patient identification and proposed procedure were verified by the physician. Mental Status Examination: normal. Prophylactic Antibiotics: The patient does not require prophylactic antibiotics. Prior Anticoagulants: The patient has taken no anticoagulant or antiplatelet agents. After reviewing the risks and benefits, the patient was deemed in satisfactory condition to undergo the procedure. The anesthesia plan was to use monitored anesthesia care (MAC). Immediately prior to administration of medications, the patient was re-assessed for adequacy to receive sedatives. The heart rate, respiratory rate, oxygen saturations, blood pressure, adequacy of pulmonary ventilation, and response to care were monitored throughout the procedure. The physical status of the patient was re-assessed after the procedure. After I obtained informed consent, the scope was passed under direct vision. Throughout the procedure, the patient's blood pressure, pulse, and oxygen saturations were monitored continuously. The colonoscope was introduced through the anus and advanced to the terminal ileum. The colonoscopy was performed without difficulty. The patient tolerated the procedure well. The quality of the bowel preparation was good. The terminal ileum, ileocecal valve, appendiceal orifice, and rectum were photographed. Scope In: 12:46:35 PM Scope Withdrawal Time 0 hours 11 minutes 52 seconds Scope Out: 1:02:39 PM Total Procedure Duration Time 0 hours 16 minutes 4 seconds Findings: The perianal and digital rectal examinations were normal. An area of mildly congested mucosa was found in the recto-sigmoid colon, in the sigmoid colon, in the transverse colon and at the hepatic flexure. Biopsies were taken with a cold forceps for histology. Verification of patient identification for the specimen was done. Estimated blood loss was minimal. The terminal ileum appeared normal. Biopsies were taken with a cold forceps for histology. Verification of patient identification for the specimen was done. Estimated blood loss was minimal. Impression: - Congested mucosa in the recto-sigmoid colon, in the sigmoid colon, in the transverse colon and at the hepatic flexure. Biopsied. - The examined portion of the ileum was normal. Biopsied. Recommendation: - Discharge patient to home. - Resume previous diet. - Continue present medications. - Await pathology results. - Repeat colonoscopy in 5 years for surveillance. Procedure Code(s): --- Professional --- 23616, Colonoscopy, flexible; with biopsy, single or multiple CPT copyright 2021 [employer]. All rights reserved. The codes documented in this report are preliminary and upon clothing sorter review may be revised to meet current compliance requirements. Dallas Martinez DO 11/27/2022 1:13:38 PM This report has been signed electronically. Number of Addenda: 0 Note Initiated On: 11/27/2022 12:45 PM
[2022-11-27 13:15] VITALS: BP 131/63; BP 176/95; PULSE 52; RESP 16; O2SAT 99
[2022-11-27 13:20] VITALS: BP 138/65; BP 176/95; PULSE 50; RESP 16; O2SAT 99
[2022-11-27 13:25] VITALS: BP 149/82; BP 176/95; PULSE 51; RESP 16; TEMP -14.1; TEMP 6.7; O2SAT 98
[2022-11-27 13:46] VITALS: BP 176/95
== END 2022-11-27 14:09 | disposition home or self-care (01) ==
LOC: EN 11:21 → AC 11:31
PROVIDERS: PCP Internal Medicine; Referring Provider Internal Medicine; Visit Provider Internal Medicine Gastroenterology
PROC: 0DJD8ZZ Inspection of Lower Intestinal Tract, Via Natural or Artificial Opening Endoscopic (ICD-10-PCS; CPT 45378; principal; 2022-11-27 12:25)
DX: K29.50 Unspecified chronic gastritis without bleeding (principal); Z87.891 Personal history of nicotine dependence; I10 Essential (primary) hypertension; K31.1 Adult hypertrophic pyloric stenosis; R43.8 Other disturbances of smell and taste; K22.2 Esophageal obstruction; K26.9 Duodenal ulcer, unspecified as acute or chronic, without hemorrhage or perforation; K21.00 Gastro-esophageal reflux disease with esophagitis, without bleeding; K31.89 Other diseases of stomach and duodenum; Z79.899 Other long term (current) drug therapy; Z87.19 Personal history of other diseases of the digestive system; Z90.49 Acquired absence of other specified parts of digestive tract
CPT/HCPCS: 45380; 43239; 43248; 88305; 88313; 88342; J7120; J2405

== ENCOUNTER → 2023-05-21 | Outpatient (CLI) | payer BC, SELFPAY ==
--- NOTE | 2023-05-21 09:00 | RAD_ITS ---
STUDY: X-RAY - ABDOMEN/PELVIS REASON FOR EXAM: Female, 58 years old. Personal history of urinary calculi. TECHNIQUE: Single AP view of the abdomen / pelvis on [address] of the abdomen and pelvis dated 06/29/2017.. COMPARISON: None. FINDINGS: Normal bowel gas pattern with air seen to the rectum. Moderate amount of feces and gas obscure much of both renal outlines. No abnormal renal calcifications are identified. The visualized liver, spleen and kidneys are grossly normal in size and morphology. Normal soft tissue structures. Normal visualized osseous structures. RAD/Abdomen Single View IMPRESSION: No abnormality identified. Electronically Signed: Ethan Jacome MD at 9:20 EST ,
[2023-05-30 19:00] LABS: Source Not Provided
[2023-05-30 19:01] LABS: Size 6x4 mm
== END | disposition home or self-care (01) ==
PROVIDERS: PCP Internal Medicine; Referring Provider Urology; Visit Provider Urology
DX: Z87.442 Personal history of urinary calculi (principal); R10.9 Unspecified abdominal pain
CPT/HCPCS: 74018; 82360

== ENCOUNTER → 2024-04-23 | Outpatient (CLI) | payer BC, SELFPAY ==
[2024-04-23 15:17] LABS: Anion Gap 3 (5-15); BUN 20 mg/dL (7-18); BUN/Creat Ratio 22.5 RATIO (10-20); Calcium,Total 9.5 mg/dL (8.5-10.1); Chloride 105 mmol/L (98-107); Creatinine, Serum 0.89 mg/dL (0.55-1.02); EST Glomerular Filtration Rate 69 mL/min (>60); Est Glom Filt Rate - Afr Amer 84 mL/min (>60); Glucose 83 mg/dL (74-106); Potassium 4.6 mmol/L (3.5-5.1); Sodium Level 136 mmol/L (136-145)
== END | disposition home or self-care (01) ==
LOC: LAB 14:08
PROVIDERS: PCP Internal Medicine; Referring Provider Internal Medicine Cardiovascular Disease; Visit Provider Internal Medicine Cardiovascular Disease
DX: I10 Essential (primary) hypertension (principal)
CPT/HCPCS: 36415; 80048

== ENCOUNTER 2024-06-24 07:23 | Day surgery (SDC) | payer BC, SELFPAY ==
--- NOTE | 2024-06-22 16:41 | PAT.ANESEVAL ---
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 When Was Last Pacemaker Check QUESTION #4 FULL TEXT: You/Your Family Experience fever (hyperthermia) with Anesthesia Last Oral Intake Last Oral intake: Last Oral Intake NPO since Meds taken in AM with sips of water? 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 Female Yes 06/22/24 15:32 HX of Motion Sickness Yes 06/22/24 15:32 HX of N/V After Surgery Yes 06/22/24 15:32 Non-Smoker Yes 06/22/24 15:32 Duration of Surgery greater No 06/22/24 15:32 than 60 minutes Number of Risk Factors 4 06/22/24 15:32 PONV Score Severe Risk 06/22/24 15:32 Height & Weight Height & Weight: Anesthesia: Height & Weight Height 5 ft 5 in 04/23/24 08:57 Respiratory Assessment Respiratory Assessment - roofing machine operator: Respiratory Tract Infection Hx - roofing machine operator Hx Respiratory Tract Infection No 06/22/24 15:32 STOP Sleep Apnea STOP Sleep Apnea - roofing machine operator: STOP Sleep Apnea - roofing machine operator Hx Hypertension Yes: PER PT, NOT CONTROLLED 06/22/24 15:32 WITH MED; MEDS ADJUSTED IN 04/2024 Hx Sleep Apnea No 06/22/24 15:32 CPAP BIPAP Do you snore loudly (louder No 06/22/24 15:32 than talking or can be heard Do you often feel tired/ No 06/22/24 15:32 fatigued/ sleepy during daytime? Has anyone observed you stop No 06/22/24 15:32 breathing during sleep? STOP Results Negative 06/22/24 15:32 QUESTION #5 FULL TEXT : Do you snore loudly (louder than talking or can be heard through closed doors)? 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 Specify any problems Hx of Preganancy in last 3 No 06/22/24 15:32 Months Nurse Filling Out Transfusion MGRIVITALIY 06/22/24 15:32 & Questions: Date: 06/22/24 06/22/24 15:32 Time: 15:35 06/22/24 15:32 Patient unable to answer at this time (ie. confused, unrespo /Reproduction History /Reproductive History - roofing machine operator: /Reproductive Hx- roofing machine operator Hx Now No 06/22/24 15:32 Gestational Age (in weeks): EDC: Hx Hx Para Hx Section SAB No 06/22/24 15:32 PFSH Medical History (Updated 06/22/24 @ 15:44 by Tiffani Soares) Post-menopausal Dietary restriction Former smoker PONV (postoperative nausea and vomiting) Chronic cough History of Holter monitoring Wears glasses Alcohol use Arthritis Migraine headache Back pain Injury of head and neck History of diverticulitis Gastritis Leg cramps History of edema History of stress test Cardiology follow-up encounter History of echocardiogram Former tobacco use Facial paresthesia Diplopia HTN (hypertension) Anxiety GERD (gastroesophageal reflux disease) Diverticulosis Carpal tunnel syndrome, right History of kidney stones Essential hypertension Home Medications ?Medication ?Instructions ?Recorded ?Last Taken ?Type triamcinolone acetonide 55 mcg 1 spray intranasal PRN PRN 01/23/22 Unknown History nasal spray aerosol (Nasacort ALLERGIES Allergy) hydrocodone-acetaminophen 5-325mg 1 tab PO Q6H PRN pain 02/14/23 Unknown History 5mg-325mg lactobacillus combination no.9 4 4,000 mmu cells PO DAILY 02/14/23 Unknown History billion cell capsule (Adult 50 Plus Probiotic) celecoxib 100 mg capsule 100 mg PO BID 03/24/24 Unknown History losartan 100 mg tablet 100 mg PO QDAY #90 tabs 04/23/24 Unknown Rx metoprolol tartrate 50 mg tablet 50 mg PO BID #120 tabs 04/23/24 Unknown Rx CBD Oral (INFORMATIONAL USE 06/22/24 Unknown History ONLY-PT USES ORAL CBD) omeprazole 20 mg capsule,delayed 40 mg PO DAILY 06/22/24 Unknown History release Allergy/AdvReac Type Severity Reaction Status Date / Time doxycycline Allergy Severe Nausea/Vom/ Verified 06/22/24 15:27 Diarrhea nitrofurantoin (From Allergy Rash Verified 06/22/24 15:27 Macrobid) nitrofurantoin Allergy Rash Verified 06/22/24 15:27 macrocrystalline (From Macrobid) phenazopyridine (From Allergy Rash Verified 06/22/24 15:27 Pyridium) amlodipine AdvReac Intermediate dizziness Verified 06/22/24 15:27 hydrochlorothiazide AdvReac Intermediate Leg Cramps Verified 06/22/24 15:27 lisinopril AdvReac Mild Headache Verified 06/22/24 15:27 bupropion HCl (From AdvReac Nausea Verified 06/22/24 15:27 Wellbutrin) propoxyphene napsylate (From AdvReac Other Verified 06/22/24 15:27 Darvocet-N) Family History Mother Hypertension Osteoporosis Glaucoma Father Cancer basal cell and melonoma Hypertension Gout Brother Cancer Lymphoma Sister Cancer Uterine cancer Surgical History Hx of colonoscopy (~11/2022) History of esophagogastroduodenoscopy (EGD) (~11/2022) History of microdiscectomy (~01/2002) History of cholecystectomy Social History household members: spouse Smoking Status: Former smoker how long ago did patient quit smoking: Quit 2002, smoked age 16 until quit, 3-5 cig/day. alcohol intake: current alcohol intake frequency: holidays/special occasions only substance use type: does not use caffeine: Yes (Occasionally) Audit: Pertinent Findings Pertinent Findings EKG Perinent findings: November 14, 2021. Normal sinus rhythm. Nonspecific T wave abnormality. Stress test pertinent findings: September 04, 2019. Patient achieved a max workload of 10.1 METS negative for ischemia by EKG criteria. Echo (EF%) pertinent findings: November 15, 2021. Ejection fraction is 65%. There is no aortic stenosis noted. Consult pertinent findings: April 23, 2024. Dr. Hickman. 1. Hypertension-adjust blood pressure meds and doses to minimize side effects. 2. Palpitations?chronic. Appears stable. Additional pertinent findings: Holter monitor. July 23, 2019. Predominantly normal sinus rhythm. No atrial fibrillation noted. No supraventricular runs. 3 PVCs. No runs noted. Patient kept a diary with multiple feelings of fluttering which did not correlate with the scan. And 2 symptoms of chest pain which did not correlate with scan. Recommendation Anesthesia Recommendation Anesthesia recommendation: OPTIMIZED for anesthesia
[2024-06-24] VITALS (8 sets, daily range): BP systolic 127–195; BP diastolic 65–92; PULSE 55–70; RESP 16–20; TEMP 36.3–36.5; O2SAT 97–100; BMI 31.8
--- NOTE | 2024-06-24 07:44 | PRE.ANES_ITS ---
ASA Classification* ASA Classification ASA Classification: 2 Assessment & Plan Anesthesia* Anesthesia Assessment Anesthesia Assessment: Discussed sedation and/or anesthesia options, risks, benefits, and alternatives with patient/parents/legal guardian/POA. Questions invited. The patient/parents/legal guardian/POA seems to understand and agrees to proceed with anesthesia plan. Reviewed the physical assessment, medical history, allergy history and patient home medications list prior to surgery/procedure/anesthetic and documented any changes. Performed airway and anesthesia risk assessments. Anesthesia Type Anesthesia Type: MAC History Source History Obtained from:: Patient and Chart Anesthesia Focused Assessment* Temperature: 97.7 F Pulse Rate: 67 Blood Pressure: 195/92 Respiratory Rate: 16 Pulse Ox: 99 Oxygen Delivery Method: Room Air Airway Assessment Mouth opens: >3 cm Mallampati Score: II Teeth Condition: Intact Neck Range of motion (ROM): Full ROM Focused Labs Anesthesia Preop lab: CBC WBC 7.5 K/mm3 (4.4-11.0) 01/22/22 11:53 01/22/22 RBC 4.77 M/mm3 (4.2-5.4) 01/22/22 11:53 01/22/22 Hgb 13.7 g/dL (12.0-15.0) 01/22/22 11:53 01/22/22 Hct 42.7 % (37-47) 01/22/22 11:53 01/22/22 Plt Count 247 K/mm3 (150-450) 01/22/22 11:53 01/22/22 CHEMISTRY Potassium 4.6 mmol/L (3.5-5.1) 04/23/24 14:23 04/23/24 Sodium 136 mmol/L (136-145) 04/23/24 14:23 04/23/24 Magnesium 2.2 mg/dL (1.6-2.6) 11/14/21 14:22 11/14/21 Phosphorus 3.4 mg/dL (2.5-4.9) 11/16/21 04:50 11/16/21 BUN 20 mg/dL (7-18) H 04/23/24 14:23 04/23/24 Creatinine 0.89 mg/dL (0.55-1.02) 04/23/24 14:23 04/23/24 Glucose 83 mg/dL (74-106) 04/23/24 14:23 04/23/24 POC Glucose 139 mg/dL (74-106) H 11/14/21 14:24 11/14/21 TSH 0.65 uIU/mL (0.358-3.74) 11/15/21 05:29 COAG PT 12.2 SECONDS (11.7-14.9) 11/14/21 14:22 Urine Test Negative Negative 01/29/22 06:40 01/29/22 Pre-Assessment Diagnosis/Proposed Procedure Planned Operative Procedure(s): EGD Anesthesia History 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 When Was Last Pacemaker Check QUESTION #4 FULL TEXT: You/Your Family Experience fever (hyperthermia) with Anesthesia Any additional information?: No Last Oral Intake Last Oral intake: Last Oral Intake NPO since 20:00 06/24/24 07:32 Meds taken in AM with sips of Yes 06/24/24 07:32 water? 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 Female Yes 06/22/24 15:32 HX of Motion Sickness Yes 06/22/24 15:32 HX of N/V After Surgery Yes 06/22/24 15:32 Non-Smoker Yes 06/22/24 15:32 Duration of Surgery greater No 06/22/24 15:32 than 60 minutes Number of Risk Factors 4 06/22/24 15:32 PONV Score Severe Risk 06/22/24 15:32 Any additional information?: No Height & Weight Height & Weight: Anesthesia: Height & Weight Height 5 ft 5 in 06/24/24 07:32 Weight: 87 kg 06/24/24 07:32 Body Mass Index (BMI) 31.8 06/24/24 07:32 Respiratory Assessment Respiratory Assessment - set decorator: Respiratory Tract Infection Hx - set decorator Hx Respiratory Tract Infection No 06/22/24 15:32 Any additional information?: No STOP Sleep Apnea STOP Sleep Apnea - set decorator: STOP Sleep Apnea - set decorator Hx Hypertension Yes: PER PT, NOT CONTROLLED 06/22/24 15:32 WITH MED; MEDS ADJUSTED IN 04/2024 Hx Sleep Apnea No 06/22/24 15:32 CPAP BIPAP Do you snore loudly (louder No 06/22/24 15:32 than talking or can be heard Do you often feel tired/ No 06/22/24 15:32 fatigued/ sleepy during daytime? Has anyone observed you stop No 06/22/24 15:32 breathing during sleep? STOP Results Negative 06/22/24 15:32 QUESTION #5 FULL TEXT : Do you snore loudly (louder than talking or can be heard through closed doors)? 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 Specify any problems Hx of Preganancy in last 3 No 06/22/24 15:32 Months Nurse Filling Out Transfusion MGRIFFITH 06/22/24 15:32 & Questions: Date: 06/22/24 06/22/24 15:32 Time: 15:35 06/22/24 15:32 Patient unable to answer at this time (ie. confused, unrespo Any additional information?: No /Reproduction History /Reproductive History - set decorator: /Reproductive Hx- set decorator Hx Now No 06/22/24 15:32 Gestational Age (in weeks): EDC: Hx Hx Para Hx Section SAB No 06/22/24 15:32 Any additional information?: No PFSH Medical History (Updated 06/22/24 @ 15:44 by Tiffani Soares) Post-menopausal Dietary restriction Former smoker PONV (postoperative nausea and vomiting) Chronic cough History of Holter monitoring Wears glasses Alcohol use Arthritis Migraine headache Back pain Injury of head and neck History of diverticulitis Gastritis Leg cramps History of edema History of stress test Cardiology follow-up encounter History of echocardiogram Former tobacco use Facial paresthesia Diplopia HTN (hypertension) Anxiety GERD (gastroesophageal reflux disease) Diverticulosis Carpal tunnel syndrome, right History of kidney stones Essential hypertension Home Medications ?Medication ?Instructions ?Recorded ?Last Taken ?Type triamcinolone acetonide 55 mcg 1 spray intranasal PRN PRN 01/23/22 06/23/24 History nasal spray aerosol (Nasacort ALLERGIES Allergy) hydrocodone-acetaminophen 5-325mg 1 tab PO Q6H PRN willard n 02/14/23 Unknown History 5mg-325mg lactobacillus combination no.9 4 4,000 mmu cells PO DA FUENTES 02/14/23 Unknown History billion cell capsule (Adult 50 Plus Probiotic) celecoxib 100 mg capsule 100 mg PO BID 03/24/24 Unkno wn History losartan 100 mg tablet 100 mg PO QDAY #90 tabs 04/0806/24/24 Rx metoprolol tartrate 50 mg tablet 50 mg PO BID #120 tab s 04/23/24 06/24/24 Rx CBD Oral (INFORMATIONAL USE 06/22/24 Unknown Histo ry ONLY-PT USES ORAL CBD) omeprazole 20 mg capsule,delayed 40 mg PO DAILY 06/23/24 History release Allergy/AdvReac Type Severity Reaction Status Date / Time doxycycline Allergy Severe Nausea/Vom/ Verified 06/24/24 07:30 Diarrhea nitrofurantoin (From Allergy Rash Verified 06/24/24 07:30 Macrobid) nitrofurantoin Allergy Rash Verified 06/24/24 07:30 macrocrystalline (From Macrobid) phenazopyridine (From Allergy Rash Verified 06/24/24 07:30 Pyridium) amlodipine AdvReac Intermediate dizziness Verified 06/24/24 07:30 hydrochlorothiazide AdvReac Intermediate Leg Cramps Verified 06/24/24 07:30 lisinopril AdvReac Mild Headache Verified 06/24/24 07:30 bupropion HCl (From AdvReac Nausea Verified 06/24/24 07:30 Wellbutrin) propoxyphene napsylate (From AdvReac Other Verified 06/24/24 07:30 Darvocet-N) Family History Mother Hypertension Osteoporosis Glaucoma Father Cancer basal cell and melonoma Hypertension Gout Brother Cancer Lymphoma Sister Cancer Uterine cancer Surgical History Hx of colonoscopy (~11/2022) History of esophagogastroduodenoscopy (EGD) (~11/2022) History of microdiscectomy (~01/2002) History of cholecystectomy Social History household members: spouse Smoking Status: Former smoker how long ago did patient quit smoking: Quit 2002, smoked age 16 until quit, 3-5 cig/day. alcohol intake: current alcohol intake frequency: holidays/special occasions only substance use type: does not use caffeine: Yes (Occasionally) Review of Systems (Anesthesia) ROS Narrative System reviewed and no additional complaints, except as documented. Review of Systems ROS Unobtainable: Denies due to encephalopathy, due to endotracheal tube, due to mental condition, due to mental status or other Constitutional Constitutional: Denies change in weight, fever(s), snoring or stops breathing during sleep Eyes Eyes: Denies irritation, itchy eyes or requires corrective lenses Gastrointestinal Gastrointestinal: Reports heartburn and nausea Musculoskeletal Musculoskeletal: Denies muscle weakness or neck pain Integumentary Integumentary: Denies rash, sores, unusual bruising or wounds Neurologic Neurologic: Denies abnormal movements, abnormal speech, behavior changes, confusion, restless legs or seizures Psychiatric Psychiatric: Denies abnormal sleep pattern, anxiety or confusion Hematologic/Lymphatic Hematologic/Lymphatic: Denies easy bleeding or easy bruising Allergic/Immunologic Allergic/Immunologic: Denies asthma Physical Exam Narrative patient requesting zofran Const alert, oriented x3 and average body habitus Orientation / Consciousness: awake Nutritional Appearance: obese HEENT dentition normal Neck full ROM General: normal visual inspection and trachea midline Resp normal respiratory effort, normal air movement and clear to auscultation bilaterally Auscultation: clear to auscultation bilaterally Cardio regular rate, regular rhythm, no murmurs and diaphoretic GI GI Narrative: Nausea Back/Spine normal ROM and thoraco-lumbar ROM normal Extremity full ROM Skin Rashes: no rashes Neuro oriented x3 and moves all extremities
--- NOTE | 2024-06-24 08:09 | PCM.HP.STD ---
HPI - General General Date of Admission: 06/24/24 Date of Service: 06/24/24 Chief Complaint: abdominal pain and eosinophilic esophagitis HPI Narrative KAREN FRAGA, is a 59 F who presents KAREN FRAGA, is a 58 F who presents to the office today for follow up. Previous workup: ? Colonoscopy 2018 Dr. Vazquez reported as normal ? EGD [facility] Dr. Zamarripa 2019 minimal gastritis PCP attempted omeprazole 20mg QD (ineffective) and sucralfate 1g QID (ineffective). ? Biochemical workup H.Pylori IgG, CMP, CBC without pertinent abnormality. Stool studies with PCP calprotectin, occult WNL. *BGI established 01.22.22 with referral from PCP for evaluation of right sided abdominal nagging pain radiating into back with associated weight loss, odiferous diarrhea, heartburn, erosive taste in mouth, nausea and bloating; onset with some worsening in September when her father passed. Aggravated with PO intake with no alleviating factors noted. Denies cigarette smoking, rare alcohol intake, no blood thinners. 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 Biochemical workup CMP, Ferritin, LDH, CBC, JUAQUIN comp, ANCA, celiac, IgGAE, RAHEEM, IBD profile without pertinent abnormality. CRP H12.00, IgM H255, EBV IgG H418 Stool testing fecal fat, calprotectin, C.Difficile, enteric pathogen, lactoferrin, elastase WNL. EGD 01.29.22 small hiatal hernia; pyloric stenosis, balloon dilator 20mm; duodenitis. ? Gastric emptying study 02.15.22 timed at 47.38 minutes (12-56). OV 11..22 with bad taste in mouth, nausea with intermittent emesis. Start hyoscyamine. OV 04.04. with continued bad taste in mouth, foul smelling stool, nausea without emesis, bloating. Start azithromycin. OV 06.27.23 continues to have bad taste in mouth; feels it may be worse postprandially, sometimes with abnormal breath odor. Feels azithromycin was mildly helpful, but symptoms did return. Denies feeling full early/quickly/too long. Bowels have been fluctuating with small and formed BM for several days and will then have large BM with occasional repeated stooling for several days. Stool caliber fluctuates, feels increased fiber creates better caliber of stool. ? Biochemical RAST, environmental allergens, IgE WNL. Contact 07.04.22 with result update. She has yet to start prednisone. Contact 08.29.22 with symptoms, Start Azithromycin OV 7. continues to have foul taste in her mouth, bloating and foul smelling stool with small caliber. ? Biochemical ESR, B1, B12, D1,25, RAST, lyme without abnormality. ? CRP H7.85 EGD and colonoscopy 11.27.22 EGD mucosal changes of EOE, path confirmed >15/field; moderate Schatzki ring, Savary 51F; gastritis; duodenitis, Brandyn gland hyperplasia. H.Pylori neg Colonoscopy congested mucosa. Contact 12.13.22 recommending use of PPI and digestive enzymes OV 04.19.23 reports she continues to have foul taste in mouth, bloating and foul smelling stools. She did not start digestive enzymes; continues with PPI and probiotic. Denies cigarettes, marijuana use; rare alcohol use. Diet is not restricted. OV 6 pt reports feeling well overall without GI symptoms of concern at this time. Pt reports bloating after eating pasta. Is wondering what type of protein shakes she should be drinking to avoid issues with kidney stones. Continues with omeprazole. OV 03.24.24 pt reports that she is feeling well overall. Notes occasional bloating after eating. Reports she tried AG1 super greens, but was unable to tolerate the taste, is looking for recommendations on what she can mix it with to make it taste better. [facility] Medical History Post-menopausal Dietary restriction Former smoker PONV (postoperative nausea and vomiting) Chronic cough History of Holter monitoring Wears glasses Alcohol use Arthritis Migraine headache Back pain Injury of head and neck History of diverticulitis Gastritis Leg cramps History of edema History of stress test Cardiology follow-up encounter History of echocardiogram Former tobacco use Facial paresthesia Diplopia HTN (hypertension) Anxiety GERD (gastroesophageal reflux disease) Diverticulosis Carpal tunnel syndrome, right History of kidney stones Essential hypertension Home Medications ?Medication ?Instructions ?Recorded ?Last Taken ?Type triamcinolone acetonide 55 mcg 1 spray intranasal PRN PRN 01/23/22 06/23/24 History nasal spray aerosol (Nasacort ALLERGIES Allergy) hydrocodone-acetaminophen 5-325mg 1 tab PO Q6H PRN pain 02/14/23 Unknown History 5mg-325mg lactobacillus combination no.9 4 4,000 mmu cells PO DAILY 02/14/23 Unknown History billion cell capsule (Adult 50 Plus Probiotic) celecoxib 100 mg capsule 100 mg PO BID 03/24/24 Unknown History losartan 100 mg tablet 100 mg PO QDAY #90 tabs 04/23/24 06/24/24 Rx metoprolol tartrate 50 mg tablet 50 mg PO BID #120 tabs 04/23/24 06/24/24 Rx CBD Oral (INFORMATIONAL USE 06/22/24 Unknown History ONLY-PT USES ORAL CBD) omeprazole 20 mg capsule,delayed 40 mg PO DAILY 06/22/24 06/23/24 History release Allergy/AdvReac Type Severity Reaction Status Date / Time doxycycline Allergy Severe Nausea/Vom/ Verified 06/24/24 07:30 Diarrhea nitrofurantoin (From Allergy Rash Verified 06/24/24 07:30 Macrobid) nitrofurantoin Allergy Rash Verified 06/24/24 07:30 macrocrystalline (From Macrobid) phenazopyridine (From Allergy Rash Verified 06/24/24 07:30 Pyridium) amlodipine AdvReac Intermediate dizziness Verified 06/24/24 07:30 hydrochlorothiazide AdvReac Intermediate Leg Cramps Verified 06/24/24 07:30 lisinopril AdvReac Mild Headache Verified 06/24/24 07:30 bupropion HCl (From AdvReac Nausea Verified 06/24/24 07:30 Wellbutrin) propoxyphene napsylate (From AdvReac Other Verified 06/24/24 07:30 Darvocet-N) Family History Mother Hypertension Osteoporosis Glaucoma Father Cancer basal cell and melonoma Hypertension Gout Brother Cancer Lymphoma Sister Cancer Uterine cancer Surgical History Hx of colonoscopy (~11/2022) History of esophagogastroduodenoscopy (EGD) (~11/2022) History of microdiscectomy (~01/2002) History of cholecystectomy Social History household members: spouse Smoking Status: Former smoker how long ago did patient quit smoking: Quit 2002, smoked age 16 until quit, 3-5 cig/day. alcohol intake: current alcohol intake frequency: holidays/special occasions only substance use type: does not use caffeine: Yes (Occasionally) Vital Signs Vital Signs Vital Signs: 06/24/24 07:32 06/24/24 07:32 06/24/24 07:54 Temperature 97.7 F L 97.7 F L Temperature Source Temporal Pulse Rate 67 67 Respiratory Rate 16 16 Respiratory Pattern Normal Blood Pressure 195/92 H 195/92 H Blood Pressure Mean 126 Blood Pressure Source Monitor Blood Pressure Position Sitting Blood Pressure Location Left Arm Pulse Ox 99 99 Oxygen Delivery Method Room Air Room Air Weight Weight: 191 lb 12.835 oz Body Mass Index (BMI) 31.8 Physical Exam Const alert, oriented x3, no apparent distress and healthy appearing General Appearance: cooperative GI normal to inspection, nondistended, normoactive bowel sounds, soft to palpation, non-tender and non-distended Percussion: normal to percussion Rectal Exam: deferred Assessment & Plan Assessment/Plan (1) Eosinophilic esophagitis: (2) Pyloric stenosis: (3) Abdominal pain: QUALIFIERS: Abdominal location: generalized Qualified Code(s): R10.84 - Generalized abdominal pain PLAN: Assessment and Plan Assessment and Plan (1) Eosinophilic esophagitis: Status: Chronic Plan: She is on 20 mg omeprazole p.o. twice daily which is the first-line treatment for eosinophilic esophagitis and doing very well. If she wanted to get off of this medicine she would have to go on Dupixent to prevent recurrence of esophageal dysphagia. (2) Retained food in stomach: Status: Chronic Plan: 56-year-old female with nausea, abdominal pain, bad taste in mouth, bloating, retained food on EGD, pyloric stenosis that was dilated on recent EGD. We reviewed all of the findings including benign biopsy results. She has a gastric emptying study and it was normal. She was treatmed for SIBO with Xifaxan therapy. She did not notice a great difference in her bloating. I suspect that her retained food in her stomach may have been medication side effect. She is on clonidine and metoprolol that can cause some delayed gastric emptying as any other blood pressure or pain medicine can do. I am not suggesting that she stop her blood pressure medicines but I think we should really concentrate on weight loss for her as it seems like she is continuing to gain weight and she attributes this to a lot of her symptoms. She has questions about food sensitivity, I recommended she consider trying a low FODMAP elimination diet. Also ,taking care of her mom so she does have significant stress. She is working on this. Will gave her a short course of Xifaxan therapy x 2. She did well with that but we cannot continue that due to the cost of the medication. (3) Pyloric stenosis: Status: Resolved Plan: This was dilated on recent EGD, continue omeprazole (4) Abdominal pain: Status: Chronic Qualifiers: Abdominal location: generalized Qualified Code(s): R10.84 - Generalized abdominal pain Plan: This is a new diagnosis for abdominal pain does include IBS, celiac disease, small bacterial overgrowth, exocrine pancreatic insufficiency due to the fact that she had diarrhea, bile reflux gastritis. She was ok with this plan. In the interim we will give her medicine to take 1 tablet p.o. every 6 hours as needed abdominal pain. She is using CBD for the nausea she was experiencing with the pain and she says that does take care of it but it typically tends to come back. I also recommended athletic greens to her plus teaspoon of cinnamon and chromium twice a day. She did not like the taste of the left [place] so I told her she could add Crystal light. The only problem with her administration of cream that he vegetables is that she has had kidney stones in the past that were secondary to calcium oxalate. She does not take any vitamin C or anything else that may contribute to acidification of her urine. (5) Bad taste in mouth: Status: Chronic Plan: I gave her a trial of steroids but she did not take the medication . Her food allergy panel was normal.
--- NOTE | 2024-06-24 08:15 | EGD_PTH ---
PATIENT: KAREN FRAGA LOC: EN U#:[id number] AGE/SX: 59/F ROOM: RE06/24/[address]: Dr. Dallas Martinez DO : 1965 BED: DIS: 06/24/2024 SPEC #: [id number] RECD: 06/24/24 10:29 STATUS: ERIKA RELashon #: [id number] KEYANA: 06/24/24 08:[address]: Dallas Martinez DEPT: SURGICAL PATHOLOGY RECD BY: Jony Madison ENTERED: 06/24/24 10:30 SP TYPE: EGD BIOPSY PIERO DR: Dr. Hilda Hatch MD Tissues: A - Gastric mucous membrane B - Duodenum, NOS Procedures: Immunohistochemical Stains Surgery Specimen Level IV HEADER OPERATION: EGD with biopsy PRE-OP DIAGNOSIS: Eosinophilic esophagus pyloric stenosis TISSUE SUBMITTED: A- Gastric antrum biopsy, B- Duodenum biopsy MICROSCOPIC DIAGNOSIS A. Gastric antrum, biopsy:Oxyntic mucosaNo gastritis or crypt abscessesAn immunohistochemical stain with appropriate controls for Helicobacter pylori organisms is negative.B. Duodenum, biopsy:Duodenal mucosa with no histopathologic abnormalityKo Webb MD, 06/29/2024 MICROSCOPIC DESCRIPTION Slides are reviewed. These tests were developed and their performance characteristics determined by [facility]. They may not have been cleared or approved by the U.S. Food and Drug Administration. The FDA has determined that such clearance or approval is not necessary. The above immunohistochemical/dualISH markers are ordered and reviewed by the Pathologist. GROSS DESCRIPTION A. Received in fixative is one container labeled with the patient's name and designated Gastric antrum biopsy. The specimen consists of two irregular fragments of light fernando soft tissue that in aggregate measure 1.6 x 0.2 x 0.2 cm. The specimen is totally submitted in one cassette. B. Received in fixative is one container labeled with the patient's name and designated Duodenum biopsy. The specimen consists of two irregular fragments of light fernando soft tissue that in aggregate measure 0.9 x 0.3 x 0.2 cm. The specimen is totally submitted in one cassette. 06/24/2024 CPT:54472s6 ,80642, TC:4
--- NOTE | 2024-06-24 08:38 | PCM.POST.ANE ---
Anesthesia: Postop Eval I Current Vital Signs Temperature: 97.4 F Pulse Rate: 58 Blood Pressure: 127/65 Respiratory Rate: 20 Pulse Ox: 100 Oxygen Delivery Method: Nasal Cannula Oxygen Flow Rate (L/min): 2 Assessment Airway patent: Yes Spontaneous unlabored respirations: Yes Mental status: Awake nausea: No Vomiting: No Anesthesia Complication: No Fluid Hydration Crystalloid volume administer (ml): 20 Total IV fluid infused: 20 Progress Note Anesthesia document: Postop Eval 1 completed: Yes
--- NOTE | 2024-06-24 08:42 | OP.EGD_ITS ---
Patient Name: Lauren Voss Procedure Date: 06/24/2024 8:14 AM Date of : 1965 Age: 59 Procedure: Upper GI endoscopy Indications: Epigastric abdominal pain Providers: Dallas Martinez DO Referring MD: Hilda Hatch Medicines: Monitored Anesthesia Care Patient Profile: This is a 59 year old female. Refer to note in patient chart for documentation of history and physical. Patient has symptoms of chronic epigastric abdominal pain. Complications: No immediate complications. Procedure: Pre-Anesthesia Assessment: - Prior to the procedure, a History and Physical was performed, and patient medications and allergies were reviewed. The patient is competent. The risks and benefits of the procedure and the sedation options and risks were discussed with the patient. All questions were answered and informed consent was obtained. Patient identification and proposed procedure were verified by the physician in the pre-procedure area. Mental Status Examination: alert and oriented. Airway Examination: normal oropharyngeal airway and neck mobility. Respiratory Examination: clear to auscultation. CV Examination: normal. Prophylactic Antibiotics: The patient does not require prophylactic antibiotics. Prior Anticoagulants: The patient has taken no anticoagulant or antiplatelet agents except for NSAID medication. ASA Grade Assessment: II - A patient with mild systemic disease. After reviewing the risks and benefits, the patient was deemed in satisfactory condition to undergo the procedure. The anesthesia plan was to use monitored anesthesia care (MAC). Immediately prior to administration of medications, the patient was re-assessed for adequacy to receive sedatives. The heart rate, respiratory rate, oxygen saturations, blood pressure, adequacy of pulmonary ventilation, and response to care were monitored throughout the procedure. The physical status of the patient was re-assessed after the procedure. After obtaining informed consent, the endoscope was passed under direct vision. Throughout the procedure, the patient's blood pressure, pulse, and oxygen saturations were monitored continuously. The Endoscope was introduced through the mouth, and advanced to the second part of duodenum. The upper GI endoscopy was accomplished without difficulty. The patient tolerated the procedure well. Scope In: 8:25:09 AM Scope Out: 8:31:08 AM Total Procedure Duration Time 0 hours 5 minutes 59 seconds Findings: No gross lesions were noted in the entire esophagus. A small hiatal hernia was present. Patchy moderate inflammation characterized by congestion (edema), erosions and erythema was found in the stomach. Biopsies were taken with a cold forceps for histology. Biopsies were taken with a cold forceps for Helicobacter pylori testing. Verification of patient identification for the specimen was done. Estimated blood loss was minimal. Patchy mild inflammation characterized by erythema was found in the duodenal bulb. Biopsies were taken with a cold forceps for histology. Verification of patient identification for the specimen was done. Estimated blood loss was minimal. Impression: - No gross lesions in the entire esophagus. - Small hiatal hernia. - Bile gastritis. Biopsied. - Duodenitis. Biopsied. Recommendation: - Discharge patient to home. - Resume previous diet. - Continue present medications. - Await pathology results. Procedure Code(s): --- Professional --- 06380, Esophagogastroduodenoscopy, flexible, transoral; with biopsy, single or multiple CPT copyright 2021 [employer]. All rights reserved. The codes documented in this report are preliminary and upon regional climate change analyst review may be revised to meet current compliance requirements. Dallas Martinez DO 06/24/2024 8:42:01 AM This report has been signed electronically. Number of Addenda: 0 Note Initiated On: 06/24/2024 8:14 AM
--- NOTE | 2024-06-24 08:42 | OP.CCLET_ITS ---
06/24/2024 Hilda Hatch [address] [place] [address] Re : Upper GI endoscopy procedure for Lauren Voss Dear Dr. Hatch This procedure was performed on Monday, June 24, 2024. My impressions and recommendations are as follows: Impressions : - No gross lesions in the entire esophagus. - Small hiatal hernia. - Bile gastritis. Biopsied. - Duodenitis. Biopsied. Recommendations : - Discharge patient to home. - Resume previous diet. - Continue present medications. - Await pathology results. My findings are described in the full procedure note, which is enclosed. If I can be of further assistance, please feel free to contact me at . Sincerely, Dallas Martinez, 06/24/2024 8:42:01 AM This report has been signed electronically.
--- NOTE | 2024-06-24 13:29 | POSTOPAN2_ITS ---
Anesthesia Postop Eval I Sum Postop Eval Completion status Anesthesia document: Postop Eval 1 completed: Yes Anesthesia Postop Eval I Summary Anesthesia Postop Eval I Summary: Anesthesia Postop Eval I: Assessment Summary Airway patent Yes 06/24/24 08:39 SERVER SUPPORT [email or web address] Spontaneous unlabored Yes 06/24/24 08:39 SERVER SUPPORT [email or web address] respirations Mental status Awake 06/24/24 08:39 SERVER SUPPORT [email or web address] nausea No 06/24/24 08:39 SERVER SUPPORT [email or web address] Vomiting No 06/24/24 08:39 SERVER SUPPORT [email or web address] Anesthesia Postop Eval I: Fluid Summary Crystalloid volume administer 20 06/24/24 08:39 SERVER SUPPORT [email or web address] (ml) Colloids volume administered ( ml) Blood Product volume administered (ml) Total IV fluid infused 20 06/24/24 08:39 SERVER SUPPORT [email or web address] Anesthesia Postop Eval I: Summary Notes Anesthesia Complication No 06/24/24 08:39 SERVER SUPPORT [email or web address] Anesthesia Complication Comment: Post-operative progress note Anesthesia: Postop Eval II Evaluation Mental status: Awake Pain Level: 0 nausea: No Vomiting: No
--- NOTE | 2024-06-24 13:29 | PCM.POSTANE2 ---
Anesthesia Postop Eval I Sum Postop Eval Completion status Anesthesia document: Postop Eval 1 completed: Yes Anesthesia Postop Eval I Summary Anesthesia Postop Eval I Summary: Anesthesia Postop Eval I: Assessment Summary Airway patent Yes 06/24/24 08:39 DESIGN [email or web address] Spontaneous unlabored Yes 06/24/24 08:39 DESIGN [email or web address] respirations Mental status Awake 06/24/24 08:39 DESIGN [email or web address] nausea No 06/24/24 08:39 DESIGN [email or web address] Vomiting No 06/24/24 08:39 DESIGN [email or web address] Anesthesia Postop Eval I: Fluid Summary Crystalloid volume administer 20 06/24/24 08:39 DESIGN [email or web address] (ml) Colloids volume administered ( ml) Blood Product volume administered (ml) Total IV fluid infused 20 06/24/24 08:39 DESIGN [email or web address] Anesthesia Postop Eval I: Summary Notes Anesthesia Complication No 06/24/24 08:39 DESIGN [email or web address] Anesthesia Complication Comment: Post-operative progress note Anesthesia: Postop Eval II Evaluation Mental status: Awake Pain Level: 0 nausea: No Vomiting: No
== END 2024-06-24 09:25 | disposition home or self-care (01) ==
LOC: EN 07:23 → AC 07:25
PROVIDERS: PCP Internal Medicine; Referring Provider Internal Medicine; Visit Provider Internal Medicine Gastroenterology
PROC: 0DJ08ZZ Inspection of Upper Intestinal Tract, Via Natural or Artificial Opening Endoscopic (ICD-10-PCS; CPT 43235; principal; 2024-06-24 08:10)
DX: K44.9 Diaphragmatic hernia without obstruction or gangrene (principal); K21.9 Gastro-esophageal reflux disease without esophagitis; K20.0 Eosinophilic esophagitis; Z87.891 Personal history of nicotine dependence; K29.80 Duodenitis without bleeding; I10 Essential (primary) hypertension; Z79.899 Other long term (current) drug therapy; K31.1 Adult hypertrophic pyloric stenosis; K25.9 Gastric ulcer, unspecified as acute or chronic, without hemorrhage or perforation
CPT/HCPCS: 43239; 88305; 88342; A4216; J2405

== ENCOUNTER → 2024-10-19 | Outpatient (CLI) | payer BC, SELFPAY ==
[2024-10-19 16:40] LABS: Anion Gap 11 (5-15); BUN 23 mg/dL (4-19); BUN/Creat Ratio 24.0 RATIO (10-20); Calcium,Total 10.1 mg/dL (7.6-11.0); Carbon Dioxide 25.3 mmol/L (21.0-32.0); Chloride 105 mmol/L (98-108); Glucose 89 mg/dL (70-99); Potassium 4.6 mmol/L (3.3-5.1)
== END | disposition home or self-care (01) ==
LOC: LAB 15:45
PROVIDERS: PCP Internal Medicine; Referring Provider Student in an Organized Health Care Education/Training Program; Visit Provider Student in an Organized Health Care Education/Training Program
DX: I10 Essential (primary) hypertension (principal)
CPT/HCPCS: 36415; 80048